=== PATIENT | female | born 1955 ===

== ENCOUNTER 2017-12-26 19:18 | Inpatient (IN) | payer MEDICAID ==
[2017-12-26 19:18] VITALS: BMI 26.6
[2017-12-26] MEDS ORDERED: Albuterol-Ipratrop 3 mg / 0.5 (3 ml) UD INH STA ×3 (19:58→23:26)
[2017-12-26 20:10] LABS: BASO # 0.1 K/uL (0.0-0.2); EOS # 0.1 K/uL (0.0-0.7); EOS % 0.7 % (0.0-4.0); HEMOGLOBIN 14.4 g/dL (11.0-16.0); LYMPH # 3.3 K/uL (1.0-4.3); LYMPH % 24.1 % (20.0-40.0); MEAN CELL VOLUME 83.4 fL (81.0-99.0); MEAN CORPUSCULAR HEMOGLOBIN 27.2 pg (27.0-31.0); MEAN CORPUSCULAR HGB CONC 32.6 g/dL (33.0-37.0); MONO # 1.9 K/uL (0.0-0.8); NEUT # 8.2 K/uL (1.8-7.0); NEUT % 60.2 % (50.0-75.0); NRBC % 0.2 % (0.0-2.0); RBC 5.3 Mil/uL (3.80-5.20); RED CELL DISTRIBUTION WIDTH 24.7 % (11.5-14.5); WHITE BLOOD COUNT 13.7 K/uL (4.8-10.8)
--- NOTE | 2017-12-26 20:11 | C.PDOC ---
History Of Present Illness 62 year old female brought in by family for a complaint of feeling weak since yesterday. Patient reports she feel once yesterday and fell again today. Patient is now complaining of chest pain and left upper arm pain. Patient also reports she has a Hx of COPD is states she feels SOB. Denies fever, nausea, or vomiting. - HPI Chief Complaint (Nursing): Trauma History Per: Patient, Family History/Exam Limitations: no limitations Onset/Duration Of Symptoms: Days Recent travel outside of the [place]: No Past Medical History Reviewed: Historical Data, Nursing Documentation, Vital Signs Vital Signs: Last Vital Signs Temp 99.3 F 12/26/17 22:45 Pulse 100 H 12/26/17 22:53 Resp 18 12/26/17 22:45 BP 108/68 12/26/17 22:45 Pulse Ox 98 12/26/17 23:32 - Medical History PMH: Anxiety, Arthritis, Asthma, COPD, Depression, Diabetes, Emphysema, HTN Surgical History: Family History: States: Unknown Family Hx - Social History Hx Tobacco Use: Yes Hx Alcohol Use: No Hx Substance Use: No - Immunization History Hx Tetanus Toxoid Vaccination: No Hx Influenza Vaccination: No (Allergic to Eggs) Hx Pneumococcal Vaccination: No (Allergic to Eggs) Review Of Systems Constitutional: Positive for: Weakness. Negative for: Fever, Chills Cardiovascular: Positive for: Chest Pain. Negative for: Palpitations Respiratory: Positive for: Shortness of Breath. Negative for: Cough Gastrointestinal: Negative for: Nausea, Vomiting, Abdominal Pain Musculoskeletal: Positive for: Arm Pain Physical Exam - Physical Exam Appears: Non-toxic, Other (Alert, Conscious) Skin: Normal Color, Warm, Dry Head: Atraumatic, Normacephalic Eye(s): bilateral: Normal Inspection Oral Mucosa: Moist Chest: Symmetrical, No Tenderness Cardiovascular: Rhythm Regular Respiratory: No Rales, Rhonchi, Wheezing Gastrointestinal/Abdominal: Soft, Tenderness (Mild epigastric/LUQ) Back: No CVA Tenderness Extremity: Tenderness (Left upper arm) Neurological/Psych: Oriented x3, Normal Speech ED Course And Treatment - Laboratory Results Result Diagrams: 12/26/17 20:04 12/26/17 20:04 ECG Interpretation: Abnormal Interpretation Of ECG: SAinus tachycardia. LAD, LBBB, abnormal tracings Rate From EC O2 Sat by Pulse Oximetry: 98 (Room air) Pulse Ox Interpretation: Normal - Radiology CXR: Interpreted by Me, Viewed By Me CXR Interpretation: Yes: Cardiomegaly. No: No Acute Disease, Infiltrates Progress Note: CT head, CT chest, EKG, blood work, CXR, and left humerus x-ray ordered. IV fluids and duoneb administered. Disposition Discussed With : Miquel Macias Doctor Will See Patient In The: Hospital Counseled Patient/Family Regarding: Diagnosis - Disposition Disposition: HOSPITALIZED Disposition Time: 23:30 Condition: STABLE Forms: [facility] (Guatemalan) - POA Present On Arrival: Falls Or Trauma - Clinical Impression Clinical Impression: COPD exacerbation, Chest pain, Recurrent falls - Scribe Statement The provider has reviewed the documentation as recorded by the Scribkirill Christian All medical record entries made by the Scribe were at my direction and personally dictated by me. I have reviewed the chart and agree that the record accurately reflects my personal performance of the history, physical exam, medical decision making, and the department course for this patient. I have also personally directed, reviewed, and agree with the discharge instructions and disposition.
[2017-12-26 20:28] LABS: INR 1.2; PROTHROMBIN TIME 12.6 SECONDS (9.7-12.2)
[2017-12-26 20:37] LABS: ALBUMIN 3.6 g/dL (3.5-5.0); ALT/SGPT 20 U/L (9-52); AST/SGOT 24 U/L (14-36); BLOOD UREA NITROGEN 15 mg/dL (7-17); CALCIUM 9.4 mg/dl (8.6-10.4); GFR AFRICAN-AMERICAN > 60; GFR NON-AFRICAN AMERICAN > 60
[2017-12-26 20:38] LABS: B-TYPE NATRIURETIC PEPTIDE 851 pg/mL (0-900)
--- NOTE | 2017-12-26 21:08 | CT ---
EXAM: CT Head Without Intravenous Contrast CLINICAL HISTORY: 62 years old, female; Signs and symptoms; Weakness, extremity; Additional info: Unsteaduness, falling TECHNIQUE: Axial computed tomography images of the head/brain without intravenous contrast. All CT scans at this facility use one or more dose reduction techniques, viz.: automated exposure control; ma/kV adjustment per patient size (including targeted exams where dose is matched to indication; i.e. head); or iterative reconstruction technique. COMPARISON: No relevant prior studies available. FINDINGS: Brain: No intracranial hemorrhage. No mass. No definite edema. Ventricles: No hydrocephalus. Bones/joints: No acute fracture. Soft tissues: Unremarkable. Vasculature: Mild atherosclerotic disease of intracranial arteries. Sinuses: No acute sinusitis. Mastoid air cells: No mastoid effusion. Orbits: Unremarkable as visualized. IMPRESSION: 1. No definite acute intracranial abnormality. Acute infarction may be CT occult within first 24 hours. If a focal deficit persists, consider followup CT or MRI for further evaluation. 2. Incidental/non-acute findings are described above.
--- NOTE | 2017-12-26 21:23 | CT ---
EXAM: CT Chest Without Intravenous Contrast CLINICAL HISTORY: 62 years old, female; Signs and symptoms; Dyspnea and shortness of breath; Additional info: Sob/ copd TECHNIQUE: Axial computed tomography images of the chest without intravenous contrast. All CT scans at this facility use one or more dose reduction techniques, viz.: automated exposure control; ma/kV adjustment per patient size (including targeted exams where dose is matched to indication; i.e. head); or iterative reconstruction technique. Coronal and sagittal reformatted images were created and reviewed. COMPARISON: No relevant prior studies available. FINDINGS: Limitations: Lack of intravenous contrast. Motion artifact - mild to moderate. Lungs: Mild peripheral atelectasis/scarring. No consolidation. RLL calcified granuloma. Few pulmonary nodules, up to 0.4 cm. Pleural space: No pneumothorax. No significant effusion. Heart: Borderline cardiomegaly. No significant pericardial effusion. Bones/joints: Mild degenerative changes of spine. No acute fracture. Soft tissues: Unremarkable. Vasculature: Mild atherosclerotic disease. No aneurysm. Lymph nodes: No pathologically enlarged lymph nodes. IMPRESSION: 1. Pulmonary nodules. For low-risk patients, no follow-up is necessary. For high-risk patients (smoking history or other known risk factors) an optional CT at 12 months could be performed. 2. Incidental/non-acute findings are described above.
[2017-12-26] MEDS ORDERED: Iodixanol 320 MG/ML 100 ML BOTTLE IV ONE (21:43)
[2017-12-26] MEDS ORDERED: Albuterol-Ipratrop 3 mg / 0.5 (3 ml) UD ONE ×2 (22:48→23:30)
--- NOTE | 2017-12-26 23:16 | CT ---
EXAM: CT Angiography Chest With Intravenous Contrast CLINICAL HISTORY: 62 years old, female; Signs and symptoms; Dyspnea; Additional info: Elevated d-dimer TECHNIQUE: Axial computed tomographic angiography images of the chest with intravenous contrast using pulmonary embolism protocol. All CT scans at this facility use one or more dose reduction techniques, viz.: automated exposure control; ma/kV adjustment per patient size (including targeted exams where dose is matched to indication; i.e. head); or iterative reconstruction technique. MIP reconstructed images were created and reviewed. Coronal and sagittal reformatted images were created and reviewed. CONTRAST: 100 mL of VISIPAQUE 320 administered intravenously. COMPARISON: CT - CHEST W/O CONTRAST 2017-12-26 20:49 FINDINGS: Limitations: Motion artifact - mild. Pulmonary arteries: No definite pulmonary embolism. Aorta: Mild atherosclerotic disease. No aneurysm. Lungs: Mild peripheral atelectasis/scarring. No consolidation. Few pulmonary nodules, up to 0.3 cm. RLL calcified granuloma. Pleural space: No significant effusion. No pneumothorax. Heart: Borderline cardiomegaly. No significant pericardial effusion. Bones/joints: Mild degenerative changes of spine. No acute fracture. Soft tissues: Unremarkable. Lymph nodes: No pathologically enlarged lymph nodes. IMPRESSION: 1. No definite CT evidence of pulmonary embolism. 2. Pulmonary nodules. For low-risk patients, no follow-up is necessary. For high-risk patients (smoking history or other known risk factors) an optional CT at 12 months could be performed. 3. Incidental/non-acute findings are described above.
[2017-12-27] MEDS: Acetylcysteine 20% Inhal Soln (4ml) INH SCH ×4 (03:04→20:46)
[2017-12-27] MEDS: guaiFENesin 600 mg ER Tab PO SCH ×3 (03:41→18:32)
[2017-12-27 04:13] LABS: CK-MB 0.42 ng/mL (0.0-3.38)
[2017-12-27] MEDS: Fluticasone-Salmeterol 250-50mcg Diskus INH SCH ×2 (08:28→20:46)
[2017-12-27] MEDS: Albuterol-Ipratrop 3 mg / 0.5 (3 ml) UD INH SCH ×3 (08:54→20:46)
--- NOTE | 2017-12-27 09:23 | RAD ---
HISTORY: SOB COMPARISON: Chest x-ray 11/16/2017 TECHNIQUE: Chest one view . FINDINGS: LUNGS: Mild pulmonary vascular congestion. PLEURA: No pleural effusion is identified. CARDIOVASCULAR: Heart size is mildly enlarged.Atherosclerotic calcifications noted of the aorta. OSSEOUS STRUCTURES: Small calcification in the region of the right superior rotator cuff insertion, likely calcific tendinopathy. VISUALIZED UPPER ABDOMEN: Unremarkable. OTHER FINDINGS: None. IMPRESSION: Mild pulmonary vascular congestion. Mild cardiomegaly.
--- NOTE | 2017-12-27 10:00 | RAD ---
Left humerus three views History: Injury. Comparison: None available. Findings: No evidence of acute displaced fracture or dislocation. Impression: Negative acute. If pain persists, consider MRI.
[2017-12-27] MEDS: Enoxaparin 40 mg Syringe SC SCH (10:13)
[2017-12-27 13:17] LABS: CK-MB 0.45 ng/mL (0.0-3.38)
--- NOTE | 2017-12-27 13:59 | CARD ---
APPROVED REPORT EKG Measurement Heart [id number] <Conclusion> Sinus tachycardia Left axis deviation Left bundle branch block Abnormal ECG
--- NOTE | 2017-12-27 18:08 | CP.PCM.CON ---
History of Present Illness - History of Present Illness History of Present Illness: Mrs. Thomas is a 62-year-old woman with a past medical history of COPD, dyslipidemia, chronic pain, peripheral neuropathy, who presents with progressive weakness, mostly in the lower extremities, bilaterally. She states that she feels as though she can no longer get out of bed without assistance and has difficulty with ambulation. This weakness seems to have progressed over the last week. The patient also complains of back pain in the mid and lower back. CT scan of the head was normal. Review of Systems - Review of Systems All systems: reviewed and no additional remarkable complaints except Past Patient History - Infectious Disease Hx of Infectious Diseases: None - Past Medical History & Family History Past Medical History?: Yes - Past Social History Smoking Status: Light Smoker < 10 Cigarettes Daily - CARDIAC Hx Hypertension: Yes - PULMONARY Hx Chronic Obstructive Pulmonary Disease (COPD): Yes - ENDOCRINE/METABOLIC Hx Diabetes Mellitus Type 2: Yes - MUSCULOSKELETAL/RHEUMATOLOGICAL Hx Arthritis: Yes - PSYCHIATRIC Hx Substance Use: No - SURGICAL HISTORY Hx Section: Yes - ANESTHESIA Hx Anesthesia: Yes Hx Anesthesia Reactions: No Meds Allergies/Adverse Reactions: Allergies Allergy/AdvReac Type Severity Reaction Status Date / Time aspirin Allergy VOMITING Verified 06/14/16 12:03 EGG Allergy RASH Verified 12/26/17 19:28 - Medications Medications: Current Medications Acetylcysteine (Acetylcysteine 20%) 4 ml INH Q6H [facility] Last Admin: 12/27/17 13:56 Dose: 4 ml Albuterol/Ipratropium (Duoneb 3 Mg/0.5 Mg (3 Ml) Ud) 3 ml INH RQ6 [facility] Last Admin: 12/27/17 13:56 Dose: 3 ml Enoxaparin Sodium (Lovenox) 40 mg SC DAILY [facility] Last Admin: 12/27/17 10:13 Dose: 40 mg Gabapentin (Neurontin) 300 mg PO BID [facility] Last Admin: 12/27/17 10:13 Dose: 300 mg Guaifenesin (Mucinex La) 600 mg PO BID [facility] Last Admin: 12/27/17 10:13 Dose: 600 mg Lorazepam (Ativan) 0.5 mg PO TID PRN PRN Reason: Anxiety Methylprednisolone (Solu-Medrol) 60 mg IV Q12 [facility] Last Admin: 12/27/17 10:15 Dose: 60 mg Montelukast Sodium (Singulair) 10 mg PO HS [facility] Rosuvastatin Calcium (Crestor) 5 mg PO HS [facility] Fluticasone/Salmeterol (Advair Diskus 250/50) 1 puff INH RQ12 [facility] Last Admin: 12/27/17 08:28 Dose: Not Given Tramadol HCl (Ultram) 50 mg PO TID [facility] Last Admin: 12/27/17 13:31 Dose: 50 mg Physical Exam - Constitutional Appears: Well - Head Exam Head Exam: ATRAUMATIC, NORMAL INSPECTION, NORMOCEPHALIC - Eye Exam Eye Exam: EOMI, Normal appearance, PERRL - Cardiovascular Exam Cardiovascular Exam: REGULAR RHYTHM - Neurological Exam Neurological exam: Abnormal Gait, Alert, CN II-XII Intact, Oriented x3 Additional comments: Reflexes were normal. Strength in bilateral upper extremities was 4/5 for flexion and 3/5 for extension proximally and distally. Strength in bilateral lower extremities was 3/5 proximally and 4/5 distally, bilaterally. Sensation was intact throughout to LT/P. Gait could not be assessed. Results - Vital Signs Recent Vital Signs: Last Vital Signs Temp 97.3 F L 12/27/17 17:15 Pulse 92 H 12/27/17 17:15 Resp 20 12/27/17 17:15 BP 113/71 12/27/17 17:15 Pulse Ox 94 L 12/27/17 17:15 - Labs Result Diagrams: 12/26/17 20:04 12/26/17 20:04 Labs: Laboratory Results - last 24 hr 12/26/17 12/26/17 12/26/17 20:04 20:04 20:04 WBC 13.7 H RBC 5.30 H Hgb 14.4 Hct 44.2 MCV 83.4 D MCH 27.2 MCHC 32.6 L RDW 24.7 H Plt Count 413 H MPV 8.0 Neut % (Auto) 60.2 Lymph % (Auto) 24.1 [place] % (Auto) 14.0 H Eos % (Auto) 0.7 Baso % (Auto) 1.0 Neut # (Auto) 8.2 H Lymph # (Auto) 3.3 [place] # (Auto) 1.9 H Eos # (Auto) 0.1 Baso # (Auto) 0.1 PT 12.6 H INR 1.2 APTT 35 H D-Dimer, Quantitative 259 H Sodium 137 Potassium 4.3 Chloride 94 L Carbon Dioxide 36 H Anion Gap 11 BUN 15 Creatinine 0.7 Est GFR ( Amer) > 60 Est GFR (Non-Af Amer) > 60 POC Glucose (mg/dL) Random Glucose 128 H Calcium 9.4 Total Bilirubin 0.5 AST 24 ALT 20 Alkaline Phosphatase 135 H Total Creatine Kinase CK-MB (Mass) Troponin I NT-Pro-B Natriuret Pep 851 Total Protein 7.4 Albumin 3.6 Globulin 3.8 Albumin/Globulin Ratio 1.0 12/26/17 12/27/17 12/27/17 21:35 03:43 06:15 WBC RBC Hgb Hct MCV MCH MCHC RDW Plt Count MPV Neut % (Auto) Lymph % (Auto) [place] % (Auto) Eos % (Auto) Baso % (Auto) Neut # (Auto) Lymph # (Auto) [place] # (Auto) Eos # (Auto) Baso # (Auto) PT INR APTT D-Dimer, Quantitative Sodium Potassium Chloride Carbon Dioxide Anion Gap BUN Creatinine Est GFR ( Amer) Est GFR (Non-Af Amer) POC Glucose (mg/dL) 182 H Random Glucose Calcium Total Bilirubin AST ALT Alkaline Phosphatase Total Creatine Kinase 764 H CK-MB (Mass) 0.42 Troponin I < 0.0120 < 0.0120 NT-Pro-B Natriuret Pep Total Protein Albumin Globulin Albumin/Globulin Ratio 12/27/17 12/27/17 11:38 11:45 WBC RBC Hgb Hct MCV MCH MCHC RDW Plt Count MPV Neut % (Auto) Lymph % (Auto) [place] % (Auto) Eos % (Auto) Baso % (Auto) Neut # (Auto) Lymph # (Auto) [place] # (Auto) Eos # (Auto) Baso # (Auto) PT INR APTT D-Dimer, Quantitative Sodium Potassium Chloride Carbon Dioxide Anion Gap BUN Creatinine Est GFR ( Amer) Est GFR (Non-Af Amer) POC Glucose (mg/dL) 156 H Random Glucose Calcium Total Bilirubin AST ALT Alkaline Phosphatase Total Creatine Kinase 645 H CK-MB (Mass) 0.45 Troponin I < 0.0120 NT-Pro-B Natriuret Pep Total Protein Albumin Globulin Albumin/Globulin Ratio Assessment & Plan (1) Lower extremity weakness Assessment and Plan: The patient also complains of back pain and her reflexes are normal. She may have spinal cord involvement in the thoraco-lumbar region, or radiculopathy. I would like to obtain an MRI of the thoracic and lumbar spine for further evaluation. Thank you. Status: Acute Priority: High
[2017-12-28] MEDS: Acetylcysteine 20% Inhal Soln (4ml) INH SCH ×2 (02:03→08:42)
--- NOTE | 2017-12-28 05:40 | CP.PCM.HP ---
History of Present Illness - History of Present Illness History of Present Illness: Mrs. Thomas is a 62-year-old woman with a past medical history of COPD, dyslipidemia, chronic pain, peripheral neuropathy, who presents with progressive weakness, mostly in the lower extremities, bilaterally. She states that she feels as though she can no longer get out of bed without assistance and has difficulty with ambulation. This weakness seems to have progressed over the last week. The patient also complains of back pain in the mid and lower back. CT scan of the head was normal Present on Admission - Present on Admission Any Indicators Present on Admission: Yes Review of Systems - Review of Systems Systems not reviewed;Unavailable: Acuity of Condition - Constitutional Constitutional: Fatigue, Frequent Falls, Lethargy, Malaise. absent: As Per HPI , Anorexia, Chills, Daytime Sleepiness, Excessive Sweating, Fever, Headache, Increased Appetite, Night Sweats, Snoring, Sleep Apnea, Weight Gain, Weight Loss , Weakness, Other - Cardiovascular Cardiovascular: Dyspnea, Leg Edema. absent: As Per HPI, Acrocyanosis, Chest Pain, Chest Pain at Rest, Chest Pain with Activity, Claudication, Diaphoresis, Dyspnea on Exertion, Edema, Irregular Heart Rhythm, Pain Radiating to Arm/Neck/ Jaw, Leg Ulcers, Lightheadedness, Orthopnea, Palpitations, Paroxysmal Nocturnal Dyspnea, Pedal Edema, Radiating Pain, Rapid Heart Rate, Slow Heart Rate, Syncope , Other - Respiratory Respiratory: Cough. absent: As Per HPI, Dyspnea, Hemoptysis, Dyspnea on Exertion, Wheezing, Snoring, Stridor, Pain on Inspiration, Chest Congestion, Excessive Mucous Production, Change in Mucous Color, Pain with Coughing, Other - Gastrointestinal Gastrointestinal: absent: As Per HPI, Abdominal Pain, Belching, Bloating, Change in Bowel Habits, Change in Stool Character, Coffee Ground Emesis, Constipation, Cramping, Diarrhea, Dyspepsia, Dysphagia, Early Satiety, Excessive Flatus, Fecal Incontinence, Heartburn, Hematemesis, Hematochezia, Loose Stools, Melena, Nausea, Odynophagia, Temesmus, Vomiting, Other - Genitourinary Genitourinary: absent: As Per HPI, Change in Urinary Stream, Difficulty Urinating, Dysuria, Flank Pain, Hematuria, Pyuria, Nocturia, Urinary Incontinence, Urinary Frequency, Urinary Hesitance, Urinary Urgency, Voiding Freq/Small Amts, Freq UTI, Hx Renal/Bladder Calculi, Hx /Renal Surgery, Bladder Distension, Other - Reproductive: Female Reproductive:Female: absent: As Per HPI, Amenorrhea, Amenorrhea/ Control, Currently Menstual, Cycle <21 Days, Cycle >35 Days, Cycle Variable, Menses 1-7 Days, Menses >/= 8 Days, Menses Variable, Cycle > 4 Weeks Between, No Menses for 6 Months, Heavy Menses, Light Menses, Normal Menses, Spotting Between Cycles , S/P Hysterectomy, Menopausal, Post Menopausal, Premenarche, Abnormal Vaginal Bleeding, Dysmenorrhea, Dyspareunia, Genital Lesions, Genital Pruritis, Pelvic Pain, Prolapse Symptoms, Sexual Dysfunction, Vaginal Discharge, Vaginal Dryness , Vaginal Odor, Vaginal Pruritis, Other - Menstruation Menstruation: absent: As Per HPI, Amenorrhea, Amenorrhea/ Control, Currently Menstual, Cycle <21 Days, Cycle >35 Days, Cycle Variable, Menses 1-7 Days, Menses >/= 8 Days, Menses Variable, Cycle > 4 Weeks Between, No Menses for 6 Months, Heavy Menses, Light Menses, Normal Menses, Spotting Between Cycles , S/P Hysterectomy, Menopausal, Post Menopausal, Premenarche, Abnormal Vaginal Bleeding, Dysmenorrhea, Other - Musculoskeletal Musculoskeletal: Muscle Weakness, Myalgias - Integumentary Integumentary: Dry Skin - Neurological Neurological: Abnormal Gait - Psychiatric Psychiatric: absent: As Per HPI, Abnormal Sleep Pattern, Anhedonia, Anxiety, Auditory Hallucinations, Behavioral Changes, Change in Appetite, Change in Libido, Confusion, Depression, Difficulty Concentrating, Hallucinations, Homicidal Ideation, Hopelessness, Irritability, Memory Loss, Mood Swings, Panic Attacks, Paranoia, Suicidal Ideation, Visual Hallucinations, Tactile Hallucinations, Other - Endocrine Endocrine: absent: As Per HPI, Change in Body Appearance, Change in Libido, Cold Intolorance, Deepening of Voice, Excessive Sweating, Fatigue, Flushing, Heat Intolorance, Increase in Ring/Shoe/Hat Size, Palpitations, Polydipsia, Polyphagia, Polyuria, Other Past Patient History - Infectious Disease Hx of Infectious Diseases: None - Past Medical History & Family History Past Medical History?: Yes - Past Social History Smoking Status: Light Smoker < 10 Cigarettes Daily - CARDIAC Hx Hypertension: Yes - PULMONARY Hx Chronic Obstructive Pulmonary Disease (COPD): Yes - ENDOCRINE/METABOLIC Hx Diabetes Mellitus Type 2: Yes - MUSCULOSKELETAL/RHEUMATOLOGICAL Hx Arthritis: Yes - PSYCHIATRIC Hx Substance Use: No - SURGICAL HISTORY Hx Section: Yes - ANESTHESIA Hx Anesthesia: Yes Hx Anesthesia Reactions: No Meds Home Medications: Home Medication List Medication Instructions Recorded Confirmed Type predniSONE [Prednisone] 10 mg PO DAILY #8 tab 12/29/17 Rx Allergies/Adverse Reactions: Allergies Allergy/AdvReac Type Severity Reaction Status Date / Time aspirin Allergy VOMITING Verified 06/14/16 12:03 EGG Allergy RASH Verified 12/26/17 19:28 Physical Exam - Constitutional Appears: No Acute Distress - Head Exam Head Exam: ATRAUMATIC, NORMAL INSPECTION, NORMOCEPHALIC - Eye Exam Eye Exam: EOMI, Normal appearance, PERRL Pupil Exam: NORMAL ACCOMODATION, PERRL - Respiratory Exam Respiratory Exam: Decreased Breath Sounds, Wheezes - GI/Abdominal Exam GI & Abdominal Exam: Normal Bowel Sounds, Soft. absent: Tenderness - Rectal Exam Rectal Exam: Deferred Results - Vital Signs Recent Vital Signs: Last Vital Signs Temp 98.2 F 12/27/17 23:35 Pulse 82 12/28/17 04:12 Resp 20 12/27/17 23:35 BP 124/65 12/28/17 04:00 Pulse Ox 98 12/27/17 23:35 - Labs Result Diagrams: 12/28/17 08:57 12/28/17 08:57 Labs: Laboratory Results - last 24 hr 12/27/17 12/27/17 12/27/17 06:15 11:38 11:45 POC Glucose (mg/dL) 182 H 156 H Total Creatine Kinase 645 H CK-MB (Mass) 0.45 Troponin I < 0.0120 12/27/17 12/27/17 17:03 21:14 POC Glucose (mg/dL) 267 H 239 H Total Creatine Kinase CK-MB (Mass) Troponin I Assessment & Plan (1) COPD exacerbation Status: Acute (2) Lower extremity weakness Status: Acute Priority: High (3) Recurrent falls Status: Acute (4) Left bundle branch block (LBBB) Status: Acute (5) Asthma Status: Acute
--- NOTE | 2017-12-28 08:14 | CP.PCM.PN ---
Subjective - Date & Time of Evaluation Date of Evaluation: 12/28/17 Time of Evaluation: 08:12 - Subjective Subjective: Ms. Thomas was seen and examined at the bedside. She is alert, oriented in all spheres. She denies any discomfort except weakness of her bilateral lower extremities. She is able toraise both legs more than 10 seconds, but claims of feeling weak when standing and walking. She is able to follow commands.There was no untoward events overnight. Objective - Vital Signs/Intake and Output Vital Signs (last 24 hours): Temp Pulse Resp BP Pulse Ox 98.2 F 82 20 124/65 98 12/27/17 23:35 12/28/17 04:12 12/27/17 23:35 12/28/17 04:00 12/27/17 23:35 - Medications Medications: Current Medications Acetylcysteine (Acetylcysteine 20%) 4 ml INH Q6H [facility] Last Admin: 12/28/17 02:03 Dose: Not Given Albuterol/Ipratropium (Duoneb 3 Mg/0.5 Mg (3 Ml) Ud) 3 ml INH RQ6 [facility] Last Admin: 12/27/17 20:46 Dose: Not Given Enoxaparin Sodium (Lovenox) 40 mg SC DAILY [facility] Last Admin: 12/27/17 10:13 Dose: 40 mg Gabapentin (Neurontin) 300 mg PO BID [facility] Last Admin: 12/27/17 18:32 Dose: 300 mg Guaifenesin (Mucinex La) 600 mg PO BID [facility] Last Admin: 12/27/17 18:32 Dose: 600 mg Lorazepam (Ativan) 0.5 mg PO TID PRN PRN Reason: Anxiety Methylprednisolone (Solu-Medrol) 60 mg IV Q12 [facility] Last Admin: 12/27/17 21:38 Dose: 60 mg Montelukast Sodium (Singulair) 10 mg PO HS [facility] Last Admin: 12/27/17 21:38 Dose: 10 mg Rosuvastatin Calcium (Crestor) 5 mg PO HS [facility] Last Admin: 12/27/17 21:37 Dose: 5 mg Fluticasone/Salmeterol (Advair Diskus 250/50) 1 puff INH RQ12 [facility] Last Admin: 12/27/17 20:46 Dose: Not Given Tramadol HCl (Ultram) 50 mg PO TID [facility] Last Admin: 12/27/17 18:31 Dose: 50 mg - Labs Labs: 12/26/17 20:04 12/26/17 20:04 PT 12.6 SECONDS (9.7-12.2) H 12/26/17 20:04 INR 1.2 12/26/17 20:04 APTT 35 SECONDS (21-34) H 12/26/17 20:04 - Constitutional Appears: No Acute Distress - Head Exam Head Exam: NORMAL INSPECTION - Eye Exam Pupil Exam: PERRL - Neurological Exam Neurological Exam: Alert, Awake, Oriented x3 Neuro motor strength exam: Left Upper Extremity: 5, Right Upper Extremity: 5, Left Lower Extremity: 5 (weak upon standing), Right Lower Extremity: 5 (weak upo )
[2017-12-28] MEDS: Fluticasone-Salmeterol 250-50mcg Diskus INH SCH (08:42)
[2017-12-28] MEDS: Albuterol-Ipratrop 3 mg / 0.5 (3 ml) UD INH SCH ×2 (08:42→13:13)
[2017-12-28 09:08] LABS: BASO % 0.4 % (0.0-2.0); HEMOGLOBIN 13.2 g/dL (11.0-16.0); LYMPH # 1.1 K/uL (1.0-4.3); LYMPH % 10.6 % (20.0-40.0); MEAN CELL VOLUME 82.8 fL (81.0-99.0); MEAN CORPUSCULAR HEMOGLOBIN 27.3 pg (27.0-31.0); MEAN PLATELET VOLUME 8.1 fL (7.2-11.7); MONO # 0.6 K/uL (0.0-0.8); MONO % 5.9 % (0.0-10.0); NEUT # 8.6 K/uL (1.8-7.0); NEUT % 83.1 % (50.0-75.0); NRBC % 0.1 % (0.0-2.0); RBC 4.82 Mil/uL (3.80-5.20); RED CELL DISTRIBUTION WIDTH 23.3 % (11.5-14.5); WHITE BLOOD COUNT 10.4 K/uL (4.8-10.8)
[2017-12-28 09:26] LABS: BLOOD UREA NITROGEN 28 mg/dL (7-17); CALCIUM 8.7 mg/dl (8.6-10.4); GFR AFRICAN-AMERICAN > 60; GFR NON-AFRICAN AMERICAN > 60
[2017-12-28 09:33] LABS: CK-MB < 0.22 ng/mL (0.0-3.38)
[2017-12-28] MEDS: guaiFENesin 600 mg ER Tab PO SCH ×2 (10:00→18:47)
[2017-12-28] MEDS: Enoxaparin 40 mg Syringe SC SCH (10:01)
[2017-12-29 00:28] VITALS: RESP 20
[2017-12-29] MEDS: Albuterol-Ipratrop 3 mg / 0.5 (3 ml) UD INH SCH ×3 (01:32→13:03)
[2017-12-29] MEDS: Acetylcysteine 20% Inhal Soln (4ml) INH SCH ×2 (01:32→09:05)
[2017-12-29 04:08] VITALS: PULSE 72
--- NOTE | 2017-12-29 04:14 | CP.PCM.PN ---
Subjective - Date & Time of Evaluation Date of Evaluation: 12/28/17 Time of Evaluation: 19:45 - Subjective Subjective: was seen and examined at the bedside. She is alert, oriented in all spheres. She denies any discomfort except weakness of her bilateral lower extremities hence difficulty ambulting She is able toraise both legs more than 10 seconds, but claims of feeling weak when standing and walking. She is able to follow commands.There was no untoward events overnight. peding MRI of lumbar spine Objective - Vital Signs/Intake and Output Vital Signs (last 24 hours): Temp Pulse Resp BP Pulse Ox 98.2 F 72 20 127/69 97 12/28/17 23:30 12/29/17 01:00 12/28/17 23:30 12/28/17 23:30 12/28/17 23:30 Intake and Output: 12/28/17 12/29/17 18:59 06:59 Intake Total 780 300 Balance 780 300 - Medications Medications: Current Medications Acetylcysteine (Acetylcysteine 20%) 4 ml INH Q6H [facility] Last Admin: 12/29/17 01:32 Dose: 4 ml Albuterol/Ipratropium (Duoneb 3 Mg/0.5 Mg (3 Ml) Ud) 3 ml INH RQ6 [facility] Last Admin: 12/29/17 01:32 Dose: 3 ml Enoxaparin Sodium (Lovenox) 40 mg SC DAILY [facility] Last Admin: 12/28/17 10:01 Dose: 40 mg Gabapentin (Neurontin) 300 mg PO BID [facility] Last Admin: 12/28/17 18:47 Dose: 300 mg Guaifenesin (Mucinex La) 600 mg PO BID [facility] Last Admin: 12/28/17 18:47 Dose: 600 mg Lorazepam (Ativan) 0.5 mg PO TID PRN PRN Reason: Anxiety Last Admin: 12/28/17 22:15 Dose: 0.5 mg Methylprednisolone (Solu-Medrol) 60 mg IV Q12 [facility] Last Admin: 12/28/17 22:12 Dose: 60 mg Montelukast Sodium (Singulair) 10 mg PO HS [facility] Last Admin: 12/28/17 22:12 Dose: 10 mg Rosuvastatin Calcium (Crestor) 5 mg PO HS [facility] Last Admin: 12/28/17 22:12 Dose: 5 mg Fluticasone/Salmeterol (Advair Diskus 250/50) 1 puff INH RQ12 [facility] Last Admin: 12/28/17 08:42 Dose: Not Given Tramadol HCl (Ultram) 50 mg PO TID [facility] Last Admin: 12/28/17 18:48 Dose: 50 mg - Labs Labs: 12/28/17 08:57 12/28/17 08:57 PT 12.6 SECONDS (9.7-12.2) H 12/26/17 20:04 INR 1.2 12/26/17 20:04 APTT 35 SECONDS (21-34) H 12/26/17 20:04 - Constitutional Appears: No Acute Distress - Head Exam Head Exam: ATRAUMATIC, NORMAL INSPECTION, NORMOCEPHALIC - Eye Exam Eye Exam: EOMI, Normal appearance, PERRL Pupil Exam: NORMAL ACCOMODATION, PERRL - ENT Exam ENT Exam: Mucous Membranes Moist, Normal Exam - Respiratory Exam Respiratory Exam: Clear to Ausculation Bilateral, NORMAL BREATHING PATTERN - Cardiovascular Exam Cardiovascular Exam: REGULAR RHYTHM, +S1, +S2. absent: Murmur - GI/Abdominal Exam GI & Abdominal Exam: Soft, Normal Bowel Sounds. absent: Tenderness - Rectal Exam Rectal Exam: Deferred Assessment and Plan (1) COPD exacerbation Status: Acute (2) Dyspnea Status: Acute (3) Exacerbation of asthma Status: Acute (4) Left bundle branch block (LBBB) Status: Acute
[2017-12-29 07:55] VITALS: BP 138/71; TEMP 97.9; O2SAT 100
[2017-12-29] MEDS: Fluticasone-Salmeterol 250-50mcg Diskus INH SCH (09:02)
[2017-12-29] MEDS: Enoxaparin 40 mg Syringe SC SCH (10:34)
[2017-12-29] MEDS: guaiFENesin 600 mg ER Tab PO SCH (10:39)
--- NOTE | 2017-12-29 10:53 | MRI ---
PROCEDURE: MR THORACIC SPINE WITHOUT CONTRAST HISTORY: bilateral lower extremity weakness COMPARISON: None available. TECHNIQUE: Multiecho multiplanar sequences were performed through the thoracic spine without the use of intravenous contrast. FINDINGS: ALIGNMENT: Normal thoracic spinal alignment. Normal thoracic kyphosis. VERTEBRA: Vertebral body height are preserved. MARROW: Marrow signal unremarkable. PARASPINAL SOFT TISSUES: Unremarkable. CORD: Unremarkable thoracic cord. No volume loss, signal abnormality or syrinx. DISCS: Limited disc osteophyte complexes are identified at T6-7 and T7-8 as well as limited disc bulging at T8-9 and T9-10 without significant stenosis of the central canal. No neural foraminal stenosis throughout the examination. OTHER FINDINGS: None. IMPRESSION: Mild mid to inferior degenerative disc changes are identified without significant central canal stenosis resulting. No neural foraminal stenosis throughout. No disc herniation or fracture.
--- NOTE | 2017-12-29 18:00 | CP.PCM.PN ---
Subjective - Date & Time of Evaluation Date of Evaluation: 12/29/17 Time of Evaluation: 11:00 - Subjective Subjective: Awake, alert, no distress noted, able to walk short distances. Objective - Vital Signs/Intake and Output Vital Signs (last 24 hours): Temp Pulse Resp BP Pulse Ox 97.9 F 72 20 138/71 100 12/29/17 07:00 12/29/17 07:00 12/29/17 07:00 12/29/17 07:00 12/29/17 07:00 Intake and Output: 12/29/17 12/29/17 06:59 18:59 Intake Total 300 Balance 300 - Labs Labs: 12/28/17 08:57 12/28/17 08:57 PT 12.6 SECONDS (9.7-12.2) H 12/26/17 20:04 INR 1.2 12/26/17 20:04 APTT 35 SECONDS (21-34) H 12/26/17 20:04 Assessment and Plan - Assessment and Plan (Free Text) Assessment: Patient admitted with complaints of difficulty with walking and weakness, seen and examined. No acute complaits of pain, able to walk to the bathroom. Discussed with DR Macias, plan to discharge home on tapering dose of prednisone. RX for walker given. Patient has rest of the medications at home. Advised to bring all the meds to the office to re-evaluate. Daughter verbalized understanding.
--- NOTE | 2017-12-30 05:49 | CP.PCM.DIS ---
Provider - Provider Date of Admission: 12/27/17 13:39 Attending physician: Miquel Macias MD Time Spent in preparation of Discharge (in minutes): 45 Diagnosis - Discharge Diagnosis (1) COPD exacerbation Status: Acute (2) Lower extremity weakness Status: Acute Priority: High (3) Recurrent falls Status: Acute (4) Left bundle branch block (LBBB) Status: Acute Hospital Course - Lab Results Lab Results: Most Recent Lab Values WBC 10.4 K/uL (4.8-10.8) 12/28/17 08:57 RBC 4.82 Mil/uL (3.80-5.20) 12/28/17 08:57 Hgb 13.2 g/dL (11.0-16.0) 12/28/17 08:57 Hct 39.9 % (34.0-47.0) 12/28/17 08:57 MCV 82.8 fL (81.0-99.0) 12/28/17 08:57 MCH 27.3 pg (27.0-31.0) 12/28/17 08:57 MCHC 33.0 g/dL (33.0-37.0) 12/28/17 08:57 RDW 23.3 % (11.5-14.5) H 12/28/17 08:57 Plt Count 378 K/uL (130-400) 12/28/17 08:57 MPV 8.1 fL (7.2-11.7) 12/28/17 08:57 Neut % (Auto) 83.1 % (50.0-75.0) H 12/28/17 08:57 Lymph % (Auto) 10.6 % (20.0-40.0) L 12/28/17 08:57 [place] % (Auto) 5.9 % (0.0-10.0) 12/28/17 08:57 Eos % (Auto) 0.0 % (0.0-4.0) 12/28/17 08:57 Baso % (Auto) 0.4 % (0.0-2.0) 12/28/17 08:57 Neut # (Auto) 8.6 K/uL (1.8-7.0) H 12/28/17 08:57 Lymph # (Auto) 1.1 K/uL (1.0-4.3) 12/28/17 08:57 [place] # (Auto) 0.6 K/uL (0.0-0.8) 12/28/17 08:57 Eos # (Auto) 0.0 K/uL (0.0-0.7) 12/28/17 08:57 Baso # (Auto) 0.0 K/uL (0.0-0.2) 12/28/17 08:57 PT 12.6 SECONDS (9.7-12.2) H 12/26/17 20:04 INR 1.2 12/26/17 20:04 APTT 35 SECONDS (21-34) H 12/26/17 20:04 D-Dimer, Quantitative 259 ng/mlDDU (0-243) H 12/26/17 20:04 Sodium 142 mmol/L (132-148) 12/28/17 08:57 Potassium 4.5 mmol/L (3.6-5.2) 12/28/17 08:57 Chloride 97 mmol/L (98-107) L 12/28/17 08:57 Carbon Dioxide 35 mmol/L (22-30) H 12/28/17 08:57 Anion Gap 14 (10-20) 12/28/17 08:57 BUN 28 mg/dL (7-17) H 12/28/17 08:57 Creatinine 0.7 mg/dL (0.7-1.2) 12/28/17 08:57 Est GFR ( Amer) > 60 12/28/17 08:57 Est GFR (Non-Af Amer) > 60 12/28/17 08:57 POC Glucose (mg/dL) 194 mg/dL (65-110) H 12/29/17 11:17 Random Glucose 181 mg/dL (65-105) H 12/28/17 08:57 Calcium 8.7 mg/dl (8.6-10.4) 12/28/17 08:57 Total Bilirubin 0.5 mg/dL (0.2-1.3) 12/26/17 20:04 AST 24 U/L (14-36) 12/26/17 20:04 ALT 20 U/L (9-52) 12/26/17 20:04 Alkaline Phosphatase 135 U/L (38-126) H 05/23/18 20:04 Total Creatine Kinase 216 U/L (30-135) H 12/28/17 08:57 CK-MB (Mass) < 0.22 ng/mL (0.0-3.38) 12/28/17 08:57 Troponin I < 0.0120 ng/mL (0.00-0.120) 12/28/17 08:57 NT-Pro-B Natriuret Pep 851 pg/mL (0-900) 12/26/17 20:04 Total Protein 7.4 g/dL (6.3-8.3) 12/26/17 20:04 Albumin 3.6 g/dL (3.5-5.0) 12/26/17 20:04 Globulin 3.8 gm/dL (2.2-3.9) 12/26/17 20:04 Albumin/Globulin Ratio 1.0 (1.0-2.1) 12/26/17 20:04 - Hospital Course Hospital Course: Patient admitted with complaints of difficulty with walking and weakness, seen and examined. No acute complaits of pain, able to walk to the bathroom. plan to discharge home on tapering dose of prednisone. RX for walker given. Patient has rest of the medications at home. Advised to bring all the meds to the office to re-evaluate. Daughter verbalized understanding. Discharge Exam - Head Exam Head Exam: ATRAUMATIC, NORMAL INSPECTION, NORMOCEPHALIC - Eye Exam Eye Exam: EOMI, Normal appearance, PERRL Pupil Exam: NORMAL ACCOMODATION, PERRL - ENT Exam ENT Exam: Mucous Membranes Moist - Respiratory Exam Respiratory Exam: Decreased Breath Sounds, Rales - Cardiovascular Exam Cardiovascular Exam: +S1, +S2 - GI/Abdominal Exam GI & Abdominal Exam: Normal Bowel Sounds Discharge Plan - Discharge Medications Prescriptions: predniSONE [Prednisone] 10 mg PO DAILY #8 tab - Follow Up Plan Condition: STABLE Disposition: HOME/ ROUTINE Instructions: Asthma in Adults, Asthma, Adult (DC), Preventing Falls, Asthma ( DC), Asthma (GEN) Referrals: Miquel Macias MD [Staff Provider] -
== END 2017-12-29 16:37 | disposition home or self-care (01) | DRG 88 ==
LOC: C.ER 19:18 → C.9E 23:49 → C.6T 23:52 → OBSVTOIN 12-27 13:39
PROVIDERS: ADMIT Internal Medicine; ATTEND Internal Medicine
DX: J44.1 Chronic obstructive pulmonary disease with (acute) exacerbation (principal); J45.901 Unspecified asthma with (acute) exacerbation; E11.40 Type 2 diabetes mellitus with diabetic neuropathy, unspecified; E11.9 Type 2 diabetes mellitus without complications; E78.5 Hyperlipidemia, unspecified; I10 Essential (primary) hypertension; I44.7 Left bundle-branch block, unspecified; R29.6 Repeated falls

== ENCOUNTER 2018-08-17 09:09 | Inpatient (IN) | payer MEDICAID ==
[2018-08-17 09:09] VITALS: BMI 26.6
[2018-08-17] MEDS ORDERED: Cefepime IV 2 gm in Dextrose 2 GM/100 ML BAG IVPB STA (09:29)
[2018-08-17] MEDS ORDERED: Amiodarone 150mg/3 ml vial ONE (09:48)
--- NOTE | 2018-08-17 09:48 | C.PDOC ---
History Of Present Illness History of present illness is limited due to patients clinical condition. History per family and patient. 63 y/o female brought in by family for new onset of fever, chills, SOB, and pleuritic pain since last night. Patient has a history of COPD and is intermittently on home O2 2L. Denies any other associated symptoms. LIMITED DUE TO CLIN COND, HX PER FAMILY AND PT NEW ONSET FEVER, CHILLS, SOB, PLEURITIC PAIN SINCE LAST NIGHT. HO COPD, INTERMIT HOME O2 2L. ROS UTO EXAM MOD DIST HEENT NEG LUNGS TACHYPNEA, RETRACTIONS B/L EXP WHEEZE SPEAKING SHORT SENTENCES CV RRR TACHY NO EDEMA HOT, DRY REMAINDER NEG MDM ECHO REPORT 2016 REVIEWED. DEFER IV BOLUS PER SEPSIS PROTOCOL DUE TO FINDINGS PRIOR ECHO. NEBS, O2, ABX Time Seen by Provider: 08/17/18 09:28 Chief Complaint (Nursing): Shortness Of Breath History Per: Patient, Family History/Exam Limitations: clinical condition Onset/Duration Of Symptoms: Days Current Symptoms Are (Timing): Still Present Past Medical History Reviewed: Historical Data, Nursing Documentation, Vital Signs Vital Signs: Last Vital Signs Temp 103.1 F H 08/17/18 09:16 Pulse 145 H 08/17/18 09:16 Resp 22 08/17/18 09:16 BP 159/99 H 08/17/18 09:16 Pulse Ox 84 L 08/17/18 09:16 - Medical History PMH: Anxiety, Arthritis, Asthma, COPD, Depression, Diabetes, Emphysema, HTN Surgical History: Family History: States: No Known Family Hx - Social History Hx Tobacco Use: Yes Hx Alcohol Use: No Hx Substance Use: No - Immunization History Hx Tetanus Toxoid Vaccination: No Hx Influenza Vaccination: No (Allergic to Eggs) Hx Pneumococcal Vaccination: No (Allergic to Eggs) Review Of Systems Review Of Systems: ROS cannot be obtained secondary to pt's inabilty to answer questions. Physical Exam - Physical Exam Appears: Non-toxic, In Acute Distress (in moderate distress) Skin: Dry, Other (Hot) Head: Atraumatic, Normacephalic Eye(s): bilateral: Normal Inspection Ear(s): Bilateral: Normal Oral Mucosa: Moist Throat: Normal, No Erythema, No Exudate, Other (uvula midline) Neck: Supple Chest: Symmetrical Cardiovascular: Rhythm Regular (tachycardic), No Murmur Respiratory: Wheezing (expiratory wheezing bilaterally), Other (tachypnea; retractions) Gastrointestinal/Abdominal: Soft, No Tenderness Extremity: No Pedal Edema Extremity: Bilateral: Normal ROM Neurological/Psych: Oriented x3, Other (Speaking short sentences) ED Course And Treatment - Laboratory Results Result Diagrams: 08/17/18 09:54 08/17/18 10:37 ECG: Interpreted By Ct ECG Rhythm: L BBB Interpretation Of ECG: OLD EKG 12/2017 +LBBB Rate From EC O2 Sat by Pulse Oximetry: 84 (RA) Pulse Ox Interpretation: Abnormal - Radiology CXR: Interpreted by Me CXR Interpretation: Yes: No Acute Disease - Other Rad CXR X-Ray: Read By Radiologist Interpretation: FINDINGS: LUNGS: The lungs are well inflated and clear. PLEURA: No pleural effusions or pneumothorax. CARDIOVASCULAR: The heart is normal in size. There are aortic atherosclerotic calcifications present. OSSEOUS STRUCTURES: Within normal limits for the patient's age. VISUALIZED UPPER ABDOMEN: Normal. OTHER FINDINGS: None. IMPRESSION: No active pulmonary disease. Progress - Data Reviewed Data Reviewed: Lab, Diagnostic imaging, EKG, Old records - Critical Care Citical Care: Excluding Proc Time Critical Care Time: 90 minutes Medical Decision Making Medical Decision Making: Plan: --VBG --Bloodwork --Chest XR --UA --Maxipime IV --Duoneb --Solumedrol IV --IV fluids --Tamiflu PO --Tylenol PO Disposition Counseled Patient/Family Regarding: Studies Performed, Diagnosis - Disposition Disposition: HOSPITALIZED Disposition Time: 11:13 Condition: STABLE - POA Present On Arrival: None, Poor Glycemic Control - Clinical Impression Clinical Impression: COPD exacerbation, Influenza-like illness, Hypoxia - Scribe Statement The provider has reviewed the documentation as recorded by the Dianne Hathaway Provider Attestation: All medical record entries made by the Dianne were at my direction and personally dictated by me. I have reviewed the chart and agree that the record accurately reflects my personal performance of the history, physical exam, medical decision making, and the department course for this patient. I have also personally directed, reviewed, and agree with the discharge instructions and disposition.
[2018-08-17] MEDS ORDERED: MethylPREDNISolone 40 mg Vial IVP STA (09:53)
[2018-08-17] MEDS ORDERED: Sodium Chloride 0.9% 1,000 ML ONE ×2 (09:54→10:03)
[2018-08-17 09:59] LABS: BASO # 0.1 K/uL (0.0-0.2); BASO % 0.4 % (0.0-2.0); EOS # 0.1 K/uL (0.0-0.7); EOS % 0.5 % (0.0-4.0); HEMOGLOBIN 16.5 g/dL (11.0-16.0); LYMPH # 3.2 K/uL (1.0-4.3); LYMPH % 17.2 % (20.0-40.0); MEAN CELL VOLUME 92.5 fL (81.0-99.0); MEAN CORPUSCULAR HEMOGLOBIN 30.4 pg (27.0-31.0); MEAN CORPUSCULAR HGB CONC 32.9 g/dL (33.0-37.0); MEAN PLATELET VOLUME 8.5 fL (7.2-11.7); MONO # 2.2 K/uL (0.0-0.8); MONO % 12.1 % (0.0-10.0); NEUT # 12.8 K/uL (1.8-7.0); NEUT % 69.8 % (50.0-75.0); NRBC % 0.1 % (0.0-2.0); RBC 5.41 Mil/uL (3.80-5.20); RED CELL DISTRIBUTION WIDTH 17.2 % (11.5-14.5); WHITE BLOOD COUNT 18.3 K/uL (4.8-10.8)
[2018-08-17] MEDS: Albuterol-Ipratrop 3 mg / 0.5 (3 ml) UD IH SCH ×3 (10:00→10:20)
[2018-08-17] MEDS ORDERED: MethylPREDNISolone 40 mg Vial ONE ×2 (10:03→17:29)
[2018-08-17] MEDS ORDERED: Sodium Chloride 0.9% 100 ML ONE (10:03)
[2018-08-17 10:05] LABS: VENOUS BLOOD GAS PCO2 70 mmHg (40-60); VENOUS BLOOD GAS PO2 20 mm/Hg (30-55); VENOUS BLOOD PH 7.39 (7.32-7.43)
[2018-08-17] MEDS ORDERED: Albuterol-Ipratrop 3 mg / 0.5 (3 ml) UD ONE ×3 (10:10→19:47)
[2018-08-17 10:59] LABS: ALB/GLOB RATIO 1.3 (1.0-2.1); ALBUMIN 4.1 g/dL (3.5-5.0); ALT/SGPT 23 U/L (9-52); AST/SGOT 21 U/L (14-36); BLOOD UREA NITROGEN 11 mg/dL (7-17); CALCIUM 8.4 mg/dl (8.6-10.4); GFR NON-AFRICAN AMERICAN > 60
[2018-08-17 11:08] LABS: B-TYPE NATRIURETIC PEPTIDE 652 pg/mL (0-900)
[2018-08-17] MEDS ORDERED: Magnesium Sulfate 1 gm in D5W 1 GM/100 ML BAG IVPB STA (11:12)
[2018-08-17] MEDS ORDERED: Magnesium Sulfate 1 gm in D5W 1 GM/100 ML BAG IVPB ONE (11:19)
[2018-08-17 11:20] LABS: SQUAMOUS EPITHIAL 7 /hpf (0-5); URINE BACTERIA RARE (<OCC); URINE BILIRUBIN NEGATIVE (NEGATIVE); URINE BLOOD NEGATIVE (NEGATIVE); URINE CLARITY Clear (Clear); URINE COLOR Yellow (YELLOW); URINE GLUCOSE (UA) NORMAL (Normal); URINE LEUKOCYTE ESTERASE TRACE Leu/uL (Negative); URINE PROTEIN 2+ mg/dL (NEGATIVE); URINE UROBILINOGEN NORMAL mg/dL (0.2-1.0)
[2018-08-17] MEDS ORDERED: Glucagon Recombinant 1 mg Inj IM PRN (12:58)
[2018-08-17] MEDS ORDERED: Dextrose 50% SYRINGE Inj (50 ml) IV PRN (12:58)
[2018-08-17 13:32] LABS: VENOUS BLOOD GAS PCO2 57 mmHg (40-60); VENOUS BLOOD GAS PO2 55 mm/Hg (30-55); VENOUS BLOOD PH 7.37 (7.32-7.43)
[2018-08-17] MEDS: ceFAZolin IV 1 gm in Dextrose 1 GM/50 ML BAG IVPB SCH ×2 (13:51→22:08)
--- NOTE | 2018-08-17 14:29 | RAD ---
Date of service: 08/17/2018 HISTORY: Sepsis Patient COMPARISON: 12/26/2017. FINDINGS: LUNGS: The lungs are well inflated and clear. PLEURA: No pleural effusions or pneumothorax. CARDIOVASCULAR: The heart is normal in size. There are aortic atherosclerotic calcifications present. OSSEOUS STRUCTURES: Within normal limits for the patient's age. VISUALIZED UPPER ABDOMEN: Normal. OTHER FINDINGS: None. IMPRESSION: No active pulmonary disease.
[2018-08-17] MEDS: Albuterol-Ipratrop 3 mg / 0.5 (3 ml) UD INH SCH ×2 (15:03→19:49)
[2018-08-17] MEDS: (Novolog) Insulin Aspart, Recombinant 100 u/ml 10 ml vial SC SCH ×2 (16:22→22:31)
[2018-08-17] MEDS ORDERED: (Novolog) Insulin Aspart, Recombinant 100 u/ml 10 ml vial ONE (16:24)
--- NOTE | 2018-08-17 16:29 | CP.PCM.CON ---
History of Present Illness - History of Present Illness History of Present Illness: reason for consultation: cough productive of yellowish phlegm and shortness of breath 63-year-old female with history of smoking, asthma/COPD presented to emergency room with productive cough or shortness of breath, fever chills since yesterday. Chest x-ray done showed no infiltrate. Review of Systems - Review of Systems All systems: reviewed and no additional remarkable complaints except (productive cough and shortness of breath) Past Patient History - Infectious Disease Hx of Infectious Diseases: None - Past Medical History & Family History Past Medical History?: Yes - Past Social History Smoking Status: Light Smoker < 10 Cigarettes Daily - CARDIAC Hx Hypertension: Yes - PULMONARY Hx Asthma: Yes Hx Chronic Obstructive Pulmonary Disease (COPD): Yes Hx Emphysema: Yes - ENDOCRINE/METABOLIC Hx Diabetes Mellitus Type 2: Yes - MUSCULOSKELETAL/RHEUMATOLOGICAL Hx Arthritis: Yes - PSYCHIATRIC Hx Anxiety: Yes Hx Depression: Yes Hx Substance Use: No - SURGICAL HISTORY Hx Section: Yes - ANESTHESIA Hx Anesthesia: Yes Hx Anesthesia Reactions: No Meds Allergies/Adverse Reactions: Allergies Allergy/AdvReac Type Severity Reaction Status Date / Time aspirin Allergy VOMITING Verified 06/14/16 12:03 EGG Allergy RASH Verified 12/26/17 19:28 - Medications Medications: Current Medications Acetaminophen (Tylenol 325mg Tab) 975 mg PO ONCE PRN PRN Reason: Fever >100.4 F Last Admin: 08/17/18 09:27 Dose: 975 mg Acetaminophen (Tylenol 325mg Tab) 650 mg PO Q6 PRN PRN Reason: Fever >100.4 F Albuterol/Ipratropium (Duoneb 3 Mg/0.5 Mg (3 Ml) Ud) 3 ml INH RQ6 [facility] Last Admin: 08/17/18 15:03 Dose: 3 ml Dextrose (Dextrose 50% Inj) 0 ml IV STAT PRN; Protocol PRN Reason: Hypoglycemia Protocol Dextrose (Glutose 15) 0 gm PO ONCE PRN; Protocol PRN Reason: Hypoglycemia Protocol Enoxaparin Sodium (Lovenox) 40 mg SC DAILY [facility] Glucagon (Glucagen Diagnostic Kit) 0 mg IM STAT PRN; Protocol PRN Reason: Hypoglycemia Protocol Sodium Chloride (Sodium Chloride 0.9%) 2,100 mls @ 200 mls/hr IV .[id number] [facility] Last Admin: 08/17/18 09:52 Dose: 200 mls/hr Cefazolin Sodium/Dextrose (Ancef Iv 1 Gm Duplex) 1 gm in 50 mls @ 100 mls/hr IVPB Q8H [facility]; Protocol Last Admin: 08/17/18 13:51 Dose: 100 mls/hr Dextrose (Dextrose 5% In Water 1000 Ml) 1,000 mls @ 0 mls/hr IV .Q0M PRN; Protocol PRN Reason: Hypoglycemia Protocol Insulin Aspart (Novolog) 0 unit SC ACHS [facility]; Protocol Last Admin: 08/17/18 16:22 Dose: 4 unit Metformin HCl (Glucophage) 500 mg PO DAILY [facility] Methylprednisolone (Solu-Medrol) 60 mg IVP Q6 [facility] Pantoprazole Sodium (Protonix Inj) 40 mg IVP DAILY [facility] Last Admin: 08/17/18 13:40 Dose: 40 mg Risperidone (Risperdal Tab) 3 mg PO DAILY [facility] Rosuvastatin Calcium (Crestor) 5 mg PO HS [facility] Physical Exam - Head Exam Head Exam: ATRAUMATIC, NORMOCEPHALIC - ENT Exam ENT Exam: Mucous Membranes Moist - Neck Exam Neck exam: Positive for: Normal Inspection - Respiratory Exam Respiratory Exam: Rhonchi, Wheezes - Cardiovascular Exam Cardiovascular Exam: REGULAR RHYTHM - GI/Abdominal Exam GI & Abdominal Exam: Normal Bowel Sounds, Soft - Extremities Exam Extremities exam: Positive for: normal inspection Results - Vital Signs Recent Vital Signs: Last Vital Signs Temp 98.8 F 08/17/18 14:14 Pulse 90 08/17/18 16:20 Resp 15 08/17/18 16:20 BP 135/67 08/17/18 16:20 Pulse Ox 94 L 08/17/18 16:20 - Labs Result Diagrams: 08/17/18 09:54 08/17/18 10:37 Labs: Laboratory Results - last 24 hr 08/17/18 08/17/18 08/17/18 09:40 09:54 09:54 WBC 18.3 H D RBC 5.41 H Hgb 16.5 H D Hct 50.0 H MCV 92.5 D MCH 30.4 MCHC 32.9 L RDW 17.2 H Plt Count 388 MPV 8.5 Neut % (Auto) 69.8 Lymph % (Auto) 17.2 L [place] % (Auto) 12.1 H Eos % (Auto) 0.5 Baso % (Auto) 0.4 Neut # (Auto) 12.8 H Lymph # (Auto) 3.2 [place] # (Auto) 2.2 H Eos # (Auto) 0.1 Baso # (Auto) 0.1 PT 11.0 INR 1.0 APTT 22 pO2 VBG pH VBG pCO2 VBG HCO3 VBG Total CO2 VBG O2 Sat (Calc) VBG Base Excess VBG Potassium Sodium Chloride Glucose Lactate Liter Flow Crit Value Called To Crit Value Called By Crit Value Read Back Blood Gas Notified Time Potassium Carbon Dioxide Anion Gap BUN Creatinine Est GFR ( Amer) Est GFR (Non-Af Amer) POC Glucose (mg/dL) 122 H Random Glucose Calcium Phosphorus Magnesium Total Bilirubin AST ALT Alkaline Phosphatase Troponin I NT-Pro-B Natriuret Pep Total Protein Albumin Globulin Albumin/Globulin Ratio Venous Blood Potassium Urine Color Urine Clarity Urine pH Ur Specific [place] Urine Protein Urine Glucose (UA) Urine Ketones Urine Blood Urine Nitrate Urine Bilirubin Urine Urobilinogen Ur Leukocyte Esterase Urine WBC (Auto) Urine RBC (Auto) Ur Squamous Epith Cells Urine Bacteria Influenza Typ A,B (EIA) 08/17/18 08/17/18 08/17/18 09:54 09:58 10:37 WBC RBC Hgb Hct MCV MCH MCHC RDW Plt Count MPV Neut % (Auto) Lymph % (Auto) [place] % (Auto) Eos % (Auto) Baso % (Auto) Neut # (Auto) Lymph # (Auto) [place] # (Auto) Eos # (Auto) Baso # (Auto) PT INR APTT pO2 20 L VBG pH 7.39 VBG pCO2 70 H* VBG HCO3 34.1 VBG Total CO2 44.5 H VBG O2 Sat (Calc) 35.2 L VBG Base Excess 14.0 H VBG Potassium 4.5 Sodium 139.0 132 Chloride 95.0 L 95 L Glucose 89 Lactate 1.8 Liter Flow Crit Value Called To Dr lewis Crit Value Called By Brian valdez computed tomography technologist Crit Value Read Back Y Blood Gas Notified Time 1005 Potassium 3.7 Carbon Dioxide 33 H Anion Gap 8 L BUN 11 Creatinine 0.6 L Est GFR ( Amer) > 60 Est GFR (Non-Af Amer) > 60 POC Glucose (mg/dL) Random Glucose 143 H D Calcium 8.4 L Phosphorus 3.7 Magnesium 1.2 L Total Bilirubin 0.6 AST 21 ALT 23 Alkaline Phosphatase 108 Troponin I 0.0290 NT-Pro-B Natriuret Pep 652 Total Protein 7.3 Albumin 4.1 Globulin 3.2 Albumin/Globulin Ratio 1.3 Venous Blood Potassium 4.5 Urine Color Urine Clarity Urine pH Ur Specific [place] Urine Protein Urine Glucose (UA) Urine Ketones Urine Blood Urine Nitrate Urine Bilirubin Urine Urobilinogen Ur Leukocyte Esterase Urine WBC (Auto) Urine RBC (Auto) Ur Squamous Epith Cells Urine Bacteria Influenza Typ A,B (EIA) Negative for flu a/b 08/17/18 08/17/18 08/17/18 11:00 13:14 13:28 WBC RBC Hgb Hct MCV MCH MCHC RDW Plt Count MPV Neut % (Auto) Lymph % (Auto) [place] % (Auto) Eos % (Auto) Baso % (Auto) Neut # (Auto) Lymph # (Auto) [place] # (Auto) Eos # (Auto) Baso # (Auto) PT INR APTT pO2 55 VBG pH 7.37 VBG pCO2 57 VBG HCO3 29.3 VBG Total CO2 34.7 H VBG O2 Sat (Calc) 91.0 H VBG Base Excess 6.0 H VBG Potassium 3.7 Sodium 136.0 Chloride 98.0 Glucose 172 H Lactate 0.9 Liter Flow 2.0 Crit Value Called To Crit Value Called By Crit Value Read Back Blood Gas Notified Time Potassium Carbon Dioxide Anion Gap BUN Creatinine Est GFR ( Amer) Est GFR (Non-Af Amer) POC Glucose (mg/dL) 191 H Random Glucose Calcium Phosphorus Magnesium Total Bilirubin AST ALT Alkaline Phosphatase Troponin I NT-Pro-B Natriuret Pep Total Protein Albumin Globulin Albumin/Globulin Ratio Venous Blood Potassium 3.7 Urine Color Yellow Urine Clarity Clear Urine pH 6.0 Ur Specific [place] 1.014 Urine Protein 2+ H Urine Glucose (UA) Normal Urine Ketones Negative Urine Blood Negative Urine Nitrate Negative Urine Bilirubin Negative Urine Urobilinogen Normal Ur Leukocyte Esterase Trace Urine WBC (Auto) 6 H Urine RBC (Auto) 4 H Ur Squamous Epith Cells 7 H Urine Bacteria Rare Influenza Typ A,B (EIA) 08/17/18 16:17 WBC RBC Hgb Hct MCV MCH MCHC RDW Plt Count MPV Neut % (Auto) Lymph % (Auto) [place] % (Auto) Eos % (Auto) Baso % (Auto) Neut # (Auto) Lymph # (Auto) [place] # (Auto) Eos # (Auto) Baso # (Auto) PT INR APTT pO2 VBG pH VBG pCO2 VBG HCO3 VBG Total CO2 VBG O2 Sat (Calc) VBG Base Excess VBG Potassium Sodium Chloride Glucose Lactate Liter Flow Crit Value Called To Crit Value Called By Crit Value Read Back Blood Gas Notified Time Potassium Carbon Dioxide Anion Gap BUN Creatinine Est GFR ( Amer) Est GFR (Non-Af Amer) POC Glucose (mg/dL) 274 H Random Glucose Calcium Phosphorus Magnesium Total Bilirubin AST ALT Alkaline Phosphatase Troponin I NT-Pro-B Natriuret Pep Total Protein Albumin Globulin Albumin/Globulin Ratio Venous Blood Potassium Urine Color Urine Clarity Urine pH Ur Specific [place] Urine Protein Urine Glucose (UA) Urine Ketones Urine Blood Urine Nitrate Urine Bilirubin Urine Urobilinogen Ur Leukocyte Esterase Urine WBC (Auto) Urine RBC (Auto) Ur Squamous Epith Cells Urine Bacteria Influenza Typ A,B (EIA) Assessment & Plan (1) COPD exacerbation Status: Acute Comment: elevated white count. Productive cough. IV antibiotics. IV steroids and nebulizer treatment. Patient advised to quit smoking. Sputum for culture and sensitivity
[2018-08-17] MEDS ORDERED: Enoxaparin 40 mg Syringe ONE (17:29)
[2018-08-17] MEDS: Enoxaparin 40 mg Syringe SC SCH (17:30)
[2018-08-17] MEDS: MethylPREDNISolone 40 mg Vial IVP SCH (17:30)
[2018-08-18] MEDS: MethylPREDNISolone 40 mg Vial IVP SCH ×5 (00:14→23:35)
[2018-08-18] MEDS: Albuterol-Ipratrop 3 mg / 0.5 (3 ml) UD INH SCH ×4 (01:21→19:34)
[2018-08-18] MEDS: ceFAZolin IV 1 gm in Dextrose 1 GM/50 ML BAG IVPB SCH ×3 (05:52→23:37)
[2018-08-18] MEDS: (Novolog) Insulin Aspart, Recombinant 100 u/ml 10 ml vial SC SCH ×3 (07:56→17:33)
[2018-08-18] MEDS: Enoxaparin 40 mg Syringe SC SCH (09:12)
--- NOTE | 2018-08-18 21:33 | CP.PCM.PN ---
Subjective - Date & Time of Evaluation Date of Evaluation: 08/18/18 Time of Evaluation: 21:33 - Subjective Subjective: Pulmonary Folow up, Covering Dr Romo The Patient was seen and examined at the bedside, Medical records reviewed, and management issues were discussed and formulated with the house staff. Events reviewed 63-year-old female with history of smoking, asthma/COPD Who presented to emergency room with productive cough or shortness of breath, fever chills since yesterday. Chest x-ray done showed no infiltrate. Feelig slightly better, Breathing and cough improved Awake, comfortable, in no distress Afebrile No fever/chills No chhest pain Objective - Vital Signs/Intake and Output Vital Signs (last 24 hours): Temp Pulse Resp BP Pulse Ox 98.8 F 110 H 18 120/68 98 08/18/18 18:29 08/18/18 18:29 08/18/18 18:29 08/18/18 18:29 08/18/18 18:29 - Medications Medications: Current Medications Acetaminophen (Tylenol 325mg Tab) 975 mg PO ONCE PRN PRN Reason: Fever >100.4 F Last Admin: 08/17/18 22:14 Dose: 975 mg Acetaminophen (Tylenol 325mg Tab) 650 mg PO Q6 PRN PRN Reason: Fever >100.4 F Last Admin: 08/18/18 13:45 Dose: 650 mg Albuterol/Ipratropium (Duoneb 3 Mg/0.5 Mg (3 Ml) Ud) 3 ml INH RQ6 [facility] Last Admin: 08/18/18 19:34 Dose: 3 ml Dextrose (Dextrose 50% Inj) 0 ml IV STAT PRN; Protocol PRN Reason: Hypoglycemia Protocol Dextrose (Glutose 15) 0 gm PO ONCE PRN; Protocol PRN Reason: Hypoglycemia Protocol Enoxaparin Sodium (Lovenox) 40 mg SC DAILY [facility] Last Admin: 08/18/18 09:12 Dose: 40 mg Glucagon (Glucagen Diagnostic Kit) 0 mg IM STAT PRN; Protocol PRN Reason: Hypoglycemia Protocol Guaifenesin/Codeine Phosphate (Guaifenesin/Codeine) 10 ml PO Q6 PRN PRN Reason: Cough and congestion Sodium Chloride (Sodium Chloride 0.9%) 2,100 mls @ 200 mls/hr IV .[id number] [facility] Last Admin: 08/18/18 18:09 Dose: Not Given Cefazolin Sodium/Dextrose (Ancef Iv 1 Gm Duplex) 1 gm in 50 mls @ 100 mls/hr IVPB Q8H [facility]; Protocol Last Admin: 08/18/18 13:30 Dose: 100 mls/hr Dextrose (Dextrose 5% In Water 1000 Ml) 1,000 mls @ 0 mls/hr IV .Q0M PRN; Protocol PRN Reason: Hypoglycemia Protocol Insulin Aspart (Novolog) 0 unit SC ACHS [facility]; Protocol Last Admin: 08/18/18 17:33 Dose: 2 unit Metformin HCl (Glucophage) 500 mg PO DAILY [facility] Last Admin: 08/18/18 09:46 Dose: 500 mg Methylprednisolone (Solu-Medrol) 60 mg IVP Q6 [facility] Last Admin: 08/18/18 17:34 Dose: 60 mg Pantoprazole Sodium (Protonix Inj) 40 mg IVP DAILY [facility] Last Admin: 08/18/18 09:13 Dose: 40 mg Risperidone (Risperdal Tab) 3 mg PO DAILY [facility] Last Admin: 08/18/18 09:13 Dose: 3 mg Rosuvastatin Calcium (Crestor) 5 mg PO HS [facility] Last Admin: 08/17/18 22:09 Dose: 5 mg - Labs Labs: 08/17/18 09:54 08/17/18 10:37 PT 11.0 SECONDS (9.7-12.2) 08/17/18 09:54 INR 1.0 08/17/18 09:54 APTT 22 SECONDS (21-34) 08/17/18 09:54 - Constitutional Appears: Well, Non-toxic - Head Exam Head Exam: ATRAUMATIC, NORMAL INSPECTION - Eye Exam Eye Exam: Normal appearance. absent: Conjunctival injection, EOMI - Neck Exam Neck Exam: Full ROM - Respiratory Exam Respiratory Exam: Decreased Breath Sounds, Rhonchi. absent: Accessory Muscle Use, Chest Wall Tenderness, Clear to Ausculation Bilateral - Cardiovascular Exam Cardiovascular Exam: REGULAR RHYTHM, +S1, +S2. absent: Murmur - GI/Abdominal Exam GI & Abdominal Exam: Soft, Normal Bowel Sounds. absent: Tenderness Assessment and Plan (1) COPD exacerbation Assessment & Plan: Continue IV antibiotics and IV steroids Continue nebulizer treatment. Use supplemental O2 with caution to avoid CO2 retention Cough syrup with guiafenesin Status: Acute (2) Hypoxia Status: Acute (3) Influenza-like illness Status: Acute (4) Asthma Status: Acute (5) Bronchitis Status: Acute
--- NOTE | 2018-08-18 22:22 | CP.PCM.HP ---
Past Patient History - Infectious Disease Hx of Infectious Diseases: None - Past Medical History & Family History Past Medical History?: Yes - Past Social History Smoking Status: Current Some Days Smoker - CARDIAC Hx Hypertension: Yes - PULMONARY Hx Chronic Obstructive Pulmonary Disease (COPD): Yes - NEUROLOGICAL Hx Neurological Disorder: No - HEENT Hx HEENT Problems: No - RENAL Hx Chronic Kidney Disease: No - ENDOCRINE/METABOLIC Hx Diabetes Mellitus Type 2: Yes - HEMATOLOGICAL/ONCOLOGICAL Hx Blood Disorders: No - INTEGUMENTARY Hx Dermatological Problems: No - MUSCULOSKELETAL/RHEUMATOLOGICAL Hx Arthritis: Yes - GASTROINTESTINAL Hx Gastrointestinal Disorders: No - GENITOURINARY/GYNECOLOGICAL Hx Genitourinary Disorders: No - PSYCHIATRIC Hx Anxiety: Yes Hx Depression: Yes Hx Substance Use: No - SURGICAL HISTORY Hx Section: Yes - ANESTHESIA Hx Anesthesia: Yes Hx Anesthesia Reactions: No Meds Allergies/Adverse Reactions: Allergies Allergy/AdvReac Type Severity Reaction Status Date / Time aspirin Allergy VOMITING Verified 06/14/16 12:03 EGG Allergy RASH Verified 12/26/17 19:28 Results - Vital Signs Recent Vital Signs: Last Vital Signs Temp 98.8 F 08/18/18 18:29 Pulse 110 H 08/18/18 18:29 Resp 18 08/18/18 18:29 BP 120/68 08/18/18 18:29 Pulse Ox 98 08/18/18 18:29 - Labs Result Diagrams: 08/17/18 09:54 08/17/18 10:37 Labs: Laboratory Results - last 24 hr 08/18/18 08/18/18 08/18/18 06:41 11:45 16:35 POC Glucose (mg/dL) 163 H 149 H 188 H 08/18/18 21:22 POC Glucose (mg/dL) 180 H
[2018-08-18] MEDS: guaiFENesin-Codeine 100-10mg/5ml Syrup (10ml) UD PO PRN (23:34)
[2018-08-19] MEDS: (Novolog) Insulin Aspart, Recombinant 100 u/ml 10 ml vial SC SCH ×5 (00:10→21:35)
[2018-08-19] MEDS: Albuterol-Ipratrop 3 mg / 0.5 (3 ml) UD INH SCH ×4 (01:33→19:25)
[2018-08-19 01:40] VITALS: RESP 20
[2018-08-19] MEDS: MethylPREDNISolone 40 mg Vial IVP SCH ×3 (06:22→17:15)
[2018-08-19] MEDS: ceFAZolin IV 1 gm in Dextrose 1 GM/50 ML BAG IVPB SCH ×3 (06:26→21:27)
[2018-08-19] MEDS: guaiFENesin-Codeine 100-10mg/5ml Syrup (10ml) UD PO PRN ×2 (08:25→21:34)
--- NOTE | 2018-08-19 08:49 | HP ---
CHIEF COMPLAINT: Shortness of breath. HISTORY OF PRESENT ILLNESS: This is a 63-year-old female well known to me with history of type 2 diabetes, hypertension, anxiety, depression and she has chronic persistent obstructive asthma who is compliant with her diet, medication, and followup for almost one week. She is having cough, congestion, shortness of breath, wheezing, thick yellow sputum production, chill, rigors, no hemoptysis. The patient has chest congestion. She has chest pain upon coughing. She denies any pleuritic chest pain. She denies any nausea, vomiting, diarrhea. She denies any polyuria, polydipsia,or polyphagia. She denies any hematuria or pyuria. She has sneezing, nasal congestion, rhinorrhea. She denies any history of skin rash. She denies history of hip pain, neck pain, leg pain. PAST MEDICAL HISTORY: Bronchial asthma, diabetes, hypertension, anxiety, depression. SOCIAL HISTORY: She is nonsmoker. Non-EtOH user. CURRENT MEDICATIONS: At home, she takes albuterol sulfate via nebulizer, metformin, Risperdal, Pravachol, prednisone. PHYSICAL EXAMINATION GENERAL: An elderly female in moderate respiratory distress. VITAL SIGNS: Blood pressure 120/68, pulse 110, respiratory rate 18, temperature 98.8. SKIN: Flushed. No bruises. No purpura. No petechiae. No ecchymosis. Dry. HEENT: Atraumatic and normocephalic. Negative pallor. Negative jaundice. Extraocular movements are intact. NECK: Supple, using accessory muscles. LUNGS: Bilateral inspiratory and expiratory rhonchi. Decreased air entry. CARDIOVASCULAR SYSTEM: PMI not localized. S1 and S2 regular, tachycardic. ABDOMEN: Soft, nontender. Bowel sounds are positive. RECTAL AND PELVIC: Refused. EXTREMITIES: No clubbing, cyanosis, or edema. CENTRAL NERVOUS SYSTEM: Awake, alert, oriented x3. ASSESSMENT: 1. Acute exacerbation of bronchial asthma. 2. Tracheobronchitis, rule out pneumonia. 3. Hypertension. 4. Type 2 diabetes. PLAN: Admit. Detailed orders written. Seen and examined. Miquel Macias MD
[2018-08-19] MEDS: Enoxaparin 40 mg Syringe SC SCH (10:01)
--- NOTE | 2018-08-19 12:50 | CP.PCM.CON ---
<Donn Brownlee - Last Filed: 08/19/18 17:45> History of Present Illness - History of Present Illness History of Present Illness: 63 year old female with a past medical history of asthma and COPD presents to the hospital for shortness of breath, and productive cough for the past couple of days. The patient reports chest tightness midsternally that radiates to the lateral ribs. Patient admits to shortness of breath increasing when she takes a deep breath in. She denies any other alleviating or modifying factors. Patient denies any abdominal pain, headaches, dizziness, syncopal episodes, nausea, vomiting, or any other complaints. PMD:Dr. Macias Medical hx: asthma, copd Allergies: aspirin, EGG Surgical history:c- section Social history:Light smoker x 10 years. Denies illicit drug use. Review of Systems - Constitutional Constitutional: absent: Anorexia, Chills, Headache, Snoring, Weakness - EENT Eyes: absent: Blurred Vision, Diplopia, Discharge, Loss of Peripheral Vision, Sees Flashes Ears: absent: Ear Discharge, Dizziness Nose/Mouth/Throat: absent: Nasal Congestion, Nose Pain, Bleeding Gums, Dysphagia, Mouth Pain - Cardiovascular Cardiovascular: Chest Pain. absent: Irregular Heart Rhythm, Leg Edema, Leg Ulcers, Lightheadedness, Orthopnea, Palpitations, Pedal Edema, Syncope - Respiratory Respiratory: Cough, Wheezing, Chest Congestion. absent: Dyspnea, Hemoptysis, Excessive Mucous Production - Gastrointestinal Gastrointestinal: absent: Belching, Loose Stools - Genitourinary Genitourinary: absent: Change in Urinary Stream, Pyuria, Freq UTI, Bladder Dis tension - Integumentary Integumentary: absent: Alopecia, Change in Pigmentation, Hirsutism, Photosensitivity, Striae, Swelling - Neurological Neurological: absent: Behavioral Changes, Lack of Coordination, Radicular Pain, Syncope, Tingling Past Patient History - Infectious Disease Hx of Infectious Diseases: None - Past Medical History & Family History Past Medical History?: Yes - Past Social History Smoking Status: Current Some Days Smoker - CARDIAC Hx Hypertension: Yes - PULMONARY Hx Chronic Obstructive Pulmonary Disease (COPD): Yes - NEUROLOGICAL Hx Neurological Disorder: No - HEENT Hx HEENT Problems: No - RENAL Hx Chronic Kidney Disease: No - ENDOCRINE/METABOLIC Hx Diabetes Mellitus Type 2: Yes - HEMATOLOGICAL/ONCOLOGICAL Hx Blood Disorders: No - INTEGUMENTARY Hx Dermatological Problems: No - MUSCULOSKELETAL/RHEUMATOLOGICAL Hx Arthritis: Yes - GASTROINTESTINAL Hx Gastrointestinal Disorders: No - GENITOURINARY/GYNECOLOGICAL Hx Genitourinary Disorders: No - PSYCHIATRIC Hx Anxiety: Yes Hx Depression: Yes Hx Substance Use: No - SURGICAL HISTORY Hx Section: Yes - ANESTHESIA Hx Anesthesia: Yes Hx Anesthesia Reactions: No Meds Allergies/Adverse Reactions: Allergies Allergy/AdvReac Type Severity Reaction Status Date / Time aspirin Allergy VOMITING Verified 06/14/16 12:03 EGG Allergy RASH Verified 12/26/17 19:28 - Medications Medications: Current Medications Acetaminophen (Tylenol 325mg Tab) 975 mg PO ONCE PRN PRN Reason: Fever >100.4 F Last Admin: 08/17/18 22:14 Dose: 975 mg Acetaminophen (Tylenol 325mg Tab) 650 mg PO Q6 PRN PRN Reason: Fever >100.4 F Last Admin: 08/19/18 07:53 Dose: 650 mg Albuterol/Ipratropium (Duoneb 3 Mg/0.5 Mg (3 Ml) Ud) 3 ml INH RQ6 [facility] Last Admin: 08/19/18 07:43 Dose: 3 ml Dextrose (Dextrose 50% Inj) 0 ml IV STAT PRN; Protocol PRN Reason: Hypoglycemia Protocol Dextrose (Glutose 15) 0 gm PO ONCE PRN; Protocol PRN Reason: Hypoglycemia Protocol Enoxaparin Sodium (Lovenox) 40 mg SC DAILY [facility] Last Admin: 08/19/18 10:01 Dose: 40 mg Glucagon (Glucagen Diagnostic Kit) 0 mg IM STAT PRN; Protocol PRN Reason: Hypoglycemia Protocol Guaifenesin/Codeine Phosphate (Guaifenesin/Codeine) 10 ml PO Q6 PRN PRN Reason: Cough and congestion Last Admin: 08/19/18 08:25 Dose: 10 ml Cefazolin Sodium/Dextrose (Ancef Iv 1 Gm Duplex) 1 gm in 50 mls @ 100 mls/hr IVPB Q8H [facility]; Protocol Last Admin: 08/19/18 06:26 Dose: 100 mls/hr Dextrose (Dextrose 5% In Water 1000 Ml) 1,000 mls @ 0 mls/hr IV .Q0M PRN; Protocol PRN Reason: Hypoglycemia Protocol Insulin Aspart (Novolog) 0 unit SC ACHS [facility]; Protocol Last Admin: 08/19/18 08:03 Dose: Not Given Metformin HCl (Glucophage) 500 mg PO DAILY [facility] Last Admin: 08/19/18 10:01 Dose: 500 mg Methylprednisolone (Solu-Medrol) 60 mg IVP Q6 [facility] Last Admin: 08/19/18 06:22 Dose: 60 mg Pantoprazole Sodium (Protonix Inj) 40 mg IVP DAILY [facility] Last Admin: 08/19/18 10:02 Dose: 40 mg Risperidone (Risperdal Tab) 3 mg PO DAILY [facility] Last Admin: 08/19/18 10:08 Dose: 3 mg Rosuvastatin Calcium (Crestor) 5 mg PO HS [facility] Last Admin: 08/18/18 23:34 Dose: 5 mg Physical Exam - Head Exam Head Exam: ATRAUMATIC, NORMAL INSPECTION, NORMOCEPHALIC - Eye Exam Eye Exam: EOMI, Normal appearance, PERRL. absent: Periorbital tenderness Pupil Exam: NORMAL ACCOMODATION, PERRL. absent: Irregular, Unequal - ENT Exam ENT Exam: Mucous Membranes Moist, Normal Oropharynx - Respiratory Exam Respiratory Exam: Rhonchi, Wheezes, NORMAL BREATHING PATTERN. absent: Prolonged Expiratory Phase, Respiratory Distress - Cardiovascular Exam Cardiovascular Exam: REGULAR RHYTHM, +S1, +S2. absent: Tachycardia, Irregular Rhythm, Systolic Murmur - GI/Abdominal Exam GI & Abdominal Exam: Normal Bowel Sounds, Soft. absent: Organomegaly, Tenderness - Back Exam Back exam: NORMAL INSPECTION. absent: CVA tenderness (L), CVA tenderness (R), paraspinal tenderness - Neurological Exam Neurological exam: Alert, CN II-XII Intact, Oriented x3 - Psychiatric Exam Psychiatric exam: Normal Affect, Normal Mood - Skin Skin Exam: Dry, Intact, Normal Color Results - Vital Signs Recent Vital Signs: Last Vital Signs Temp 98.1 F 08/19/18 07:30 Pulse 78 08/19/18 07:30 Resp 20 08/19/18 07:30 BP 148/70 08/19/18 07:30 Pulse Ox 94 L 08/19/18 07:30 - Labs Result Diagrams: 08/19/18 14:14 08/19/18 14:14 Labs: Laboratory Results - last 24 hr 08/18/18 08/18/18 08/19/18 16:35 21:22 06:58 POC Glucose (mg/dL) 188 H 180 H 139 H 08/19/18 11:06 POC Glucose (mg/dL) 176 H Assessment & Plan - Assessment and Plan (Free Text) Assessment: 63 year old female with a past medical history of asthma and copd presents with palpitations. Plan: 1.Palpitations EKG: Sinus tachycardia Cardiology consulted. Help appreciated. Echo taken. Pending final read. Will f/u with results. 2.COPD exacerbation CXR: Negative for active disease Flu negative Pulmonary rec's appreciated. Medications: Duoneb 3ml INH RQ6 PRN Ancef 1gm IVPB Q8H Solu-medrol 60mg IVP Q6 [facility] Guaifenesin/Codeine 10ml PO Q6 PRN 3.Diabetes Glucophage 500mg PO Daily [facility] Hypoglycemic protocol 4. Hypercholesterolemia Crestor 5mg PO HS PPX -Protonix -Lovenox Plan discussed with Attending Dr. Henry. Donn Brownlee, PGY-2 <Lenard Henry - Last Filed: 08/20/18 08:17> Meds - Medications Medications: Current Medications Acetaminophen (Tylenol 325mg Tab) 975 mg PO ONCE PRN PRN Reason: Fever >100.4 F Last Admin: 08/17/18 22:14 Dose: 975 mg Acetaminophen (Tylenol 325mg Tab) 650 mg PO Q6 PRN PRN Reason: Fever >100.4 F Last Admin: 08/20/18 06:34 Dose: 650 mg Albuterol/Ipratropium (Duoneb 3 Mg/0.5 Mg (3 Ml) Ud) 3 ml INH RQ6 [facility] Last Admin: 08/20/18 01:06 Dose: Not Given Clonazepam (Klonopin) 1 mg PO HS [facility] Last Admin: 08/19/18 21:27 Dose: 1 mg Dextrose (Dextrose 50% Inj) 0 ml IV STAT PRN; Protocol PRN Reason: Hypoglycemia Protocol Dextrose (Glutose 15) 0 gm PO ONCE PRN; Protocol PRN Reason: Hypoglycemia Protocol Enoxaparin Sodium (Lovenox) 40 mg SC DAILY [facility] Last Admin: 08/19/18 10:01 Dose: 40 mg Glucagon (Glucagen Diagnostic Kit) 0 mg IM STAT PRN; Protocol PRN Reason: Hypoglycemia Protocol Guaifenesin/Codeine Phosphate (Guaifenesin/Codeine) 10 ml PO Q6 PRN PRN Reason: Cough and congestion Last Admin: 08/19/18 21:34 Dose: 10 ml Cefazolin Sodium/Dextrose (Ancef Iv 1 Gm Duplex) 1 gm in 50 mls @ 100 mls/hr IVPB Q8H [facility]; Protocol Last Admin: 08/20/18 06:38 Dose: 100 mls/hr Dextrose (Dextrose 5% In Water 1000 Ml) 1,000 mls @ 0 mls/hr IV .Q0M PRN; Protocol PRN Reason: Hypoglycemia Protocol Insulin Aspart (Novolog) 0 unit SC ACHS [facility]; Protocol Last Admin: 08/19/18 21:35 Dose: Not Given Metformin HCl (Glucophage) 500 mg PO DAILY [facility] Last Admin: 08/19/18 10:01 Dose: 500 mg Methylprednisolone (Solu-Medrol) 60 mg IVP Q6 [facility] Last Admin: 08/20/18 06:38 Dose: 60 mg Pantoprazole Sodium (Protonix Inj) 40 mg IVP DAILY [facility] Last Admin: 08/19/18 10:02 Dose: 40 mg Risperidone (Risperdal Tab) 3 mg PO HS [facility] Rosuvastatin Calcium (Crestor) 5 mg PO HS [facility] Last Admin: 08/19/18 21:27 Dose: 5 mg Results - Vital Signs Recent Vital Signs: Last Vital Signs Temp 97.9 F 08/20/18 07:25 Pulse 65 08/20/18 07:25 Resp 20 08/20/18 07:25 BP 132/74 08/20/18 07:25 Pulse Ox 96 08/20/18 07:25 - Labs Result Diagrams: 08/19/18 14:14 08/19/18 14:14 Labs: Laboratory Results - last 24 hr 08/19/18 08/19/18 08/19/18 11:06 14:14 14:14 WBC 18.1 H RBC 4.60 Hgb 13.7 D Hct 43.2 MCV 94.0 MCH 29.8 MCHC 31.7 L RDW 16.1 H Plt Count 330 MPV 8.2 Neut % (Auto) 91.0 H Lymph % (Auto) 4.1 L [place] % (Auto) 4.6 Eos % (Auto) 0.0 Baso % (Auto) 0.3 Neut # (Auto) 16.5 H Lymph # (Auto) 0.7 L [place] # (Auto) 0.8 Eos # (Auto) 0.0 Baso # (Auto) 0.1 Neutrophils % (Manual) 88 H Band Neutrophils % 3 H Lymphocytes % (Manual) 3 L Monocytes % (Manual) 4 Myelocytes % 2 H Platelet Estimate Normal Sodium 142 Potassium 4.4 Chloride 100 Carbon Dioxide 36 H Anion Gap 10 BUN 15 Creatinine 0.7 Est GFR ( Amer) > 60 Est GFR (Non-Af Amer) > 60 POC Glucose (mg/dL) 176 H Random Glucose 148 H Calcium 8.7 Magnesium 2.0 08/19/18 08/19/18 16:16 21:34 WBC RBC Hgb Hct MCV MCH MCHC RDW Plt Count MPV Neut % (Auto) Lymph % (Auto) [place] % (Auto) Eos % (Auto) Baso % (Auto) Neut # (Auto) Lymph # (Auto) [place] # (Auto) Eos # (Auto) Baso # (Auto) Neutrophils % (Manual) Band Neutrophils % Lymphocytes % (Manual) Monocytes % (Manual) Myelocytes % Platelet Estimate Sodium Potassium Chloride Carbon Dioxide Anion Gap BUN Creatinine Est GFR ( Amer) Est GFR (Non-Af Amer) POC Glucose (mg/dL) 104 212 H Random Glucose Calcium Magnesium Assessment & Plan - Assessment and Plan (Free Text) Plan: Patient seen and evaluated personally by me. Plan of care d/w the resident and as documented
[2018-08-19 14:22] LABS: BASO # 0.1 K/uL (0.0-0.2); BASO % 0.3 % (0.0-2.0); LYMPH # 0.7 K/uL (1.0-4.3); LYMPH % 4.1 % (20.0-40.0); MEAN CORPUSCULAR HEMOGLOBIN 29.8 pg (27.0-31.0); MEAN CORPUSCULAR HGB CONC 31.7 g/dL (33.0-37.0); MEAN PLATELET VOLUME 8.2 fL (7.2-11.7); MONO # 0.8 K/uL (0.0-0.8); MONO % 4.6 % (0.0-10.0); NEUT # 16.5 K/uL (1.8-7.0); PLATELET COUNT 330 K/uL (130-400); RED CELL DISTRIBUTION WIDTH 16.1 % (11.5-14.5); WHITE BLOOD COUNT 18.1 K/uL (4.8-10.8)
[2018-08-19 14:30] LABS: HEMOGLOBIN 13.7 g/dL (11.0-16.0)
[2018-08-19 14:40] LABS: BLOOD UREA NITROGEN 15 mg/dL (7-17); CALCIUM 8.7 mg/dl (8.6-10.4); GFR NON-AFRICAN AMERICAN > 60
--- NOTE | 2018-08-19 14:54 | CARD ---
APPROVED REPORT Date of service: 08/17/2018 EKG Measurement Heart [id number] <Conclusion> Sinus tachycardia Left axis deviation Nonspecific intraventricular block Cannot rule out Septal infarct, age undetermined Abnormal ECG baseline artifacts.please repeat
[2018-08-19 15:10] LABS: BANDS 3 % (0-2); LYMPHOCYTE 3 % (20-40); MONOCYTE 4 % (0-10); MYELOCYTE 2 % (0-0); NEUTROPHIL 88 % (50-75); PLATELET ESTIMATE NORMAL (NORMAL); TOTAL CELLS COUNTED 100
--- NOTE | 2018-08-19 16:39 | CP.PCM.PN ---
Subjective - Date & Time of Evaluation Date of Evaluation: 08/19/18 Time of Evaluation: 09:40 - Subjective Subjective: patient seen and examined Still complaining of cough, wheezing and shortness of breath Objective - Vital Signs/Intake and Output Vital Signs (last 24 hours): Temp Pulse Resp BP Pulse Ox 98.1 F 78 20 148/70 94 L 08/19/18 07:30 08/19/18 07:30 08/19/18 07:30 08/19/18 07:30 08/19/18 07:30 - Medications Medications: Current Medications Acetaminophen (Tylenol 325mg Tab) 975 mg PO ONCE PRN PRN Reason: Fever >100.4 F Last Admin: 08/17/18 22:14 Dose: 975 mg Acetaminophen (Tylenol 325mg Tab) 650 mg PO Q6 PRN PRN Reason: Fever >100.4 F Last Admin: 08/19/18 13:48 Dose: 650 mg Albuterol/Ipratropium (Duoneb 3 Mg/0.5 Mg (3 Ml) Ud) 3 ml INH RQ6 [facility] Last Admin: 08/19/18 13:16 Dose: 3 ml Dextrose (Dextrose 50% Inj) 0 ml IV STAT PRN; Protocol PRN Reason: Hypoglycemia Protocol Dextrose (Glutose 15) 0 gm PO ONCE PRN; Protocol PRN Reason: Hypoglycemia Protocol Enoxaparin Sodium (Lovenox) 40 mg SC DAILY [facility] Last Admin: 08/19/18 10:01 Dose: 40 mg Glucagon (Glucagen Diagnostic Kit) 0 mg IM STAT PRN; Protocol PRN Reason: Hypoglycemia Protocol Guaifenesin/Codeine Phosphate (Guaifenesin/Codeine) 10 ml PO Q6 PRN PRN Reason: Cough and congestion Last Admin: 08/19/18 08:25 Dose: 10 ml Cefazolin Sodium/Dextrose (Ancef Iv 1 Gm Duplex) 1 gm in 50 mls @ 100 mls/hr IVPB Q8H [facility]; Protocol Last Admin: 08/19/18 13:55 Dose: 100 mls/hr Dextrose (Dextrose 5% In Water 1000 Ml) 1,000 mls @ 0 mls/hr IV .Q0M PRN; Protocol PRN Reason: Hypoglycemia Protocol Insulin Aspart (Novolog) 0 unit SC ACHS [facility]; Protocol Last Admin: 08/19/18 13:36 Dose: 2 unit Lorazepam (Ativan) 1 mg PO HS PRN PRN Reason: Insomnia Metformin HCl (Glucophage) 500 mg PO DAILY [facility] Last Admin: 08/19/18 10:01 Dose: 500 mg Methylprednisolone (Solu-Medrol) 60 mg IVP Q6 [facility] Last Admin: 08/19/18 13:16 Dose: 60 mg Pantoprazole Sodium (Protonix Inj) 40 mg IVP DAILY [facility] Last Admin: 08/19/18 10:02 Dose: 40 mg Risperidone (Risperdal Tab) 3 mg PO HS [facility] Rosuvastatin Calcium (Crestor) 5 mg PO HS [facility] Last Admin: 08/18/18 23:34 Dose: 5 mg - Labs Labs: 08/19/18 14:14 08/19/18 14:14 PT 11.0 SECONDS (9.7-12.2) 08/17/18 09:54 INR 1.0 08/17/18 09:54 APTT 22 SECONDS (21-34) 08/17/18 09:54 - Head Exam Head Exam: ATRAUMATIC, NORMOCEPHALIC - ENT Exam ENT Exam: Mucous Membranes Moist - Neck Exam Neck Exam: Normal Inspection - Respiratory Exam Respiratory Exam: Rhonchi, Wheezes - Cardiovascular Exam Cardiovascular Exam: REGULAR RHYTHM - GI/Abdominal Exam GI & Abdominal Exam: Soft, Normal Bowel Sounds - Extremities Exam Extremities Exam: Normal Inspection - Neurological Exam Neurological Exam: Alert, Oriented x3 Assessment and Plan (1) COPD exacerbation Assessment & Plan: continue IV steroids Nebulizer treatment change IV antibiotics Antitussive Status: Acute
--- NOTE | 2018-08-19 22:39 | CP.PCM.PN ---
Subjective - Subjective Subjective: dictated Objective - Vital Signs/Intake and Output Vital Signs (last 24 hours): Temp Pulse Resp BP Pulse Ox 98.1 F 78 20 148/70 94 L 08/19/18 07:30 08/19/18 07:30 08/19/18 07:30 08/19/18 07:30 08/19/18 07:30 - Medications Medications: Current Medications Acetaminophen (Tylenol 325mg Tab) 975 mg PO ONCE PRN PRN Reason: Fever >100.4 F Last Admin: 08/17/18 22:14 Dose: 975 mg Acetaminophen (Tylenol 325mg Tab) 650 mg PO Q6 PRN PRN Reason: Fever >100.4 F Last Admin: 08/19/18 13:48 Dose: 650 mg Albuterol/Ipratropium (Duoneb 3 Mg/0.5 Mg (3 Ml) Ud) 3 ml INH RQ6 [facility] Last Admin: 08/19/18 19:25 Dose: 3 ml Clonazepam (Klonopin) 1 mg PO HS [facility] Last Admin: 08/19/18 21:27 Dose: 1 mg Dextrose (Dextrose 50% Inj) 0 ml IV STAT PRN; Protocol PRN Reason: Hypoglycemia Protocol Dextrose (Glutose 15) 0 gm PO ONCE PRN; Protocol PRN Reason: Hypoglycemia Protocol Enoxaparin Sodium (Lovenox) 40 mg SC DAILY [facility] Last Admin: 08/19/18 10:01 Dose: 40 mg Glucagon (Glucagen Diagnostic Kit) 0 mg IM STAT PRN; Protocol PRN Reason: Hypoglycemia Protocol Guaifenesin/Codeine Phosphate (Guaifenesin/Codeine) 10 ml PO Q6 PRN PRN Reason: Cough and congestion Last Admin: 08/19/18 21:34 Dose: 10 ml Cefazolin Sodium/Dextrose (Ancef Iv 1 Gm Duplex) 1 gm in 50 mls @ 100 mls/hr IVPB Q8H [facility]; Protocol Last Admin: 08/19/18 21:27 Dose: 100 mls/hr Dextrose (Dextrose 5% In Water 1000 Ml) 1,000 mls @ 0 mls/hr IV .Q0M PRN; Protocol PRN Reason: Hypoglycemia Protocol Insulin Aspart (Novolog) 0 unit SC ACHS [facility]; Protocol Last Admin: 08/19/18 21:35 Dose: Not Given Metformin HCl (Glucophage) 500 mg PO DAILY [facility] Last Admin: 08/19/18 10:01 Dose: 500 mg Methylprednisolone (Solu-Medrol) 60 mg IVP Q6 [facility] Last Admin: 08/19/18 17:15 Dose: 60 mg Pantoprazole Sodium (Protonix Inj) 40 mg IVP DAILY [facility] Last Admin: 08/19/18 10:02 Dose: 40 mg Risperidone (Risperdal Tab) 3 mg PO HS [facility] Rosuvastatin Calcium (Crestor) 5 mg PO HS [facility] Last Admin: 08/19/18 21:27 Dose: 5 mg - Labs Labs: 08/19/18 14:14 08/19/18 14:14 PT 11.0 SECONDS (9.7-12.2) 08/17/18 09:54 INR 1.0 08/17/18 09:54 APTT 22 SECONDS (21-34) 08/17/18 09:54
--- NOTE | 2018-08-19 22:52 | CARD ---
APPROVED REPORT Date of service: 08/19/2018 EXAM: Two-dimensional and M-mode echocardiogram with Doppler and color Doppler. INDICATION Dyspnea Chest Pain COPD 2D DIMENSIONS LA [id number] (18-58mL)LVEF (%)50.0 (>50%) M-Mode DIMENSIONS Left Atrium (MM)4.16 (2.5-4.0cm)IVSd1.01 (0.7-1.1cm) Aortic Root2.53 (2.2-3.7cm)LVDd4.58 (4.0-5.6cm) Aortic Cusp Exc.1.67 (1.5-2.0cm)PWd1.15 (0.7-1.1cm) FS (%) 27 %LVDs3.37 (2.0-3.8cm) LVEF (%)52 (>50%) Aortic Valve AoV Peak Oojxxscn143.3cm/Remi Peak GR.12mmHg Mitral Valve MV E Lwepzhzy46.1cm/sMV A Giddgiel577.5cm/sE/A ratio0.8 TDI Lateral E' Peak V8.22cm/sMedial E' Peak V6.61cm/sE/Lateral E'11.4 E/Medial E'14.2 Tricuspid Valve TR Peak Cbrpmqmy706fw/sTR Peak Gr.98myPsUMQK18ghPk LEFT VENTRICLE The left ventricle is normal size. There is normal left ventricular wall thickness. Left ventricle systolic function is low normal. The Ejection Fraction is 50-55%. There is normal LV segmental wall motion. Transmitral Doppler flow pattern is abnormal.Grade I-abnormal relaxation pattern. No left ventricle thrombus noted on this study. RIGHT VENTRICLE The right ventricle is grossly normal size. The right ventricular systolic function is normal. ATRIA The left atrium is borderline dilated. The right atrium size is normal. AORTIC VALVE The aortic valve is mildly sclerotic. The aortic valve is trileaflet. No aortic regurgitation is present. There is no aortic valvular stenosis. There is no aortic valvular vegetation. MITRAL VALVE Mitral annular calcification is mild. There is no evidence of mitral valve prolapse. There is no mitral valve stenosis. Mitral regurgitation is mild. TRICUSPID VALVE The tricuspid valve is normal in structure. There is mild to moderate tricuspid regurgitation. There is no pulmonary hypertension. There is no tricuspid valve prolapse or vegetation. There is no tricuspid valve stenosis. PULMONIC VALVE The pulmonic valve is not well visualized. There is no pulmonic valvular stenosis. GREAT VESSELS The aortic root is normal in size. The IVC is normal in size and collapses >50% with inspiration. PERICARDIAL EFFUSION There is no pericardial effusion. There is no pleural effusion. <Conclusion> The left ventricle is normal size. Left ventricle systolic function is low normal. The Ejection Fraction is 50-55%. Transmitral Doppler flow pattern is abnormal.Grade I-abnormal relaxation pattern. The right ventricle is grossly normal size. The right ventricular systolic function is normal. The left atrium is borderline dilated. The right atrium size is normal. Mitral regurgitation is mild. There is mild to moderate tricuspid regurgitation.
[2018-08-20] MEDS: MethylPREDNISolone 40 mg Vial IVP SCH ×4 (00:05→17:48)
[2018-08-20] MEDS: Albuterol-Ipratrop 3 mg / 0.5 (3 ml) UD INH SCH ×4 (01:06→19:20)
--- NOTE | 2018-08-20 03:08 | PN ---
DATE: 08/19/2018 SUBJECTIVE: Had problem with timing of her Risperdal. The patient has coughing, wheezing. She has thick sputum production, body aches. She denies any nausea, vomiting, diarrhea. She denies any hemoptysis. She denies any joint pain. She has tingling and numbness in the feet. She is anxious. She is depressed. PHYSICAL EXAMINATION: VITAL SIGNS: Blood pressure 148/70, pulse 78, respiratory rate 20, temperature 98.1. LUNGS: Bilateral expiratory rhonchi. Decreased air entry. CARDIOVASCULAR SYSTEM: S1 and S2 regular. ABDOMEN: Soft. ASSESSMENT: 1. Acute exacerbation of bronchial asthma/chronic obstructive pulmonary disease. 2. Tracheobronchitis. 3. Anxiety and depression. 4. Diabetes partly is type 2, partly is . 5. Hypertension. PLAN: Change Risperdal to bedtime, Solu-Medrol, oxygen nebulizer, and monitor the patient. Miquel Macias MD
--- NOTE | 2018-08-20 04:26 | CON ---
DATE: 08/19/2018 PSYCHIATRIC CONSULTATION CHIEF COMPLAINT AND REASON FOR CONSULTATION: The patient is referred by Dr. Macias for evaluation. The patient has history of panic attack and depression. HISTORY OF PRESENT ILLNESS: This is a case of 63-year-old female who was admitted here for new onset of fever, chills, shortness of breath, and pleuritic pain. The patient is admitted for flu-like symptoms and exacerbation of COPD. The patient has history of COPD. The patient is referred for co-management as the patient is complaining of increasing anxiety as well as insomnia for three days and wants her medications. The patient states that she was seeing Dr. Vuong, prescribed him with Dalmane dose unrecalled as well as Ativan 1 mg at bedtime and Risperdal 3 mg daily. She has been compliant with her meds, but the patient seems to be having increasing anxiety due to lack of sleep and also problems with her breathing. The patient states that she wants to take something to sleep at night as well as to control her panic attack and also to help her for depression. She has been compliant with her meds at home as stated. PAST PSYCHIATRIC HISTORY: History of depression and panic attacks. MEDICATIONS: Ativan, Klonopin, Risperdal, and Dalmane. The patient sees Dr. Vuong across the street at [facility]. MEDICAL HISTORY: History of arthritis, asthma, COPD, diabetes, emphysema, hypertension, history of . DRUG AND ALCOHOL HISTORY: The patient denies any use of drug use or alcohol, but is an active smoker. He is still smoking up to a half-a-pack a day. ALLERGIES: HE IS ALLERGIC TO ASPIRIN AND EGG. PSYCHOSOCIAL HISTORY: The patient lives with family. LIST OF CURRENT MEDICATIONS: Includes cephazolin, Crestor, Glucophage, Ativan 1 mg p.o. at bedtime p.r.n., Protonix, and Solu-Medrol 60 mg IV every 6 hours. REVIEW OF SYSTEMS: The patient is seen in her room, anxious, and with her family member. Not in acute respiratory distress, but is stating that she has not slept in three days and asking for sleeping pill. PHYSICAL EXAMINATION: VITAL SIGNS: Temperature 98.1, 78, 148/70, respirations 20, and oxygen saturation 94%. SKIN: No pruritus. HEENT: No headache. No dizziness. NECK: Supple. RESPIRATORY: No dyspnea. CARDIOVASCULAR: No chest pain. GASTROINTESTINAL: She seems to be eating well. EXTREMITIES: The patient is ambulatory. MUSCULOSKELETAL: Feels weak. NEUROLOGIC: Alert and oriented x3. GENITOURINARY: No dysuria. LABORATORY DATA: Review of her labs, the patient's WBC is 18.1 and her creatinine is 0.7. Blood glucose is 148. Hemoglobin and hematocrit are 31.7 and 16.1. UA: The patient is +2 for protein, presence of urine wbc 6, urine rbc 4, and urine squamous epithelial cells 7. The patient is asking to be put back on Risperdal. This is to be given at night for depression and psychosis. Since Srinivas is non formulary, we will try to give her Klonopin which she has tried in the past and discontinue the Ativan p.r.n. MENTAL STATUS EXAMINATION: Elderly female, looks stated age, about 5 feet, weight 152 pounds. Mood is dysphoric, anxious, somatic. Affect is reactive. Speech is spontaneous. Thought process, coherent. Thought content, the patient reports three-day history of insomnia, and she states this is getting anxious and nervous. No psychosis. No suicidal thoughts or ideation. Attention and memory seem to be fair. Insight and judgment impaired. Impulse control is fair. IMPRESSION: 1. History of depression with psychosis as well as panic disorder. 2. History of mood disorder secondary to medical problems as well as history of exacerbation of chronic obstructive pulmonary disease. 3. History of recurrent falls, asthma, left bundle branch block, influenza. PLAN AND RECOMMENDATIONS: The patient is seen. Medications reviewed. We will readjust the patient's medication. For now, we will discontinue the Ativan p.r.n., put her on Klonopin 1 mg at bedtime standing, and the patient may continue the Risperdal 3 mg at bedtime. This is her maintenance dose, 3 mg. We will monitor for mental status accordingly, and then, we will keep the patient on Ambien for now, and she said, it is not working. She has tried trazodone before. So for now, we will just keep the combination of Klonopin for her panic attacks and the Risperdal 3 mg at bedtime for depression and anxiety. Evan Gomez MD [facility] # [id number] MTDSubha
[2018-08-20] MEDS: ceFAZolin IV 1 gm in Dextrose 1 GM/50 ML BAG IVPB SCH ×2 (06:38→13:42)
[2018-08-20] MEDS: (Novolog) Insulin Aspart, Recombinant 100 u/ml 10 ml vial SC SCH ×4 (08:21→21:23)
[2018-08-20] MEDS: guaiFENesin-Codeine 100-10mg/5ml Syrup (10ml) UD PO PRN (08:21)
[2018-08-20] MEDS: Enoxaparin 40 mg Syringe SC SCH (10:48)
--- NOTE | 2018-08-20 13:40 | CP.PCM.PN ---
<Donn Brownlee - Last Filed: 08/20/18 17:04> Subjective - Date & Time of Evaluation Date of Evaluation: 08/20/18 Time of Evaluation: 13:38 - Subjective Subjective: PGY-2 Progress Note: Dr. Henry Service Patient seen and examined at bedside. Per nursing, no acute events occurred overnight .Patient does admit to productive cough with white phlegm. Patient denies any fevers, chills, nausea, vomiting, chest pain, abdominal pain, or any other complaints. Objective - Vital Signs/Intake and Output Vital Signs (last 24 hours): Temp Pulse Resp BP Pulse Ox 97.9 F 65 20 132/74 96 08/20/18 07:25 08/20/18 07:25 08/20/18 07:25 08/20/18 07:25 08/20/18 07:25 Intake and Output: 08/20/18 08/20/18 06:59 18:59 Intake Total 80 Balance 80 - Medications Medications: Current Medications Acetaminophen (Tylenol 325mg Tab) 975 mg PO ONCE PRN PRN Reason: Fever >100.4 F Last Admin: 08/17/18 22:14 Dose: 975 mg Acetaminophen (Tylenol 325mg Tab) 650 mg PO Q6 PRN PRN Reason: Fever >100.4 F Last Admin: 08/20/18 11:28 Dose: 650 mg Albuterol/Ipratropium (Duoneb 3 Mg/0.5 Mg (3 Ml) Ud) 3 ml INH RQ6 [facility] Last Admin: 08/20/18 07:50 Dose: 3 ml Clonazepam (Klonopin) 1 mg PO HS [facility] Last Admin: 08/19/18 21:27 Dose: 1 mg Dextrose (Dextrose 50% Inj) 0 ml IV STAT PRN; Protocol PRN Reason: Hypoglycemia Protocol Dextrose (Glutose 15) 0 gm PO ONCE PRN; Protocol PRN Reason: Hypoglycemia Protocol Enoxaparin Sodium (Lovenox) 40 mg SC DAILY [facility] Last Admin: 08/20/18 10:48 Dose: 40 mg Gabapentin (Neurontin) 100 mg PO TID [facility] Last Admin: 08/20/18 13:33 Dose: 100 mg Glucagon (Glucagen Diagnostic Kit) 0 mg IM STAT PRN; Protocol PRN Reason: Hypoglycemia Protocol Guaifenesin/Codeine Phosphate (Guaifenesin/Codeine) 10 ml PO Q6 PRN PRN Reason: Cough and congestion Last Admin: 08/20/18 08:21 Dose: 10 ml Cefazolin Sodium/Dextrose (Ancef Iv 1 Gm Duplex) 1 gm in 50 mls @ 100 mls/hr IVPB Q8H [facility]; Protocol Last Admin: 08/20/18 06:38 Dose: 100 mls/hr Dextrose (Dextrose 5% In Water 1000 Ml) 1,000 mls @ 0 mls/hr IV .Q0M PRN; Protocol PRN Reason: Hypoglycemia Protocol Insulin Aspart (Novolog) 0 unit SC ACHS [facility]; Protocol Last Admin: 08/20/18 11:30 Dose: 2 unit Metformin HCl (Glucophage) 500 mg PO DAILY [facility] Last Admin: 08/20/18 10:47 Dose: 500 mg Methylprednisolone (Solu-Medrol) 60 mg IVP Q6 [facility] Last Admin: 08/20/18 11:39 Dose: 60 mg Pantoprazole Sodium (Protonix Inj) 40 mg IVP DAILY [facility] Last Admin: 08/20/18 10:47 Dose: 40 mg Risperidone (Risperdal Tab) 3 mg PO HS [facility] Rosuvastatin Calcium (Crestor) 5 mg PO HS [facility] Last Admin: 08/19/18 21:27 Dose: 5 mg Tramadol HCl (Ultram) 50 mg PO Q8 PRN PRN Reason: Pain, severe (8-10) Last Admin: 08/20/18 13:33 Dose: 50 mg - Labs Labs: 08/19/18 14:14 08/19/18 14:14 PT 11.0 SECONDS (9.7-12.2) 08/17/18 09:54 INR 1.0 08/17/18 09:54 APTT 22 SECONDS (21-34) 08/17/18 09:54 - Head Exam Head Exam: ATRAUMATIC, NORMAL INSPECTION - Eye Exam Eye Exam: EOMI, Normal appearance, PERRL Pupil Exam: NORMAL ACCOMODATION, PERRL - ENT Exam ENT Exam: Mucous Membranes Moist, Normal Oropharynx - Respiratory Exam Respiratory Exam: Rhonchi, Wheezes, NORMAL BREATHING PATTERN. absent: Chest Wall Tenderness, Clear to Ausculation Bilateral, Prolonged Expiratory Phase, Respiratory Distress - Cardiovascular Exam Cardiovascular Exam: REGULAR RHYTHM, +S1, +S2 - GI/Abdominal Exam GI & Abdominal Exam: Soft, Normal Bowel Sounds. absent: Hyperactive Bowel Sounds - Extremities Exam Extremities Exam: Full ROM. absent: Joint Swelling, Pedal Edema - Neurological Exam Neurological Exam: Alert, Awake, CN II-XII Intact, Oriented x3 - Psychiatric Exam Psychiatric exam: Normal Affect, Normal Mood - Skin Skin Exam: Dry, Intact Assessment and Plan - Assessment and Plan (Free Text) Assessment: 63 year old female with a past medical history of asthma and copd presents with palpitations. Plan: 1.Palpitations EKG: Sinus tachycardia Cardiology consulted. Help appreciated. Echo :EF 50-55% Grade I abnormal relaxation pattern Mitral regurgitation Tricuspid regurgitation mild to moderate 2.COPD exacerbation CXR: Negative for active disease Flu negative Pulmonary rec's appreciated. Medications: Duoneb 3ml INH RQ6 PRN Ancef 1gm IVPB Q8H Solu-medrol 60mg IVP Q6 [facility] Guaifenesin/Codeine 10ml PO Q6 PRN 3.Diabetes Glucophage 500 mg PO Daily [facility] Hypoglycemic protocol 4. Hypercholesterolemia Crestor 5mg PO HS PPX -Protonix -Lovenox Plan discussed with Attending Dr. Henry. Donn Brownlee, PGY-2 <Lenard Henry - Last Filed: 08/21/18 21:29> Objective - Vital Signs/Intake and Output Vital Signs (last 24 hours): Temp Pulse Resp BP Pulse Ox 98.3 F 70 20 152/79 H 95 08/21/18 07:20 08/21/18 07:20 08/21/18 07:20 08/21/18 07:20 08/21/18 07:20 - Labs Labs: 08/19/18 14:14 08/19/18 14:14 PT 11.0 SECONDS (9.7-12.2) 08/17/18 09:54 INR 1.0 08/17/18 09:54 APTT 22 SECONDS (21-34) 08/17/18 09:54 Assessment and Plan - Assessment and Plan (Free Text) Assessment: Patient examined and evaluated personally by me. Plan of care d/w the site medical director and as documented
--- NOTE | 2018-08-20 16:04 | CP.PCM.PN ---
Subjective - Date & Time of Evaluation Date of Evaluation: 08/20/18 Time of Evaluation: 12:45 - Subjective Subjective: Patient seen and examined at bedside. At this time she feels better as a whole, however she is complaining of SOB that is primarily worse at night. She notes that this SOB feels similar to her episodes of asthma exacerbation. Patient ates that she regularly takes Singulair at home and has not received any since being admitted. States that duonebs have been helping for her COPD-related SOB. She denies any chest pain, fevers, or chills. Exam: General: well-appearing and in no acute distress Heart: RRR, S1, S2 Lungs: Diffuse bilateral wheezes are present Abdomen: Soft, nontender, nondistended Extremities: pulses 2+ and equal throughout, no edema A&P: 1) bronchitis: afebrile, patient appears better overall, will continue abx until regimen completed 2) Asthma: Likely secondary to home-med withdrawal. Will start patient on home Singulair, cont steroids and albuterol Objective - Vital Signs/Intake and Output Vital Signs (last 24 hours): Temp Pulse Resp BP Pulse Ox 97.9 F 65 20 132/74 96 08/20/18 07:25 08/20/18 07:25 08/20/18 07:25 08/20/18 07:25 08/20/18 07:25 Intake and Output: 08/20/18 08/20/18 06:59 18:59 Intake Total 80 Balance 80 - Medications Medications: Current Medications Acetaminophen (Tylenol 325mg Tab) 975 mg PO ONCE PRN PRN Reason: Fever >100.4 F Last Admin: 08/17/18 22:14 Dose: 975 mg Acetaminophen (Tylenol 325mg Tab) 650 mg PO Q6 PRN PRN Reason: Fever >100.4 F Last Admin: 08/20/18 11:28 Dose: 650 mg Albuterol/Ipratropium (Duoneb 3 Mg/0.5 Mg (3 Ml) Ud) 3 ml INH RQ6 [facility] Last Admin: 08/20/18 14:00 Dose: 3 ml Clonazepam (Klonopin) 1 mg PO HS [facility] Last Admin: 08/19/18 21:27 Dose: 1 mg Dextrose (Dextrose 50% Inj) 0 ml IV STAT PRN; Protocol PRN Reason: Hypoglycemia Protocol Dextrose (Glutose 15) 0 gm PO ONCE PRN; Protocol PRN Reason: Hypoglycemia Protocol Enoxaparin Sodium (Lovenox) 40 mg SC DAILY [facility] Last Admin: 08/20/18 10:48 Dose: 40 mg Gabapentin (Neurontin) 100 mg PO TID [facility] Last Admin: 08/20/18 13:33 Dose: 100 mg Glucagon (Glucagen Diagnostic Kit) 0 mg IM STAT PRN; Protocol PRN Reason: Hypoglycemia Protocol Guaifenesin/Codeine Phosphate (Guaifenesin/Codeine) 10 ml PO Q6 PRN PRN Reason: Cough and congestion Last Admin: 08/20/18 08:21 Dose: 10 ml Cefazolin Sodium 1 gm/ Sodium (Chloride) 50 mls @ 100 mls/hr IVPB Q8H [facility]; Protocol Insulin Aspart (Novolog) 0 unit SC ACHS [facility]; Protocol Last Admin: 08/20/18 11:30 Dose: 2 unit Metformin HCl (Glucophage) 500 mg PO DAILY [facility] Last Admin: 08/20/18 10:47 Dose: 500 mg Methylprednisolone (Solu-Medrol) 60 mg IVP Q6 [facility] Last Admin: 08/20/18 11:39 Dose: 60 mg Pantoprazole Sodium (Protonix Inj) 40 mg IVP DAILY [facility] Last Admin: 08/20/18 10:47 Dose: 40 mg Risperidone (Risperdal Tab) 3 mg PO HS [facility] Rosuvastatin Calcium (Crestor) 5 mg PO HS [facility] Last Admin: 08/19/18 21:27 Dose: 5 mg Tramadol HCl (Ultram) 50 mg PO Q8 PRN PRN Reason: Pain, severe (8-10) Last Admin: 08/20/18 13:33 Dose: 50 mg - Labs Labs: 08/19/18 14:14 08/19/18 14:14 PT 11.0 SECONDS (9.7-12.2) 08/17/18 09:54 INR 1.0 08/17/18 09:54 APTT 22 SECONDS (21-34) 08/17/18 09:54 Assessment and Plan (1) COPD exacerbation Status: Acute
[2018-08-20] MEDS: ceFAZolin 1 GM in Sodium Chloride 0.9% 100 ML IVPB SCH (21:24)
--- NOTE | 2018-08-20 21:28 | CP.PCM.PN ---
Subjective - Date & Time of Evaluation Date of Evaluation: 08/20/18 Time of Evaluation: 21:17 - Subjective Subjective: dictated Objective - Vital Signs/Intake and Output Vital Signs (last 24 hours): Temp Pulse Resp BP Pulse Ox 98.0 F 74 20 134/64 93 L 08/20/18 16:00 08/20/18 16:00 08/20/18 16:00 08/20/18 16:00 08/20/18 16:00 - Medications Medications: Current Medications Acetaminophen (Tylenol 325mg Tab) 650 mg PO Q6 PRN PRN Reason: Fever >100.4 F Last Admin: 08/20/18 11:28 Dose: 650 mg Albuterol/Ipratropium (Duoneb 3 Mg/0.5 Mg (3 Ml) Ud) 3 ml INH RQ6 [facility] Last Admin: 08/20/18 19:20 Dose: 3 ml Clonazepam (Klonopin) 1 mg PO HS [facility] Last Admin: 08/20/18 21:24 Dose: 1 mg Dextrose (Dextrose 50% Inj) 0 ml IV STAT PRN; Protocol PRN Reason: Hypoglycemia Protocol Dextrose (Glutose 15) 0 gm PO ONCE PRN; Protocol PRN Reason: Hypoglycemia Protocol Enoxaparin Sodium (Lovenox) 40 mg SC DAILY [facility] Last Admin: 08/20/18 10:48 Dose: 40 mg Gabapentin (Neurontin) 100 mg PO TID [facility] Last Admin: 08/20/18 17:48 Dose: 100 mg Glucagon (Glucagen Diagnostic Kit) 0 mg IM STAT PRN; Protocol PRN Reason: Hypoglycemia Protocol Guaifenesin/Codeine Phosphate (Guaifenesin/Codeine) 10 ml PO Q6 PRN PRN Reason: Cough and congestion Last Admin: 08/20/18 08:21 Dose: 10 ml Cefazolin Sodium 1 gm/ Sodium (Chloride) 100 mls @ 100 mls/hr IVPB Q8H [facility]; Protocol Last Admin: 08/20/18 21:24 Dose: 100 mls/hr Insulin Aspart (Novolog) 0 unit SC ACHS [facility]; Protocol Last Admin: 08/20/18 21:23 Dose: Not Given Metformin HCl (Glucophage) 500 mg PO DAILY [facility] Last Admin: 08/20/18 10:47 Dose: 500 mg Methylprednisolone (Solu-Medrol) 60 mg IVP Q6 [facility] Last Admin: 08/20/18 17:48 Dose: 60 mg Montelukast Sodium (Singulair) 10 mg PO HS [facility] Last Admin: 08/20/18 21:24 Dose: 10 mg Pantoprazole Sodium (Protonix Ec Tab) 40 mg PO DAILY [facility] Risperidone (Risperdal Tab) 3 mg PO HS [facility] Last Admin: 08/20/18 21:24 Dose: 3 mg Rosuvastatin Calcium (Crestor) 5 mg PO HS [facility] Last Admin: 08/20/18 21:24 Dose: 5 mg Tramadol HCl (Ultram) 50 mg PO Q8 PRN PRN Reason: Pain, severe (8-10) Last Admin: 08/20/18 13:33 Dose: 50 mg - Labs Labs: 08/19/18 14:14 08/19/18 14:14 PT 11.0 SECONDS (9.7-12.2) 08/17/18 09:54 INR 1.0 08/17/18 09:54 APTT 22 SECONDS (21-34) 08/17/18 09:54
[2018-08-21] MEDS: MethylPREDNISolone 40 mg Vial IVP SCH ×3 (00:10→12:29)
--- NOTE | 2018-08-21 00:15 | PN ---
DATE: 08/20/2018 SUBJECTIVE: The patient states she slept 6 hours last night and feeling much better. Her breathing is much easier. The patient is back on her old medications, Risperdal 3 mg at bedtime and Klonopin. The patient just will take Dalmane before and it is not available at this hospital. So we will keep with her Klonopin 1 mg at bedtime and then Risperdal 3 mg at bedtime. The patient seems to be improving likewise. REVIEW OF SYSTEMS: GENERAL: She is alert and oriented x3. Resting in her room. Not in acute respiratory distress. SKIN: No diaphoresis. HEENT: No headache. No dizziness. RESPIRATORY: The patient is breathing easier. CARDIOVASCULAR: No chest pain. GASTROINTESTINAL: She is eating well. EXTREMITIES: Moving extremities. MUSCULOSKELETAL: She still feels weak. NEUROLOGIC: Alert and oriented x3. GENITOURINARY: No dysuria. PHYSICAL EXAMINATION: VITAL SIGNS: Temperature 98, pulse 74, blood pressure 134/64, respirations 20, oxygen saturation 93%. MENTAL STATUS EXAMINATION: Elderly female, who looks her age, alert and oriented x3. Less anxious, somatic, and depressed. Affect is reactive. Speech is spontaneous. Thought process, coherent. Thought content, no overt psychosis. No suicidal or homicidal ideation. Attention and memory tends to be fair. Insight and judgment fair. Impulse control is fair. IMPRESSION: 1. Depression. 2. Psychosis. 3. Mood disorder. 4. Exacerbation of chronic obstructive pulmonary disease. PLAN AND RECOMMENDATIONS: The patient is seen. Medications reviewed. Continue present psychiatric medications. Risperdal 3 mg at bedtime. Klonopin 1 mg at bedtime. Continue treatment and plan as outlined. Evan Gomez MD MTDD
[2018-08-21 00:58] VITALS: O2SAT 95
[2018-08-21] MEDS: Albuterol-Ipratrop 3 mg / 0.5 (3 ml) UD INH SCH ×2 (01:36→07:32)
--- NOTE | 2018-08-21 03:19 | PN ---
DATE: 08/20/2018 SUBJECTIVE: The patient feels better, less cough, less shortness of breath, less wheezing. No fever, no chills. No nausea or vomiting. PHYSICAL EXAMINATION: VITAL SIGNS: Blood pressure 134/64, pulse 74, respiratory rate 20, and temperature 98. LUNGS: Bilateral inspiratory and expiratory rhonchi. Decreased air entry. CARDIOVASCULAR SYSTEM: S1 and S2 regular. ABDOMEN: Soft. ASSESSMENT: 1. Acute exacerbation of bronchial asthma. 2. Tracheobronchitis. 3. Hypertension. 4. Depression. 5. Steroid-induced diabetes. PLAN: Continue steroids, taper steroids. Accu-Chek sliding scale. Monitor the patient. Miquel Macias MD
[2018-08-21] MEDS: ceFAZolin 1 GM in Sodium Chloride 0.9% 100 ML IVPB SCH (05:25)
[2018-08-21 07:50] VITALS: BP 152/79; PULSE 70; TEMP 98.3
[2018-08-21] MEDS: (Novolog) Insulin Aspart, Recombinant 100 u/ml 10 ml vial SC SCH ×2 (08:15→12:37)
[2018-08-21] MEDS ORDERED: Pantoprazole 40 mg EC Tab PO SCH (10:00)
[2018-08-21] MEDS: Enoxaparin 40 mg Syringe SC SCH (10:29)
--- NOTE | 2018-08-21 12:54 | CP.PCM.PN ---
Subjective - Date & Time of Evaluation Date of Evaluation: 08/21/18 Time of Evaluation: 12:00 - Subjective Subjective: patient seen today, states sob , cough an d congestion improved, wants to go home vss - stable Objective - Vital Signs/Intake and Output Vital Signs (last 24 hours): Temp Pulse Resp BP Pulse Ox 98.3 F 70 20 152/79 H 95 08/21/18 07:20 08/21/18 07:20 08/21/18 07:20 08/21/18 07:20 08/21/18 07:20 Intake and Output: 08/21/18 08/21/18 06:59 18:59 Intake Total 400 Balance 400 - Medications Medications: Current Medications Acetaminophen (Tylenol 325mg Tab) 650 mg PO Q6 PRN PRN Reason: Fever >100.4 F Last Admin: 08/20/18 11:28 Dose: 650 mg Albuterol/Ipratropium (Duoneb 3 Mg/0.5 Mg (3 Ml) Ud) 3 ml INH RQ6 ODALIS Last Admin: 08/21/18 07:32 Dose: 3 ml Clonazepam (Klonopin) 1 mg PO HS ODALIS Last Admin: 08/20/18 21:24 Dose: 1 mg Dextrose (Dextrose 50% Inj) 0 ml IV STAT PRN; Protocol PRN Reason: Hypoglycemia Protocol Dextrose (Glutose 15) 0 gm PO ONCE PRN; Protocol PRN Reason: Hypoglycemia Protocol Enoxaparin Sodium (Lovenox) 40 mg SC DAILY [facility] Last Admin: 08/21/18 10:29 Dose: 40 mg Gabapentin (Neurontin) 100 mg PO TID ODALIS Last Admin: 08/21/18 10:29 Dose: 100 mg Glucagon (Glucagen Diagnostic Kit) 0 mg IM STAT PRN; Protocol PRN Reason: Hypoglycemia Protocol Guaifenesin/Codeine Phosphate (Guaifenesin/Codeine) 10 ml PO Q6 PRN PRN Reason: Cough and congestion Last Admin: 08/20/18 08:21 Dose: 10 ml Cefazolin Sodium 1 gm/ Sodium (Chloride) 100 mls @ 100 mls/hr IVPB Q8H ODALIS; Protocol Last Admin: 08/21/18 05:25 Dose: 100 mls/hr Insulin Aspart (Novolog) 0 unit SC ACHS ODALIS; Protocol Last Admin: 08/21/18 12:37 Dose: 2 unit Metformin HCl (Glucophage) 500 mg PO DAILY [facility] Last Admin: 08/21/18 10:29 Dose: 500 mg Methylprednisolone (Solu-Medrol) 60 mg IVP Q6 [facility] Last Admin: 08/21/18 12:29 Dose: 60 mg Montelukast Sodium (Singulair) 10 mg PO HS [facility] Last Admin: 08/20/18 21:24 Dose: 10 mg Pantoprazole Sodium (Protonix Ec Tab) 40 mg PO DAILY [facility] Last Admin: 08/21/18 10:29 Dose: 40 mg Risperidone (Risperdal Tab) 3 mg PO HS [facility] Last Admin: 08/20/18 21:24 Dose: 3 mg Rosuvastatin Calcium (Crestor) 5 mg PO HS [facility] Last Admin: 08/20/18 21:24 Dose: 5 mg Tramadol HCl (Ultram) 50 mg PO Q8 PRN PRN Reason: Pain, severe (8-10) Last Admin: 08/21/18 08:19 Dose: 50 mg - Labs Labs: 08/19/18 14:14 08/19/18 14:14 PT 11.0 SECONDS (9.7-12.2) 08/17/18 09:54 INR 1.0 08/17/18 09:54 APTT 22 SECONDS (21-34) 08/17/18 09:54 - Constitutional Appears: Well, No Acute Distress - Respiratory Exam Respiratory Exam: Rhonchi, Wheezes, NORMAL BREATHING PATTERN - Cardiovascular Exam Cardiovascular Exam: REGULAR RHYTHM Assessment and Plan - Assessment and Plan (Free Text) Assessment: A/P 63 yr old female with pmhx of Asthma/ COPD, Depression, admitted with COPD exacerbation pateint cllinically improved with steroids and antibiotics D/W Dr. Macias , stable for discharge home today with medrol dose pack and f/u with Dr. Macias office in 1 week ( Patient has o2 at home) discharge plan discussed with patient who understanda and agrees with plan , patient instructed to returns to ED if symptoms get worse or any other concerning symptom s
--- NOTE | 2018-08-21 13:40 | PN ---
DATE: 08/21/2018 SUBJECTIVE: The patient is feeling much better. She states she might be going home today, sleeping better. Her breathing seems to be much better. Awaiting medical clearance. The patient moshe is on Klonopin 1 mg at bedtime and Risperdal 3 mg at bedtime; however, the patient is still in IV methylprednisolone and may need to be switched to p.o. PHYSICAL EXAMINATION: VITAL SIGNS: Temperature 98.3, pulse 70, blood pressure 152/79, respirations 20, and oxygen saturation 95%. REVIEW OF SYSTEMS: GENERAL: She is alert and oriented x3. She was seen eating and the family members at bedside, conversing in French and Mongolian. SKIN: No diaphoresis. HEENT: No headache. No dizziness. NECK: Supple. RESPIRATORY: Not in acute respiratory distress. CARDIOVASCULAR: No chest pain. GASTROINTESTINAL: She has good appetite. EXTREMITIES: The patient moving extremities. MUSCULOSKELETAL: Feels weak. NEUROLOGIC: Alert and oriented x3. The patient feeling much better. The patient wants to go home. MENTAL STATUS EXAMINATION: Elderly female, who looks stated age, oriented x3. Speech is spontaneous. Affect is reactive. Mood is much better. Affect reactive. Thought process, coherent. Thought content, no psychosis. The patient wants to go home. No psychosis. No suicidal thoughts or ideation. Attention and memory seem to be fair. Insight and judgment fair. Impulse control is fair. IMPRESSION: 1. History of depression. 2. Psychosis. 3. Mood disorder. 4. Exacerbation of chronic obstructive pulmonary disease. PLAN AND RECOMMENDATIONS: The patient is seen. Meds reviewed. The patient, if discharged, may need to continue her Klonopin 1 mg at bedtime as well as Risperdal 3 mg at bedtime. These are her maintenance doses. To follow up with her psychiatrist as an outpatient, [facility]. Moshe, she is stable for discharge once medically cleared. Evan Gomez MD
--- NOTE | 2018-08-21 14:36 | CP.PCM.PN ---
Subjective - Date & Time of Evaluation Date of Evaluation: 08/21/18 Time of Evaluation: 11:20 - Subjective Subjective: Patient seen and examined at bedside. At this time has no complaints. She states that after receiving her home Singulair yesterday. She had began to feel much better. At this time, patient feels that she is ready to go home. Exam: General: well appearing and in no acute distress heart: regular rate and rhythm, S1, S2. Lungs: clear to auscultation bilaterally. Abdomen: soft, nontender, nondistended Objective - Vital Signs/Intake and Output Vital Signs (last 24 hours): Temp Pulse Resp BP Pulse Ox 98.3 F 70 20 152/79 H 95 08/21/18 07:20 08/21/18 07:20 08/21/18 07:20 08/21/18 07:20 08/21/18 07:20 Intake and Output: 08/21/18 08/21/18 06:59 18:59 Intake Total 400 Balance 400 - Labs Labs: 08/19/18 14:14 08/19/18 14:14 PT 11.0 SECONDS (9.7-12.2) 08/17/18 09:54 INR 1.0 08/17/18 09:54 APTT 22 SECONDS (21-34) 08/17/18 09:54 - Head Exam Head Exam: ATRAUMATIC, NORMOCEPHALIC - ENT Exam ENT Exam: Mucous Membranes Moist - Neck Exam Neck Exam: Normal Inspection - Respiratory Exam Respiratory Exam: Clear to Ausculation Bilateral - Cardiovascular Exam Cardiovascular Exam: REGULAR RHYTHM Assessment and Plan (1) COPD exacerbation Assessment & Plan: stable from pulmonary standpoint Switch to by mouth antibiotics, steroids and continue nebulizer treatment Status: Acute
--- NOTE | 2018-08-21 16:50 | CP.PCM.PN ---
<Donn Brownlee - Last Filed: 08/21/18 16:51> Subjective - Date & Time of Evaluation Date of Evaluation: 08/21/18 Time of Evaluation: 16:50 - Subjective Subjective: PGY-2 Progress Note: Dr. Henry Service Patient seen and examined at bedside. Per nursing, no acute events occurred overnight .Patient does admit to productive cough with white phlegm. Patient denies any fevers, chills, nausea, vomiting, chest pain, abdominal pain, or any other complaints. Objective - Vital Signs/Intake and Output Vital Signs (last 24 hours): Temp Pulse Resp BP Pulse Ox 98.3 F 70 20 152/79 H 95 08/21/18 07:20 08/21/18 07:20 08/21/18 07:20 08/21/18 07:20 08/21/18 07:20 Intake and Output: 08/21/18 08/21/18 06:59 18:59 Intake Total 400 Balance 400 - Labs Labs: 08/19/18 14:14 08/19/18 14:14 PT 11.0 SECONDS (9.7-12.2) 08/17/18 09:54 INR 1.0 08/17/18 09:54 APTT 22 SECONDS (21-34) 08/17/18 09:54 - Head Exam Head Exam: ATRAUMATIC, NORMAL INSPECTION - Eye Exam Eye Exam: EOMI, Normal appearance, PERRL Pupil Exam: NORMAL ACCOMODATION, PERRL - ENT Exam ENT Exam: Normal Exam - Neck Exam Neck Exam: Normal Inspection - Respiratory Exam Respiratory Exam: Clear to Ausculation Bilateral - Cardiovascular Exam Cardiovascular Exam: REGULAR RHYTHM, +S1, +S2 - Extremities Exam Extremities Exam: Full ROM, Normal Capillary Refill - Back Exam Back Exam: NORMAL INSPECTION - Neurological Exam Neurological Exam: Alert, Awake, CN II-XII Intact, Normal Gait, Oriented x3 Assessment and Plan - Assessment and Plan (Free Text) Assessment: 63 year old female with a past medical history of asthma and copd presents with palpitations. Plan: 1.Palpitations EKG: Sinus tachycardia Cardiology consulted. Help appreciated. Echo :EF 50-55% Grade I abnormal relaxation pattern Mitral regurgitation Tricuspid regurgitation mild to moderate 2.COPD exacerbation CXR: Negative for active disease Flu negative Pulmonary rec's appreciated. Medications: Duoneb 3ml INH RQ6 PRN Ancef 1gm IVPB Q8H Solu-medrol 60mg IVP Q6 ODALIS Guaifenesin/Codeine 10ml PO Q6 PRN 3.Diabetes Glucophage 500 mg PO Daily ISS Hypoglycemic protocol 4. Hypercholesterolemia Crestor 5mg PO HS PPX -Protonix -Lovenox Plan discussed with Attending Dr. Henry. Donn Brownlee, PGY-2 <Lenard Henry - Last Filed: 08/21/18 21:29> Objective - Vital Signs/Intake and Output Vital Signs (last 24 hours): Temp Pulse Resp BP Pulse Ox 98.3 F 70 20 152/79 H 95 08/21/18 07:20 08/21/18 07:20 08/21/18 07:20 08/21/18 07:20 08/21/18 07:20 - Labs Labs: 08/19/18 14:14 08/19/18 14:14 PT 11.0 SECONDS (9.7-12.2) 08/17/18 09:54 INR 1.0 08/17/18 09:54 APTT 22 SECONDS (21-34) 08/17/18 09:54 Assessment and Plan - Assessment and Plan (Free Text) Assessment: Patient examined and evaluated personally by me. Plan of care d/w the biomedical service engineer and as documented
--- NOTE | 2018-08-21 23:12 | CP.PCM.DIS ---
Provider - Provider Date of Admission: 08/17/18 11:13 Attending physician: Miquel Macias MD Consults: 08/17/18 12:53 Pulmonology Consult Routine Comment: Consulting Provider: George Romo Consulting Physician: George Romo Reason for Consult: copd 08/18/18 18:53 Cardiology Consult Routine Comment: Consulting Provider: Lenard Henry Consulting Physician: Lenard Henry Reason for Consult: palpitatoions 08/19/18 16:36 Psychiatry Consult Routine Comment: Consulting Provider: Evan Julian Consulting Physician: Evan Julian Reason for Consult: Insomnia and panic attacks Time Spent in preparation of Discharge (in minutes): 23 Hospital Course - Lab Results Lab Results: Micro Results 08/17/18 10:37 Blood Blood Culture - Preliminary NO GROWTH AFTER 4 DAYS 08/17/18 09:30 Blood Blood Culture - Preliminary NO GROWTH AFTER 4 DAYS 08/17/18 11:00 Urine Random Urine Culture - Final No Growth (<1,000 CFU/ML) Most Recent Lab Values WBC 18.1 K/uL (4.8-10.8) H 08/19/18 14:14 RBC 4.60 Mil/uL (3.80-5.20) 08/19/18 14:14 Hgb 13.7 g/dL (11.0-16.0) D 08/19/18 14:14 Hct 43.2 % (34.0-47.0) 08/19/18 14:14 MCV 94.0 fL (81.0-99.0) 08/19/18 14:14 MCH 29.8 pg (27.0-31.0) 08/19/18 14:14 MCHC 31.7 g/dL (33.0-37.0) L 08/19/18 14:14 RDW 16.1 % (11.5-14.5) H 08/19/18 14:14 Plt Count 330 K/uL (130-400) 08/19/18 14:14 MPV 8.2 fL (7.2-11.7) 08/19/18 14:14 Neut % (Auto) 91.0 % (50.0-75.0) H 08/19/18 14:14 Lymph % (Auto) 4.1 % (20.0-40.0) L 08/19/18 14:14 [place]he % (Auto) 4.6 % (0.0-10.0) 08/19/18 14:14 Eos % (Auto) 0.0 % (0.0-4.0) 08/19/18 14:14 Baso % (Auto) 0.3 % (0.0-2.0) 08/19/18 14:14 Neut # (Auto) 16.5 K/uL (1.8-7.0) H 08/19/18 14:14 Lymph # (Auto) 0.7 K/uL (1.0-4.3) L 08/19/18 14:14 Ashe # (Auto) 0.8 K/uL (0.0-0.8) 08/19/18 14:14 Eos # (Auto) 0.0 K/uL (0.0-0.7) 08/19/18 14:14 Baso # (Auto) 0.1 K/uL (0.0-0.2) 08/19/18 14:14 Neutrophils % (Manual) 88 % (50-75) H 08/19/18 14:14 Band Neutrophils % 3 % (0-2) H 08/19/18 14:14 Lymphocytes % (Manual) 3 % (20-40) L 08/19/18 14:14 Monocytes % (Manual) 4 % (0-10) 08/19/18 14:14 Myelocytes % 2 % (0-0) H 08/19/18 14:14 Platelet Estimate Normal (NORMAL) 08/19/18 14:14 PT 11.0 SECONDS (9.7-12.2) 08/17/18 09:54 INR 1.0 08/17/18 09:54 APTT 22 SECONDS (21-34) 08/17/18 09:54 pO2 55 mm/Hg (30-55) 08/17/18 13:28 VBG pH 7.37 (7.32-7.43) 08/17/18 13:28 VBG pCO2 57 mmHg (40-60) 08/17/18 13:28 VBG HCO3 29.3 mmol/L 08/17/18 13:28 VBG Total CO2 34.7 mmol/L (22-28) H 08/17/18 13:28 VBG O2 Sat (Calc) 91.0 % (40-65) H 08/17/18 13:28 VBG Base Excess 6.0 mmol/L (0.0-2.0) H 08/17/18 13:28 VBG Potassium 3.7 mmol/L (3.6-5.2) 08/17/18 13:28 Sodium 136.0 mmol/l (132-148) 08/17/18 13:28 Chloride 98.0 mmol/L (98-107) 08/17/18 13:28 Glucose 172 mg/dl (65-105) H 08/17/18 13:28 Lactate 0.9 mmol/L (0.7-2.1) 08/17/18 13:28 Liter Flow 2.0 08/17/18 13:28 Crit Value Called To Dr lewis 08/17/18 09:58 Crit Value Called By Brian valdez char dust cleaner and salvager 08/17/18 09:58 Crit Value Read Back Y 08/17/18 09:58 Blood Gas Notified Time 1005 08/17/18 09:58 Sodium 142 mmol/L (132-148) 08/19/18 14:14 Potassium 4.4 mmol/L (3.6-5.2) 08/19/18 14:14 Chloride 100 mmol/L (98-107) 08/19/18 14:14 Carbon Dioxide 36 mmol/L (22-30) H 08/19/18 14:14 Anion Gap 10 (10-20) 08/19/18 14:14 BUN 15 mg/dL (7-17) 08/19/18 14:14 Creatinine 0.7 mg/dL (0.7-1.2) 08/19/18 14:14 Est GFR ( Amer) > 60 08/19/18 14:14 Est GFR (Non-Af Amer) > 60 08/19/18 14:14 POC Glucose (mg/dL) 182 mg/dL (65-110) H 08/21/18 11:17 Random Glucose 148 mg/dL (65-105) H 08/19/18 14:14 Calcium 8.7 mg/dl (8.6-10.4) 08/19/18 14:14 Phosphorus 3.7 mg/dL (2.5-4.5) 08/17/18 10:37 Magnesium 2.0 mg/dL (1.6-2.3) 08/19/18 14:14 Total Bilirubin 0.6 mg/dL (0.2-1.3) 08/17/18 10:37 AST 21 U/L (14-36) 08/17/18 10:37 ALT 23 U/L (9-52) 08/17/18 10:37 Alkaline Phosphatase 108 U/L (38-126) 08/17/18 10:37 Troponin I 0.0290 ng/mL (0.00-0.120) 08/17/18 10:37 NT-Pro-B Natriuret Pep 652 pg/mL (0-900) 08/17/18 10:37 Total Protein 7.3 g/dL (6.3-8.3) 08/17/18 10:37 Albumin 4.1 g/dL (3.5-5.0) 08/17/18 10:37 Globulin 3.2 gm/dL (2.2-3.9) 08/17/18 10:37 Albumin/Globulin Ratio 1.3 (1.0-2.1) 08/17/18 10:37 Venous Blood Potassium 3.7 mmol/L (3.6-5.2) 08/17/18 13:28 Urine Color Yellow (YELLOW) 08/17/18 11:00 Urine Clarity Clear (Clear) 08/17/18 11:00 Urine pH 6.0 (5.0-8.0) 08/17/18 11:00 Ur Specific Sterling 1.014 (1.003-1.030) 08/17/18 11:00 Urine Protein 2+ mg/dL (NEGATIVE) H 08/17/18 11:00 Urine Glucose (UA) Normal mg/dL (Normal) 08/17/18 11:00 Urine Ketones Negative mg/dL (NEGATIVE) 08/17/18 11:00 Urine Blood Negative (NEGATIVE) 08/17/18 11:00 Urine Nitrate Negative (NEGATIVE) 08/17/18 11:00 Urine Bilirubin Negative (NEGATIVE) 08/17/18 11:00 Urine Urobilinogen Normal mg/dL (0.2-1.0) 08/17/18 11:00 Ur Leukocyte Esterase Trace Linda/uL (Negative) 08/17/18 11:00 Urine WBC (Auto) 6 /hpf (0-5) H 08/17/18 11:00 Urine RBC (Auto) 4 /hpf (0-3) H 08/17/18 11:00 Ur Squamous Epith Cells 7 /hpf (0-5) H 08/17/18 11:00 Urine Bacteria Rare (<OCC) 08/17/18 11:00 Influenza Typ A,B (EIA) Negative for flu a/b (NEGATIVE) 08/17/18 09:54 Discharge Exam - Head Exam Head Exam: ATRAUMATIC, NORMAL INSPECTION Discharge Plan - Discharge Medications Prescriptions: Clonazepam [Klonopin] 0.5 mg PO DAILY #10 tablet Methylprednisolone [Medrol Dose Pack (21 tabs)] 4 mg PO DAILY #21 mg RX: Montelukast [Singulair] 10 mg PO HS #30 tab RX: Albuterol HFA [Ventolin HFA 90 mcg/actuation (8 g)] 0.09 mg IH Q6 #1 puff - Follow Up Plan Condition: STABLE Disposition: HOME/ ROUTINE Instructions: Heart Healthy Diet, Exacerbation of COPD (DC), Albuterol, Clonazepam, Methylprednisolone, Montelukast Additional Instructions: Please follow up with Dr. Macias office in 1 week Please continue medication as per med. rec. Please use o2 as needed at home Por favor aleshia un seguimiento con la oficina del Dr. Macias en 1 semana Por favor contine la medicacin segn med. rec. Por favor use o2 cuando sea necesario en casa Referrals: Miquel Macias MD [Staff Provider] - 08/28/18 2:00 pm
--- NOTE | 2018-08-22 03:27 | DS ---
DISCHARGE DIAGNOSES: 1. Acute exacerbation of bronchial asthma. 2. Type 2 diabetes. 3. Major depression. 4. Tracheobronchitis. 5. Hypertension. HISTORY OF PRESENT ILLNESS: The patient is a 63-year-old female, well known to me, with history of bronchial asthma, hypertension, diabetes, hyperlipidemia, and osteoarthritis. She is compliant with her diet, medication, and followup. She came in because of cough, congestion, shortness of breath, and wheezing. The patient did not respond to outpatient treatment. She was admitted. She was started on Solu-Medrol, oxygen nebulizer, guaifenesin, and the patient's condition started improving. She felt better. Her shortness of breath improved. Her cough decreased. She denies any nausea, vomiting, or chest pain. Her headache has gone. Blood pressure is down, and the patient is for discharge. Condition upon discharge is stable. PHYSICAL EXAMINATION: VITAL SIGNS: Blood pressure 127/71, pulse 71, respiratory rate 20, temperature 98. LABORATORY DATA: Glucose 182, 163. WBC 18.1, hemoglobin 13.7, hematocrit 43.2, platelets 330. Coagulation profile negative. ABG: PH of 7.37, pCO2 of 57, pO2 is 55, saturation is 91%. Chemistry is benign. Sodium 142, potassium 4.4, chloride 100, bicarb 33, BUN 15, and creatinine 0.7. CONDITION UPON DISCHARGE: Stable. Miquel Macias MD
== END 2018-08-21 13:45 | disposition home or self-care (01) | DRG 88 ==
LOC: C.ER 09:09 → C.9E 11:13 → C.6T 19:56
PROVIDERS: ADMIT Internal Medicine; ATTEND Internal Medicine
DX: J44.1 Chronic obstructive pulmonary disease with (acute) exacerbation (principal); J45.901 Unspecified asthma with (acute) exacerbation; R09.02 Hypoxemia; F06.4 Anxiety disorder due to known physiological condition; J11.1 Influenza due to unidentified influenza virus with other respiratory manifestations; I10 Essential (primary) hypertension; E78.5 Hyperlipidemia, unspecified; E09.9 Drug or chemical induced diabetes mellitus without complications; F32.9 Major depressive disorder, single episode, unspecified; F41.0 Panic disorder [episodic paroxysmal anxiety]; G47.00 Insomnia, unspecified; F17.210 Nicotine dependence, cigarettes, uncomplicated; Z99.81 Dependence on supplemental oxygen; Z79.899 Other long term (current) drug therapy; Z91.012 Allergy to eggs

== ENCOUNTER 2018-09-19 12:59 | Inpatient (IN) | payer MEDICAID ==
[2018-09-19 12:59] VITALS: BMI 26.6
--- NOTE | 2018-09-19 13:29 | C.PDOC ---
History Of Present Illness 63 year old female presents to ED with complaint of left sided abdominal pain for the past 4 days. Patient has also been experiencing nausea, diarrhea, and dysuria. She describes the pain as constant and non-radiating. Patient states there are no exacerbating factors associated with the pain and that she has never previously experienced an episode of the same kind of pain. Patient admits to having a history of asthma. Patient denies fever,chills, and vomiting. Time Seen by Provider: 09/19/18 13:18 Chief Complaint (Nursing): Abdominal Pain History Per: Patient History/Exam Limitations: no limitations Onset/Duration Of Symptoms: Days (4), Persistent Current Symptoms Are (Timing): Still Present Location Of Pain/Discomfort: LLQ, Periumbilical Quality Of Discomfort: "Pain" Associated Symptoms: Nausea, Diarrhea, Urinary Symptoms (dysuria). denies: Fever, Chills, Vomiting Exacerbating Factors: None Past Medical History Reviewed: Historical Data, Nursing Documentation, Vital Signs Vital Signs: Last Vital Signs Temp 98.3 F 09/19/18 13:10 Pulse 104 H 09/19/18 13:10 Resp 20 09/19/18 13:10 BP 153/74 H 09/19/18 13:10 Pulse Ox 95 09/19/18 13:10 - Medical History PMH: Anxiety, Arthritis, Asthma, COPD, Depression, Diabetes, Emphysema, HTN, Hypercholesterolemia Denies: Chronic Kidney Disease Surgical History: Family History: States: Unknown Family Hx - Social History Hx Tobacco Use: Yes Hx Alcohol Use: No Hx Substance Use: No - Immunization History Hx Tetanus Toxoid Vaccination: No Hx Influenza Vaccination: No (Allergic to Eggs) Hx Pneumococcal Vaccination: No (Allergic to Eggs) Review Of Systems Constitutional: Negative for: Fever, Chills, Weakness Cardiovascular: Negative for: Chest Pain, Palpitations Respiratory: Negative for: Cough, Shortness of Breath Gastrointestinal: Positive for: Nausea, Abdominal Pain (left-sided), Diarrhea. Negative for: Vomiting Genitourinary: Positive for: Dysuria Neurological: Negative for: Weakness, Numbness, Dizziness Physical Exam - Physical Exam Appears: Non-toxic, Other (uncomfortable,moderate pain) Skin: Normal Color, Warm, Dry Head: Atraumatic, Normacephalic Neck: Normal ROM, Supple Chest: Symmetrical, No Deformity Cardiovascular: Rhythm Regular, Other (tachycardic) Respiratory: No Accessory Muscle Use, No Rhonchi, Wheezing (mild expiratory bilateral wheezing) Gastrointestinal/Abdominal: Tenderness (left periumbilical,left quadrant area), No Guarding, No Rebound, No Other (McBurney's point, Bowman's sign) Back: CVA Tenderness (right-sided) Extremity: Capillary Refill (<2 seconds) Extremity: Bilateral: Atraumatic, Normal Color And Temperature Pulses: Left Radial: Normal, Right Radial: Normal Neurological/Psych: Oriented x3, Normal Speech, Normal Cognition ED Course And Treatment - Laboratory Results Result Diagrams: 09/19/18 15:06 09/19/18 15:06 O2 Sat by Pulse Oximetry: 95 (RA) - CT Scan/US CT Abdomen/Pelvis Other Rad Studies (CT/US): Interpreted By Me, Read By Radiologist CT/US Interpretation: Accession No. : [id number]. Patient Name / ID : TRISTA ROSADO / [id number]. Exam Date : 09/19/2018 16:47:55 ( Approved ). Study Comment : Sex / Age : F / 63Y. Creator : Sheryl Ortiz. Dictator : Jelena Nieto MD. Business Trainer : Furnace Loader : Jelena Nieto MD. Approver2 : Report Date : 09/19/2018 17:00:38. My Comment : . Date of service: 09/19/2018. PROCEDURE: CT Abdomen and Pelvis with and without intravenous contrast. HISTORY: LLQ pain r/o diverticulitis, R flank pain, r/o stone. COMPARISON: CT abdomen and pelvis with contrast performed 08/23/15. TECHNIQUE: Axial images of the abdomen were obtained without and with IV contrast. Coronal and sagittal reformats were generated. Contrast dose: 100 mL Omnipaque 300 IV. Radiation dose: Total exam DLP = 798.03 mGy-cm. This CT exam was performed using one or more of the following dose reduction techniques: Automated exposure control, adjustment of the mA and/or kV according to patient size, and/or use of iterative reconstruc tion technique. FINDINGS: Evaluation limited by patient motion. LOWER THORAX: Small right lung base consolidation/atelectasis. No visible pleural effusion or pneumothorax. LIVER: Unremarkable. GALLBLADDER AND BILE DUCTS: Unremarkable. PANCREAS: Fatty atrophy. SPLEEN: Unremarkable. ADRENALS: Unremarkable. KIDNEYS AND URETERS: Punctate nonobstructing left renal calculus. No obstructi ng calculus or hydronephrosis evident bilaterally. VASCULATURE: No aortic aneurysm. Aortic atherosclerotic calcifications present. BOWEL: Stomach is nondistended. Lack of oral contrast limits evaluation for bowel pathology. Bowel loops appear within normal limits of caliber without evidence of obstruction. Diverticulosis without CT evidence of acute diverticulitis. APPENDIX: The appendix appears within normal limits of caliber. No secondary signs of acute appendicitis. PERITONEUM: No significant free fluid. No definite free air. LYMPH NODES: No bulky adenopathy identified. BLADDER: Distended urinary bladder appears otherwise unremarkable. REPRODUCTIVE: Uterus is present. 9 x 5 mm right adnexal calcification, nonspecific. BONES: Osseous demineralization. Degenerative changes. OTHER FINDINGS: None. IMPRESSION: Small right basilar atelectasis/consolidation. Punctate nonobstructing left renal calculus. No hydronephrosis or obstructing calculus evident. Diverticulosis without CT evidence of acute diverticulitis. Distended urinary bladder appears otherwise unremarkable. Nonspecific 9 x 5 mm right adnexal calcification. Additional findings as above. Progress Note: Bloodwork ordered for patient. CT Abdomen/Pelvis ordered for patient. Patient given Morphine PO and IV fluids. Disposition - Disposition Forms: CareParent (Telugu) - Scribe Statement The provider has reviewed the documentation as recorded by the Scribe (Avelina Kinsey) All medical record entries made by the Scribe were at my direction and personally dictated by me. I have reviewed the chart and agree that the record accurately reflects my personal performance of the history, physical exam, medical decision making, and the department course for this patient. I have also personally directed, reviewed, and agree with the discharge instructions and disposition.
[2018-09-19] MEDS ORDERED: Sodium Chloride 0.9% 1,000 ML IV ONE (13:30)
[2018-09-19] MEDS ORDERED: Albuterol 0.083% Inhal Sol (2.5 mg/3 mL) UD IH STA (14:20)
[2018-09-19] MEDS ORDERED: Sodium Chloride 0.9% 1,000 ML ONE (14:42)
[2018-09-19] MEDS ORDERED: Albuterol 0.083% Inhal Sol (2.5 mg/3 mL) UD ONE (14:42)
[2018-09-19 15:14] LABS: BASO # 0.1 K/uL (0.0-0.2); BASO % 1.3 % (0.0-2.0); EOS # 0.3 K/uL (0.0-0.7); EOS % 2.4 % (0.0-4.0); HEMOGLOBIN 14.4 g/dL (11.0-16.0); LYMPH # 3.1 K/uL (1.0-4.3); LYMPH % 27.1 % (20.0-40.0); MEAN CELL VOLUME 92.6 fL (81.0-99.0); MEAN CORPUSCULAR HEMOGLOBIN 29.6 pg (27.0-31.0); MEAN PLATELET VOLUME 8.4 fL (7.2-11.7); MONO # 1.3 K/uL (0.0-0.8); MONO % 11.7 % (0.0-10.0); NEUT # 6.5 K/uL (1.8-7.0); NEUT % 57.5 % (50.0-75.0); NRBC % 0.1 % (0.0-2.0); RBC 4.85 Mil/uL (3.80-5.20); WHITE BLOOD COUNT 11.3 K/uL (4.8-10.8)
[2018-09-19 15:22] LABS: ALB/GLOB RATIO 1.2 (1.0-2.1); ALBUMIN 3.9 g/dL (3.5-5.0); ALT/SGPT 11 U/L (9-52); AST/SGOT 23 U/L (14-36); BLOOD UREA NITROGEN 7 mg/dL (7-17); CALCIUM 8.7 mg/dl (8.6-10.4); GFR NON-AFRICAN AMERICAN > 60; LIPASE 22 U/L (23-300)
[2018-09-19 15:40] LABS: SQUAMOUS EPITHIAL 5 /hpf (0-5); URINE BACTERIA RARE (<OCC); URINE BILIRUBIN NEGATIVE (NEGATIVE); URINE BLOOD NEGATIVE (NEGATIVE); URINE CLARITY Clear (Clear); URINE COLOR Yellow (YELLOW); URINE GLUCOSE (UA) NORMAL (Normal); URINE LEUKOCYTE ESTERASE 1+ Leu/uL (Negative); URINE PROTEIN NEGATIVE (NEGATIVE); URINE UROBILINOGEN NORMAL mg/dL (0.2-1.0)
[2018-09-19] MEDS ORDERED: Iohexol 300 100 ML IJ ONE (16:22)
--- NOTE | 2018-09-19 17:29 | CT ---
Date of service: 09/19/2018 PROCEDURE: CT Abdomen and Pelvis with and without intravenous contrast HISTORY: LLQ pain r/o diverticulitis, R flank pain, r/o stone COMPARISON: CT abdomen and pelvis with contrast performed 08/23/15 TECHNIQUE: Axial images of the abdomen were obtained without and with IV contrast. Coronal and sagittal reformats were generated. Contrast dose: 100 mL Omnipaque 300 IV Radiation dose: Total exam DLP = 798.03 mGy-cm. This CT exam was performed using one or more of the following dose reduction techniques: Automated exposure control, adjustment of the mA and/or kV according to patient size, and/or use of iterative reconstruction technique. FINDINGS: Evaluation limited by patient motion. LOWER THORAX: Small right lung base consolidation/atelectasis. No visible pleural effusion or pneumothorax. LIVER: Unremarkable. GALLBLADDER AND BILE DUCTS: Unremarkable. PANCREAS: Fatty atrophy. SPLEEN: Unremarkable. ADRENALS: Unremarkable. KIDNEYS AND URETERS: Punctate nonobstructing left renal calculus. No obstructing calculus or hydronephrosis evident bilaterally. VASCULATURE: No aortic aneurysm. Aortic atherosclerotic calcifications present. BOWEL: Stomach is nondistended. Lack of oral contrast limits evaluation for bowel pathology. Bowel loops appear within normal limits of caliber without evidence of obstruction. Diverticulosis without CT evidence of acute diverticulitis. APPENDIX: The appendix appears within normal limits of caliber. No secondary signs of acute appendicitis. PERITONEUM: No significant free fluid. No definite free air. LYMPH NODES: No bulky adenopathy identified. BLADDER: Distended urinary bladder appears otherwise unremarkable. REPRODUCTIVE: Uterus is present. 9 x 5 mm right adnexal calcification, nonspecific. BONES: Osseous demineralization. Degenerative changes. OTHER FINDINGS: None. IMPRESSION: Small right basilar atelectasis/consolidation. Punctate nonobstructing left renal calculus. No hydronephrosis or obstructing calculus evident. Diverticulosis without CT evidence of acute diverticulitis. Distended urinary bladder appears otherwise unremarkable. Nonspecific 9 x 5 mm right adnexal calcification. Additional findings as above.
[2018-09-19] MEDS ORDERED: cefTRIAXone IV 1 gm in Dextros 50 ML IV ONE (17:36)
[2018-09-19] MEDS ORDERED: Azithromycin 500 MG in Sodium Chloride 0.9% 250 ML IVPB STA (17:39)
[2018-09-19] MEDS ORDERED: Azithromycin 500mg/250ML NS 500 MG/250 ML BAG IVPB ONE (18:16)
[2018-09-19] MEDS: guaiFENesin 600 mg ER Tab PO SCH (21:54)
[2018-09-19 22:57] VITALS: RESP 20
[2018-09-20] MEDS: Albuterol 0.083% Inhal Sol (2.5 mg/3 mL) UD INH SCH ×3 (07:35→20:31)
[2018-09-20] MEDS: Enoxaparin 40 mg Syringe SC SCH (09:31)
[2018-09-20] MEDS: guaiFENesin 600 mg ER Tab PO SCH ×2 (09:34→18:05)
--- NOTE | 2018-09-20 10:55 | CARD ---
APPROVED REPORT Date of service: 09/19/2018 EKG Measurement Heart [id number] <Conclusion> Normal sinus rhythm Possible Left atrial enlargement Left axis deviation Left bundle branch block Abnormal ECG
[2018-09-20] MEDS: (Novolin R) Insulin Human Regular 100 units/ml vial SC SCH ×2 (17:10→22:39)
[2018-09-20] MEDS ORDERED: Azithromycin 500 MG in Sodium Chloride 0.9% 250 ML IVPB SCH (19:00)
--- NOTE | 2018-09-21 00:43 | HP ---
CHIEF COMPLAINT: Lower abdominal pain x3 days. HISTORY OF PRESENT ILLNESS: This is a 63-year-old female, well known to me with a history of chronic persistent obstructive asthma, type 2 diabetes, hypertension, anxiety, and depression. She is compliant with her diet, medication and followup. Requiring multiple medications. In her usual status of health, she is ambulatory and independent in activities of daily living. Chronically sick, requiring medications. Came in because of cough, congestion, shortness of breath, wheezing, chills, rigors, body aches, lower abdominal pain, dysuria, frequency and mild left lower quadrant pain as well. No bleeding per rectum, hematochezia, hematemesis or melena. Pain is persistent and is continuous, not associated with any rectal itching or rectal irritation. She denies any polyuria or polydipsia. She denies any history of hematuria or pyuria. She denies any joint pain. She has low back pain. PAST MEDICAL HISTORY: Type 2 diabetes, asthma, hypertension, hyperlipidemia. SOCIAL HISTORY: She smokes. She drinks. She has . CURRENT MEDICATIONS: She is on metformin, Risperdal, Pravachol, Singulair, Klonopin, Medrol Dosepak and Ventolin. PHYSICAL EXAMINATION: GENERAL: An elderly female, in distress with lower abdominal pain. VITAL SIGNS: Blood pressure 113/72, pulse 57, respiratory rate 20, temperature 97.9. SKIN: Senile turgor. No bruises. No purpura. No petechiae. No ecchymosis. HEENT: Atraumatic and normocephalic. Negative pallor. Negative jaundice. Extraocular movements are intact. NECK: Supple. No JVD. No lymph node. She is using accessory muscles. LUNGS: Bilateral inspiratory and expiratory rhonchi. Decreased air entry. CARDIOVASCULAR SYSTEM: S1 and S2 are regular. No heave. No thrill. ABDOMEN: Soft. There is lower abdominal diffuse tenderness. Bowel sounds are positive. RECTAL: No masses. No fresh blood. EXTREMITIES: No clubbing, cyanosis or edema. CENTRAL NERVOUS SYSTEM: Awake, alert, oriented x3. ASSESSMENT: 1. Lower abdominal pain, diverticulosis. It could be painful diverticulosis without inflammation. There could be urinary tract infection. 2. Anxiety and depression. 3. Type 2 diabetes. 4. Bronchial asthma, rule out pneumonia. PLAN: Admit. Detailed orders are written. Seen and examined. Miquel Macias MD
[2018-09-21] MEDS: Albuterol 0.083% Inhal Sol (2.5 mg/3 mL) UD INH SCH ×4 (01:21→19:36)
[2018-09-21] MEDS: (Novolin R) Insulin Human Regular 100 units/ml vial SC SCH ×4 (08:48→21:51)
[2018-09-21] MEDS: guaiFENesin 600 mg ER Tab PO SCH ×2 (09:55→17:11)
[2018-09-21] MEDS: Enoxaparin 40 mg Syringe SC SCH (09:57)
[2018-09-21] MEDS ORDERED: Influenza Vaccine 60 mcg/0.5 mL SYR (4YR UP) IM ONE (10:00)
[2018-09-21] MEDS ORDERED: Pneumococcal 23-Valent Vaccine IM ONE (10:00)
--- NOTE | 2018-09-21 22:29 | PN ---
DATE: 09/21/2018 SUBJECTIVE: The patient had decreased cough, decreased shortness of breath, decreased wheezing. PHYSICAL EXAMINATION: VITAL SIGNS: Blood pressure 118/62, pulse 84, respiratory rate 20, temperature 98.3. LUNGS: Decreased air entry. Positive rhonchi. CARDIOVASCULAR SYSTEM: S1, S2 regular. ABDOMEN: Lower abdominal tenderness. ASSESSMENT: 1. Acute diverticulosis. 2. Exacerbation of bronchial asthma, rule out pneumonia. 3. Type 2 diabetes. 4. Anxiety and depression. PLAN: Monitor patient. Pain control. Antibiotics. Miquel Macias MD
[2018-09-22] MEDS: (Novolin R) Insulin Human Regular 100 units/ml vial SC SCH ×4 (08:20→21:18)
[2018-09-22] MEDS: Albuterol 0.083% Inhal Sol (2.5 mg/3 mL) UD INH SCH ×3 (09:39→21:45)
[2018-09-22] MEDS: guaiFENesin 600 mg ER Tab PO SCH ×2 (09:52→17:23)
[2018-09-22] MEDS: Enoxaparin 40 mg Syringe SC SCH (09:54)
--- NOTE | 2018-09-23 01:17 | PN ---
DATE: 09/23/2018 SUBJECTIVE: Christel Thomas is feeling better. She has decreased nausea, decreased abdominal pain. She denies any fevers or chills. PHYSICAL EXAMINATION: VITAL SIGNS: Blood pressure is 138/70, pulse 82, respiratory rate 20, temperature 98.2. LUNGS: Decreased air entry. Positive rhonchi. CARDIOVASCULAR SYSTEM: S1, S2. Regular. ABDOMEN: Soft. ASSESSMENT: 1. Urinary tract infection. 2. Tracheobronchitis, rule out bronchial asthma. 3. Type II diabetes. PLAN: Continue Solu-Medrol. Continue antibiotics. Wait for the sensitivity report on urine cultures and monitor the patient. Miquel Macias MD
[2018-09-23 01:30] VITALS: PULSE 84
[2018-09-23] MEDS: Albuterol 0.083% Inhal Sol (2.5 mg/3 mL) UD INH SCH ×2 (01:57→07:40)
[2018-09-23 07:50] VITALS: BP 155/84; TEMP 98.7; O2SAT 96
[2018-09-23] MEDS: (Novolin R) Insulin Human Regular 100 units/ml vial SC SCH ×2 (08:32→12:30)
[2018-09-23] MEDS ORDERED: MethylPREDNISolone 40 mg Vial IVP SCH (09:09)
[2018-09-23] MEDS: Enoxaparin 40 mg Syringe SC SCH (10:44)
[2018-09-23] MEDS: guaiFENesin 600 mg ER Tab PO SCH (10:47)
--- NOTE | 2018-09-23 16:36 | CP.PCM.PN ---
Subjective - Date & Time of Evaluation Date of Evaluation: 09/23/18 Time of Evaluation: 16:36 - Subjective Subjective: alert, awake, ambulatory, no acute distress. Objective - Vital Signs/Intake and Output Vital Signs (last 24 hours): Temp Pulse Resp BP Pulse Ox 98.7 F 84 20 155/84 H 96 09/23/18 07:49 09/23/18 07:49 09/23/18 07:49 09/23/18 07:49 09/23/18 07:49 Intake and Output: 09/23/18 09/23/18 06:59 18:59 Intake Total 180 Balance 180 - Labs Labs: 09/19/18 15:06 09/19/18 15:06 Assessment and Plan - Assessment and Plan (Free Text) Assessment: 63 year old female admitted with fever, UTI, seen and examined. Alert and oriented x3, denies sob or pains. Seen by DR Macias, plan to discharge home today on po antibiotics. Advised to follow up in the office in 1 week.
--- NOTE | 2018-09-23 20:23 | CP.PCM.DIS ---
Provider - Provider Date of Admission: 09/19/18 17:41 Attending physician: Miquel Macias MD Consults: 09/20/18 09:06 Pulmonology Consult Routine Comment: Consulting Provider: George Romo Consulting Physician: George Romo Reason for Consult: asthma Time Spent in preparation of Discharge (in minutes): 30 Hospital Course - Lab Results Lab Results: Micro Results 09/20/18 19:58 Urine Random Urine Culture - Final Gram Positive Cocci Most Recent Lab Values WBC 11.3 K/uL (4.8-10.8) H 09/19/18 15:06 RBC 4.85 Mil/uL (3.80-5.20) 09/19/18 15:06 Hgb 14.4 g/dL (11.0-16.0) 09/19/18 15:06 Hct 44.9 % (34.0-47.0) 09/19/18 15:06 MCV 92.6 fL (81.0-99.0) 09/19/18 15:06 MCH 29.6 pg (27.0-31.0) 09/19/18 15:06 MCHC 32.0 g/dL (33.0-37.0) L 09/19/18 15:06 RDW 18.0 % (11.5-14.5) H 09/19/18 15:06 Plt Count 375 K/uL (130-400) 09/19/18 15:06 MPV 8.4 fL (7.2-11.7) 09/19/18 15:06 Neut % (Auto) 57.5 % (50.0-75.0) 09/19/18 15:06 Lymph % (Auto) 27.1 % (20.0-40.0) 09/19/18 15:06 [place] % (Auto) 11.7 % (0.0-10.0) H 09/19/18 15:06 Eos % (Auto) 2.4 % (0.0-4.0) 09/19/18 15:06 Baso % (Auto) 1.3 % (0.0-2.0) 09/19/18 15:06 Neut # (Auto) 6.5 K/uL (1.8-7.0) 09/19/18 15:06 Lymph # (Auto) 3.1 K/uL (1.0-4.3) 09/19/18 15:06 [place] # (Auto) 1.3 K/uL (0.0-0.8) H 09/19/18 15:06 Eos # (Auto) 0.3 K/uL (0.0-0.7) 09/19/18 15:06 Baso # (Auto) 0.1 K/uL (0.0-0.2) 09/19/18 15:06 Sodium 135 mmol/L (132-148) 09/19/18 15:06 Potassium 4.2 mmol/L (3.6-5.2) 09/19/18 15:06 Chloride 98 mmol/L (98-107) 09/19/18 15:06 Carbon Dioxide 30 mmol/L (22-30) 09/19/18 15:06 Anion Gap 11 (10-20) 09/19/18 15:06 BUN 7 mg/dL (7-17) 09/19/18 15:06 Creatinine 0.6 mg/dL (0.7-1.2) L 09/19/18 15:06 Est GFR ( Amer) > 60 09/19/18 15:06 Est GFR (Non-Af Amer) > 60 09/19/18 15:06 POC Glucose (mg/dL) 192 mg/dL (65-110) H 09/23/18 11:11 Random Glucose 81 mg/dL (65-105) D 09/19/18 15:06 Calcium 8.7 mg/dl (8.6-10.4) 09/19/18 15:06 Total Bilirubin 0.3 mg/dL (0.2-1.3) 09/19/18 15:06 AST 23 U/L (14-36) 09/19/18 15:06 ALT 11 U/L (9-52) 09/19/18 15:06 Alkaline Phosphatase 107 U/L (38-126) 09/19/18 15:06 Total Protein 7.2 g/dL (6.3-8.3) 09/19/18 15:06 Albumin 3.9 g/dL (3.5-5.0) 09/19/18 15:06 Globulin 3.3 gm/dL (2.2-3.9) 09/19/18 15:06 Albumin/Globulin Ratio 1.2 (1.0-2.1) 09/19/18 15:06 Lipase 22 U/L (23-300) L 09/19/18 15:06 Urine Color Yellow (YELLOW) 09/19/18 15:28 Urine Clarity Clear (Clear) 09/19/18 15:28 Urine pH 7.0 (5.0-8.0) 09/19/18 15:28 Ur Specific Morgan 1.004 (1.003-1.030) 09/19/18 15:28 Urine Protein Negative mg/dL (NEGATIVE) 09/19/18 15:28 Urine Glucose (UA) Normal mg/dL (Normal) 09/19/18 15:28 Urine Ketones Negative mg/dL (NEGATIVE) 09/19/18 15:28 Urine Blood Negative (NEGATIVE) 09/19/18 15:28 Urine Nitrate Negative (NEGATIVE) 09/19/18 15:28 Urine Bilirubin Negative (NEGATIVE) 09/19/18 15:28 Urine Urobilinogen Normal mg/dL (0.2-1.0) 09/19/18 15:28 Ur Leukocyte Esterase 1+ Linda/uL (Negative) H 09/19/18 15:28 Urine WBC (Auto) 7 /hpf (0-5) H 09/19/18 15:28 Urine RBC (Auto) 2 /hpf (0-3) 09/19/18 15:28 Ur Squamous Epith Cells 5 /hpf (0-5) 09/19/18 15:28 Urine Bacteria Rare (<OCC) 09/19/18 15:28 Discharge Plan - Discharge Medications Prescriptions: Amoxicillin/Clavulanate [Augmentin 500 MG-125 MG] 1 tab PO BID #6 tab guaiFENesin [Mucinex LA] 600 mg PO BID #10 tab predniSONE [Prednisone] 10 mg PO DAILY #11 tab - Follow Up Plan Condition: GOOD Disposition: HOME/ ROUTINE Instructions: Urinary Tract Infection, Adult (DC), Amoxicillin and Clavulanate, Guaifenesin, Prednisone
--- NOTE | 2018-09-24 05:04 | DS ---
DISCHARGE DIAGNOSES: 1. Tracheobronchitis. 2. Exacerbation of asthma. 3. Urinary tract infection. 4. Type 2 diabetes. 5. Hypertension. HISTORY OF PRESENT ILLNESS: This is a 63-year-old female with history of bronchial asthma, diabetes, hypertension, anxiety, depression. She is compliant with her diet, medication, and followup. She is on home oxygen and nebulizer. She came in with lower abdominal pain, nausea, generalized weakness, dysuria. CT abdomen showed diverticulosis without diverticulitis. The patient improved with antibiotics. Urine cultures were positive for gram-positive cocci and she is here for discharge. Condition upon discharge is stable. PHYSICAL EXAMINATION: VITAL SIGNS: Blood pressure 154/84, pulse 84, respiratory rate 20, temperature 98.7. LUNGS: Decreased air entry. Positive rhonchi. CVS: S1, S2, regular. ABDOMEN: Soft. PLAN: Discharge the patient. Miquel Macias MD
== END 2018-09-23 13:15 | disposition home or self-care (01) | DRG 182 ==
LOC: C.ER 12:59 → C.3T 17:41
PROVIDERS: ADMIT Internal Medicine; ATTEND Internal Medicine
DX: K57.90 Diverticulosis of intestine, part unspecified, without perforation or abscess without bleeding (principal); J45.31 Mild persistent asthma with (acute) exacerbation; N39.0 Urinary tract infection, site not specified; J43.9 Emphysema, unspecified; J98.11 Atelectasis; F41.9 Anxiety disorder, unspecified; E11.9 Type 2 diabetes mellitus without complications; I10 Essential (primary) hypertension; E78.5 Hyperlipidemia, unspecified; F17.200 Nicotine dependence, unspecified, uncomplicated; F32.9 Major depressive disorder, single episode, unspecified; N20.0 Calculus of kidney

== ENCOUNTER 2018-11-28 09:50 | Outpatient (CLI) | payer MEDICAID | END 2018-11-28 09:51 | disposition home or self-care (01) | LOC: C.RADIC 09:51 | DX: R05 Cough (principal) ==

== ENCOUNTER 2018-11-30 10:30 | Observation (INO) | payer MEDICAID ==
[2018-11-30 10:30] VITALS: BMI 26.6
[2018-11-30] MEDS ORDERED: Albuterol-Ipratrop 3 mg / 0.5 (3 ml) UD ONE ×3 (10:44→11:28)
[2018-11-30] MEDS ORDERED: Albuterol-Ipratrop 3 mg / 0.5 (3 ml) UD INH STA ×2 (10:44→11:13)
--- NOTE | 2018-11-30 11:13 | C.PDOC ---
History Of Present Illness 60 y/o female pt with hx of asthma and COPD presents to the ER c/o SOB for x3 days. Associated sx includes wheezing. Pt denies chest pain, headache, fever, chills, cough, back pain, nausea and vomiting. Time Seen by Provider: 11/30/18 10:49 Chief Complaint (Nursing): Respiratory Distress History Per: Patient History/Exam Limitations: no limitations Onset/Duration Of Symptoms: Days (x3) Current Symptoms Are (Timing): Still Present Past Medical History Reviewed: Historical Data, Nursing Documentation, Vital Signs Vital Signs: Last Vital Signs Temp 98.8 F 11/30/18 10:35 Pulse 103 H 11/30/18 10:35 Resp 28 H 11/30/18 10:53 BP 155/82 H 11/30/18 10:35 Pulse Ox 96 11/30/18 10:53 - Medical History PMH: Anxiety, Arthritis, Asthma, COPD, Depression, Diabetes, Emphysema, HTN, Hypercholesterolemia Surgical History: Family History: States: Unknown Family Hx - Social History Hx Tobacco Use: Yes Hx Alcohol Use: No Hx Substance Use: No - Immunization History Hx Tetanus Toxoid Vaccination: No Hx Influenza Vaccination: No (Allergic to Eggs) Hx Pneumococcal Vaccination: No (Allergic to Eggs) Review Of Systems Except As Marked, All Systems Reviewed And Found Negative. Constitutional: Negative for: Fever, Chills Cardiovascular: Negative for: Chest Pain Respiratory: Positive for: Shortness of Breath, Wheezing. Negative for: Cough Gastrointestinal: Negative for: Nausea, Vomiting Musculoskeletal: Negative for: Back Pain Neurological: Negative for: Headache Physical Exam - Physical Exam Appears: Non-toxic, No Acute Distress Skin: Warm, Dry Head: Normacephalic Eye(s): bilateral: EOMI Chest: Symmetrical Cardiovascular: Rhythm Regular Respiratory: No Decreased Breath Sounds, No Accessory Muscle Use, No Rales, No Rhonchi, No Stridor, Wheezing Neurological/Psych: Oriented x3, Normal Speech, Normal Cognition ED Course And Treatment - Laboratory Results Result Diagrams: 11/30/18 11:29 11/30/18 11:29 O2 Sat by Pulse Oximetry: 96 (RA) Pulse Ox Interpretation: Normal - Other Rad chest X-Ray: Read By Radiologist Interpretation: Accession No. : [id number]. Patient Name / ID : TIRSTA ROSADO / [id number]. Exam Date : 11/30/2018 11:16:16 ( Approved ). Study Co mment : Sex / Age : F / 63Y. Creator : Julio Oconnell MD. Dictator : Julio Oconnell MD. Long Term Care Social Worker : Double Bottom Driver : Julio Oconnell MD. Approver2 : Report Date : 11/30/2018 16:24:21. My Comment : . Date of service: 11/30/2018. HISTORY: sob. COMPARISON: 11/28/2018. TECHNIQUE: 1 view obtained. FINDINGS: LUNGS: No active pulmonary disease. PLEURA: No significant pleural effusion identified, no pneumothorax apparent. CARDIOVASCULAR: No aortic atherosclerotic calcification present. Normal cardiac size. No pulmonary vascular congestion. OSSEOUS STRUCTURES: No significant abnormalities. VISUALIZED UPPER ABDOMEN: Normal. OTHER FINDINGS: None. IMPRESSION: No active disease. Progress Note: Plans: -- blood work. -- EKG. -- CXR. -- Neb. -- Solu-medrol IV. -- Magnesium IV. After re-evaluation patient still has wheezing and SOB. Case was d/w patient's PMD who accepted her to [facility] for observation and breathing treatment. -- albuterol. -- solu-medrol Disposition - Disposition Disposition: HOSPITALIZED Disposition Time: 12:38 Condition: FAIR - Clinical Impression Clinical Impression: COPD exacerbation - PA / SCHOOL SUPERINTENDENT / Resident Statement / has reviewed & agrees with the documentation as recorded. - Scribe Statement The provider has reviewed the documentation as recorded by the Dianne Mccurdy Do All medical record entries made by the Scribe were at my direction and personally dictated by me. I have reviewed the chart and agree that the record accurately reflects my personal performance of the history, physical exam, medical decision making, and the department course for this patient. I have also personally directed, reviewed, and agree with the discharge instructions and disposition. Decision To Admit - Pt Status Changed To: Hospital Disposition Of: Observation - . Bed Request Type: Telemetry Admitting Physician: Miquel Macias Patient Diagnosis: COPD exacerbation
[2018-11-30] MEDS ORDERED: Magnesium Sulfate 1 gm in D5W 1 GM/100 ML BAG IV STA (11:20)
[2018-11-30] MEDS ORDERED: Magnesium Sulfate 1 gm in D5W 1 GM/100 ML BAG IVPB ONE (11:28)
[2018-11-30 11:35] LABS: VENOUS BLOOD GAS BASE EXCESS 9.7 mmol/L (0.0-2.0); VENOUS BLOOD GAS PCO2 69 mmHg (40-60); VENOUS BLOOD GAS PO2 53 mm/Hg (30-55); VENOUS BLOOD PH 7.35 (7.32-7.43)
[2018-11-30 11:40] LABS: BASO # 0.1 K/uL (0.0-0.2); BASO % 0.5 % (0.0-2.0); HEMOGLOBIN 14.2 g/dL (11.0-16.0); LYMPH # 0.7 K/uL (1.0-4.3); LYMPH % 5.1 % (20.0-40.0); MEAN CELL VOLUME 94.9 fL (81.0-99.0); MEAN CORPUSCULAR HEMOGLOBIN 31.8 pg (27.0-31.0); MEAN CORPUSCULAR HGB CONC 33.5 g/dL (33.0-37.0); MEAN PLATELET VOLUME 8.1 fL (7.2-11.7); MONO # 0.3 K/uL (0.0-0.8); NEUT # 13.5 K/uL (1.8-7.0); NEUT % 92.4 % (50.0-75.0); NRBC % 0.1 % (0.0-2.0); PLATELET COUNT 381 K/uL (130-400); RBC 4.45 Mil/uL (3.80-5.20); WHITE BLOOD COUNT 14.6 K/uL (4.8-10.8)
[2018-11-30 11:56] LABS: ALB/GLOB RATIO 1.3 (1.0-2.1); ALBUMIN 4.4 g/dL (3.5-5.0); ALT/SGPT 12 U/L (9-52); AST/SGOT 21 U/L (14-36); B-TYPE NATRIURETIC PEPTIDE 238 pg/mL (0-900); BLOOD UREA NITROGEN 15 mg/dL (7-17); CALCIUM 9.5 mg/dl (8.6-10.4); CK-MB 0.64 ng/mL (0.0-3.38); GFR NON-AFRICAN AMERICAN > 60
[2018-11-30 12:31] LABS: LYMPHOCYTE 8 % (20-40); MONOCYTE 2 % (0-10); NEUTROPHIL 90 % (50-75); PLATELET ESTIMATE NORMAL (NORMAL); TOTAL CELLS COUNTED 100
[2018-11-30 12:32] LABS: ANISOCYTOSIS SLIGHT
[2018-11-30 12:33] LABS: OVALOCYTES SLIGHT
[2018-11-30] MEDS ORDERED: methylPREDNISolone 60 MG in Sodium Chloride 0.9% 100 ML IVPB SCH (13:30)
[2018-11-30] MEDS: Enoxaparin 40 mg Syringe SC SCH (14:14)
--- NOTE | 2018-11-30 16:28 | RAD ---
Date of service: 11/30/2018 HISTORY: sob COMPARISON: 11/28/2018 TECHNIQUE: 1 view obtained. FINDINGS: LUNGS: No active pulmonary disease. PLEURA: No significant pleural effusion identified, no pneumothorax apparent. CARDIOVASCULAR: No aortic atherosclerotic calcification present. Normal cardiac size. No pulmonary vascular congestion. OSSEOUS STRUCTURES: No significant abnormalities. VISUALIZED UPPER ABDOMEN: Normal. OTHER FINDINGS: None. IMPRESSION: No active disease.
[2018-11-30] MEDS: (Novolin R) Insulin Human Regular 100 units/ml vial SC SCH ×2 (17:47→21:38)
[2018-11-30] MEDS: guaiFENesin 600 mg ER Tab PO SCH (17:50)
[2018-11-30] MEDS: Albuterol-Ipratrop 3 mg / 0.5 (3 ml) UD INH SCH (20:09)
--- NOTE | 2018-11-30 20:32 | CP.PCM.HP ---
Present on Admission - Present on Admission Any Indicators Present on Admission: No Past Patient History - Infectious Disease Hx of Infectious Diseases: None - Past Medical History & Family History Past Medical History?: Yes - Past Social History Smoking Status: Current Some Days Smoker - CARDIAC Hx Hypercholesterolemia: Yes Hx Hypertension: Yes - PULMONARY Hx Asthma: Yes Hx Chronic Obstructive Pulmonary Disease (COPD): Yes Hx Emphysema: Yes - NEUROLOGICAL Hx Neurological Disorder: No - HEENT Hx HEENT Problems: No - RENAL Hx Chronic Kidney Disease: No - ENDOCRINE/METABOLIC Hx Endocrine Disorders: Yes Hx Diabetes Mellitus Type 2: Yes - HEMATOLOGICAL/ONCOLOGICAL Hx Blood Disorders: No - INTEGUMENTARY Hx Dermatological Problems: No - MUSCULOSKELETAL/RHEUMATOLOGICAL Hx Arthritis: Yes - GASTROINTESTINAL Hx Gastrointestinal Disorders: No - GENITOURINARY/GYNECOLOGICAL Hx Genitourinary Disorders: No - PSYCHIATRIC Hx Anxiety: Yes Hx Depression: Yes Hx Substance Use: No - SURGICAL HISTORY Hx Surgeries: Yes Hx Section: Yes - ANESTHESIA Hx Anesthesia: Yes Hx Anesthesia Reactions: No Meds Allergies/Adverse Reactions: Allergies Allergy/AdvReac Type Severity Reaction Status Date / Time aspirin Allergy VOMITING Verified 11/30/18 10:36 EGG Allergy RASH Verified 11/30/18 10:36 Results - Vital Signs Recent Vital Signs: Last Vital Signs Temp 98.4 F 11/30/18 16:00 Pulse 84 11/30/18 20:11 Resp 20 11/30/18 16:00 BP 129/68 11/30/18 16:00 Pulse Ox 96 11/30/18 16:29 - Labs Result Diagrams: 11/30/18 11:29 11/30/18 11:29 Labs: Laboratory Results - last 24 hr 11/30/18 11/30/18 11/30/18 11:29 11:29 11:30 WBC 14.6 H RBC 4.45 Hgb 14.2 Hct 42.2 MCV 94.9 D MCH 31.8 H MCHC 33.5 RDW 17.0 H Plt Count 381 MPV 8.1 Neut % (Auto) 92.4 H Lymph % (Auto) 5.1 L [place] % (Auto) 2.0 Eos % (Auto) 0.0 Baso % (Auto) 0.5 Neut # (Auto) 13.5 H Lymph # (Auto) 0.7 L [place] # (Auto) 0.3 Eos # (Auto) 0.0 Baso # (Auto) 0.1 Neutrophils % (Manual) 90 H Lymphocytes % (Manual) 8 L Monocytes % (Manual) 2 Platelet Estimate Normal Anisocytosis (manual) Slight Ovalocytes Slight pO2 53 VBG pH 7.35 VBG pCO2 69 H* VBG HCO3 32.2 VBG Total CO2 40.2 H VBG O2 Sat (Calc) 91.9 H VBG Base Excess 9.7 H VBG Potassium 4.7 Glucose 165 H Lactate 3.0 H Crit Value Called To Dr westbrook Crit Value Called By Brian valdez oxygen equipment aide Crit Value Read Back Y Blood Gas Notified Time 1134 Sodium 138 136.0 Potassium 5.4 H Chloride 92 L 97.0 L Carbon Dioxide 34 H Anion Gap 18 BUN 15 Creatinine 0.6 L Est GFR ( Amer) > 60 Est GFR (Non-Af Amer) > 60 POC Glucose (mg/dL) Random Glucose 165 H D Calcium 9.5 Total Bilirubin 0.5 AST 21 ALT 12 Alkaline Phosphatase 86 Total Creatine Kinase 31 CK-MB (Mass) 0.64 Troponin I < 0.0120 NT-Pro-B Natriuret Pep 238 Total Protein 7.7 Albumin 4.4 Globulin 3.3 Albumin/Globulin Ratio 1.3 Venous Blood Potassium 4.7 11/30/18 16:53 WBC RBC Hgb Hct MCV MCH MCHC RDW Plt Count MPV Neut % (Auto) Lymph % (Auto) [place] % (Auto) Eos % (Auto) Baso % (Auto) Neut # (Auto) Lymph # (Auto) [place] # (Auto) Eos # (Auto) Baso # (Auto) Neutrophils % (Manual) Lymphocytes % (Manual) Monocytes % (Manual) Platelet Estimate Anisocytosis (manual) Ovalocytes pO2 VBG pH VBG pCO2 VBG HCO3 VBG Total CO2 VBG O2 Sat (Calc) VBG Base Excess VBG Potassium Glucose Lactate Crit Value Called To Crit Value Called By Crit Value Read Back Blood Gas Notified Time Sodium Potassium Chloride Carbon Dioxide Anion Gap BUN Creatinine Est GFR ( Amer) Est GFR (Non-Af Amer) POC Glucose (mg/dL) 278 H Random Glucose Calcium Total Bilirubin AST ALT Alkaline Phosphatase Total Creatine Kinase CK-MB (Mass) Troponin I NT-Pro-B Natriuret Pep Total Protein Albumin Globulin Albumin/Globulin Ratio Venous Blood Potassium
[2018-12-01 01:14] VITALS: RESP 20
[2018-12-01] MEDS: Albuterol-Ipratrop 3 mg / 0.5 (3 ml) UD INH SCH ×5 (02:55→19:18)
--- NOTE | 2018-12-01 04:54 | HP ---
CHIEF COMPLAINT: Cough and shortness of breath. HISTORY OF PRESENT ILLNESS: This is a 63-year-old female, well known to me with history of anxiety, depression, bronchial asthma, hypertension, hyperlipidemia, osteoarthritis, osteoporosis, who is compliant with diet, medication, and followup. For the last three days, she has been having cough, congestion, and shortness of breath using thick white sputum production. No fevers, no chills, no chest pain upon coughing. She denies any chills. She has cough. She denies any nausea, vomiting, diarrhea. She denies any history of polyuria, polydipsia, polyphagia. She had back pain, knee pain, hip pain. She had tingling and numbness in the feet. She denies any history of headache or vertigo. She denies any history of loss of consciousness. She denies any history of seizure-like activity. She denies any involuntary movements. She is weak. She is constipated. She does smoke. She denies any hemoptysis, hematemesis, melena, hematochezia. There is no history of loss of consciousness. There is no history of head injury. No history of joint pain or hip pain. PAST MEDICAL HISTORY: Type 2 diabetes, hypertension, hyperlipidemia, bronchial asthma, anxiety, and depression. SOCIAL HISTORY: She smokes. She denies drinking. CURRENT MEDICATIONS: Prednisone, metformin, Mucinex, Risperdal, Pravachol, Singulair, Klonopin, albuterol. PHYSICAL EXAMINATION: GENERAL: An elderly female, in moderate respiratory distress. VITAL SIGNS: Blood pressure 129/68, pulse 78, respiratory rate 20, temperature 98.4. SKIN: Senile turgor. No bruises. No purpura. No petechiae. No ecchymosis. HEENT: Atraumatic, normocephalic. Negative pallor. Negative jaundice. Extraocular movements are intact. NECK: Supple. Using accessory muscles on respiration. No JVD. No lymph node. No thyromegaly. No carotid bruits. CHEST WALL: Bilaterally symmetrical expansion. No tenderness. No deformity. LUNGS: Bilateral decreased air entry. Bilateral inspiratory and expiratory rhonchi. Decreased air entry. CARDIOVASCULAR: S1 and S2 regular. No heave. No thrill. PMI in the fifth intercostal space. ABDOMEN: Soft, nontender. Bowel sounds are positive. RECTAL: No masses, no bleed. PELVIC: No vaginal discharge. No bleeding. No tenderness. EXTREMITIES: No clubbing, cyanosis, or edema. CENTRAL NERVOUS SYSTEM: Awake, alert, and oriented x3. Cranial nerves II through XII are normal. Power 5/5 x4. Plantars are downgoing. IMPRESSION: 1. Acute exacerbation of bronchial asthma. 2. Allergic rhinitis. 3. Type 2 diabetes. 4. Anxiety and depression. PLAN: Detailed orders are written. The patient has been seen and examined and the patient will be followed up closely. See the detailed orders. Miquel Macias MD
[2018-12-01] MEDS: (Novolin R) Insulin Human Regular 100 units/ml vial SC SCH ×4 (08:27→21:11)
[2018-12-01] MEDS: guaiFENesin 600 mg ER Tab PO SCH ×2 (09:19→17:51)
[2018-12-01] MEDS: Enoxaparin 40 mg Syringe SC SCH (09:20)
--- NOTE | 2018-12-01 10:53 | CP.PCM.PN ---
Subjective - Date & Time of Evaluation Date of Evaluation: 12/01/18 Time of Evaluation: 06:40 - Subjective Subjective: dict Objective - Vital Signs/Intake and Output Vital Signs (last 24 hours): Temp Pulse Resp BP Pulse Ox 98.5 F 67 20 129/67 98 11/30/18 23:35 12/01/18 07:38 11/30/18 23:35 11/30/18 23:35 11/30/18 23:35 - Medications Medications: Current Medications Albuterol/Ipratropium (Duoneb 3 Mg/0.5 Mg (3 Ml) Ud) 3 ml INH RQ6 [facility] Last Admin: 12/01/18 06:40 Dose: 3 ml Clonazepam (Klonopin) 0.5 mg PO DAILY [facility] Last Admin: 12/01/18 09:19 Dose: 0.5 mg Enoxaparin Sodium (Lovenox) 40 mg SC DAILY [facility] Last Admin: 12/01/18 09:20 Dose: 40 mg Gabapentin (Neurontin) 300 mg PO BID [facility] Last Admin: 12/01/18 09:19 Dose: 300 mg Guaifenesin (Mucinex La) 600 mg PO BID [facility] Last Admin: 12/01/18 09:19 Dose: 600 mg Insulin Human Regular (Novolin R) 0 unit SC [facility]; Protocol Last Admin: 12/01/18 08:27 Dose: 1 unit Metformin HCl (Glucophage) 500 mg PO DAILY [facility] Last Admin: 12/01/18 09:18 Dose: 500 mg Methylprednisolone (Solu-Medrol) 60 mg IVP Q12H [facility] Last Admin: 11/30/18 23:49 Dose: 60 mg Pneumococcal Polyvalent Vaccine (Pneumovax 23 Vaccine) 0.5 ml IM .ONCE ONE Stop: 12/02/18 10:01 Risperidone (Risperdal Tab) 3 mg PO DAILY [facility] Last Admin: 12/01/18 09:19 Dose: 3 mg Rosuvastatin Calcium (Crestor) 5 mg PO HS [facility] - Labs Labs: 11/30/18 11:29 11/30/18 11:29
[2018-12-01 14:12] LABS: HEMOGLOBIN 13.7 g/dL (11.0-16.0); MEAN CELL VOLUME 94.4 fL (81.0-99.0); MEAN CORPUSCULAR HEMOGLOBIN 30.8 pg (27.0-31.0); MEAN CORPUSCULAR HGB CONC 32.7 g/dL (33.0-37.0); MEAN PLATELET VOLUME 8.2 fL (7.2-11.7); RBC 4.44 Mil/uL (3.80-5.20); RED CELL DISTRIBUTION WIDTH 16.3 % (11.5-14.5); WHITE BLOOD COUNT 13.9 K/uL (4.8-10.8)
[2018-12-01 14:26] LABS: BLOOD UREA NITROGEN 25 mg/dL (7-17); CALCIUM 8.9 mg/dl (8.6-10.4); GFR NON-AFRICAN AMERICAN 56
[2018-12-02 01:42] VITALS: TEMP 98
[2018-12-02] MEDS: Albuterol-Ipratrop 3 mg / 0.5 (3 ml) UD INH SCH ×3 (02:20→14:01)
--- NOTE | 2018-12-02 03:45 | PN ---
DATE: 12/01/2018 SUBJECTIVE: The patient is less short of breath, less cough, less wheezing. She has back pain, leg pain, knee pain. No nausea, vomiting. No dizziness. PHYSICAL EXAMINATION: VITAL SIGNS: Blood pressure is 136/70, pulse 74, respiratory rate 20, temperature 99. LUNGS: Bilateral inspiratory and expiratory rhonchi. Decreased air entry. CARDIOVASCULAR SYSTEM: S1, S2, regular. ABDOMEN: Soft. ASSESSMENT: 1. Acute exacerbation of bronchial asthma. 2. Diabetes. 3. Hypertension. 4. Osteoarthritis. PLAN: Medical management. Monitor the patient. Miquel Macias MD
[2018-12-02 08:12] VITALS: BP 121/62; O2SAT 94
[2018-12-02] MEDS: (Novolin R) Insulin Human Regular 100 units/ml vial SC SCH ×2 (08:26→12:25)
[2018-12-02] MEDS: guaiFENesin 600 mg ER Tab PO SCH (09:33)
[2018-12-02] MEDS: Enoxaparin 40 mg Syringe SC SCH (09:35)
[2018-12-02] MEDS ORDERED: Pneumococcal 23-Valent Vaccine IM ONE (10:00)
[2018-12-02 13:27] VITALS: PULSE 65
--- NOTE | 2018-12-02 14:47 | CP.PCM.PN ---
Subjective - Date & Time of Evaluation Date of Evaluation: 12/02/18 Time of Evaluation: 14:47 - Subjective Subjective: PATIENT SEEN AND EXAMINED AT THE BEDSIDE Objective - Vital Signs/Intake and Output Vital Signs (last 24 hours): Temp Pulse Resp BP Pulse Ox 98 F 65 20 121/62 94 L 12/02/18 08:00 12/02/18 14:13 12/02/18 08:00 12/02/18 08:00 12/02/18 14:13 - Medications Medications: Current Medications Albuterol/Ipratropium (Duoneb 3 Mg/0.5 Mg (3 Ml) Ud) 3 ml INH RQ6 [facility] Last Admin: 12/02/18 14:01 Dose: 3 ml Clonazepam (Klonopin) 0.5 mg PO [facility] Enoxaparin Sodium (Lovenox) 40 mg SC DAILY [facility] Last Admin: 12/02/18 09:35 Dose: 40 mg Gabapentin (Neurontin) 300 mg PO BID [facility] Last Admin: 12/02/18 09:33 Dose: 300 mg Guaifenesin (Mucinex La) 600 mg PO BID [facility] Last Admin: 12/02/18 09:33 Dose: 600 mg Insulin Human Regular (Novolin R) 0 unit SC [facility]; Protocol Last Admin: 12/02/18 12:25 Dose: 1 unit Metformin HCl (Glucophage) 500 mg PO DAILY [facility] Last Admin: 12/02/18 09:33 Dose: 500 mg Methylprednisolone (Solu-Medrol) 60 mg IVP DAILY [facility] Risperidone (Risperdal Tab) 3 mg PO DAILY [facility] Last Admin: 12/02/18 09:34 Dose: 3 mg Rosuvastatin Calcium (Crestor) 5 mg PO HS [facility] Last Admin: 12/01/18 21:58 Dose: 5 mg Tramadol HCl (Ultram) 50 mg PO Q8 PRN PRN Reason: Pain, moderate (4-7) Last Admin: 12/02/18 12:58 Dose: 50 mg Zolpidem Tartrate (Ambien) 5 mg PO HS PRN PRN Reason: Insomnia Last Admin: 12/01/18 22:57 Dose: 5 mg - Labs Labs: 12/01/18 13:59 12/01/18 13:59 Assessment and Plan - Assessment and Plan (Free Text) Assessment: FOLLOW UP WITH DR GONZALEZ IN HIS OFFICE CONTINUE HOME MEDICATION NEW PRESCRIPTION GIVEN PREDNISONE TAPER ACTIVITY TOLERATED CALL DR KRAUS OR GO TO THE EMERGENCY ROOM IF SYMPTOM RETURN OR WORSENING
--- NOTE | 2018-12-02 20:22 | CP.PCM.DIS ---
Provider - Provider Date of Admission: 11/30/18 12:37 Attending physician: Miquel Macias MD Time Spent in preparation of Discharge (in minutes): 30 Hospital Course - Lab Results Lab Results: Micro Results 11/30/18 11:56 Blood Blood Culture - Preliminary NO GROWTH AFTER 48 HOURS 11/30/18 11:56 Blood Blood Culture - Preliminary NO GROWTH AFTER 48 HOURS Most Recent Lab Values WBC 13.9 K/uL (4.8-10.8) H 12/01/18 13:59 RBC 4.44 Mil/uL (3.80-5.20) 12/01/18 13:59 Hgb 13.7 g/dL (11.0-16.0) 12/01/18 13:59 Hct 41.9 % (34.0-47.0) 12/01/18 13:59 MCV 94.4 fL (81.0-99.0) 12/01/18 13:59 MCH 30.8 pg (27.0-31.0) 12/01/18 13:59 MCHC 32.7 g/dL (33.0-37.0) L 12/01/18 13:59 RDW 16.3 % (11.5-14.5) H 12/01/18 13:59 Plt Count 333 K/uL (130-400) 12/01/18 13:59 MPV 8.2 fL (7.2-11.7) 12/01/18 13:59 Neut % (Auto) 92.4 % (50.0-75.0) H 11/30/18 11:29 Lymph % (Auto) 5.1 % (20.0-40.0) L 11/30/18 11:29 Yancey % (Auto) 2.0 % (0.0-10.0) 11/30/18 11:29 Eos % (Auto) 0.0 % (0.0-4.0) 11/30/18 11:29 Baso % (Auto) 0.5 % (0.0-2.0) 11/30/18 11:29 Neut # (Auto) 13.5 K/uL (1.8-7.0) H 11/30/18 11:29 Lymph # (Auto) 0.7 K/uL (1.0-4.3) L 11/30/18 11:29 Yancey # (Auto) 0.3 K/uL (0.0-0.8) 11/30/18 11:29 Eos # (Auto) 0.0 K/uL (0.0-0.7) 11/30/18 11:29 Baso # (Auto) 0.1 K/uL (0.0-0.2) 11/30/18 11:29 Neutrophils % (Manual) 90 % (50-75) H 11/30/18 11:29 Lymphocytes % (Manual) 8 % (20-40) L 11/30/18 11:29 Monocytes % (Manual) 2 % (0-10) 11/30/18 11:29 Platelet Estimate Normal (NORMAL) 11/30/18 11:29 Anisocytosis (manual) Slight 11/30/18 11:29 Ovalocytes Slight 11/30/18 11:29 pO2 53 mm/Hg (30-55) 11/30/18 11:30 VBG pH 7.35 (7.32-7.43) 11/30/18 11:30 VBG pCO2 69 mmHg (40-60) H* 11/30/18 11:30 VBG HCO3 32.2 mmol/L 11/30/18 11:30 VBG Total CO2 40.2 mmol/L (22-28) H 11/30/18 11:30 VBG O2 Sat (Calc) 91.9 % (40-65) H 11/30/18 11:30 VBG Base Excess 9.7 mmol/L (0.0-2.0) H 11/30/18 11:30 VBG Potassium 4.7 mmol/L (3.6-5.2) 11/30/18 11:30 Sodium 136.0 mmol/l (132-148) 11/30/18 11:30 Chloride 97.0 mmol/L (98-107) L 11/30/18 11:30 Glucose 165 mg/dl (65-105) H 11/30/18 11:30 Lactate 3.0 mmol/L (0.7-2.1) H 11/30/18 11:30 Crit Value Called To Dr westbrook 11/30/18 11:30 Crit Value Called By Brian valdez dishwasher busser 11/30/18 11:30 Crit Value Read Back Y 11/30/18 11:30 Blood Gas Notified Time 1134 11/30/18 11:30 Sodium 139 mmol/L (132-148) 12/01/18 13:59 Potassium 4.4 mmol/L (3.6-5.2) 12/01/18 13:59 Chloride 92 mmol/L (98-107) L 12/01/18 13:59 Carbon Dioxide 39 mmol/L (22-30) H 12/01/18 13:59 Anion Gap 12 (10-20) 12/01/18 13:59 BUN 25 mg/dL (7-17) H 12/01/18 13:59 Creatinine 1.0 mg/dL (0.7-1.2) 12/01/18 13:59 Est GFR ( Amer) > 60 12/01/18 13:59 Est GFR (Non-Af Amer) 56 12/01/18 13:59 POC Glucose (mg/dL) 183 mg/dL (65-110) H 12/02/18 11:31 Random Glucose 129 mg/dL (65-105) H D 12/01/18 13:59 Calcium 8.9 mg/dl (8.6-10.4) 12/01/18 13:59 Total Bilirubin 0.5 mg/dL (0.2-1.3) 11/30/18 11:29 AST 21 U/L (14-36) 11/30/18 11:29 ALT 12 U/L (9-52) 11/30/18 11:29 Alkaline Phosphatase 86 U/L (38-126) 11/30/18 11:29 Total Creatine Kinase 31 U/L (30-135) 11/30/18 11:29 CK-MB (Mass) 0.64 ng/mL (0.0-3.38) 11/30/18 11:29 Troponin I < 0.0120 ng/mL (0.00-0.120) 11/30/18 11:29 NT-Pro-B Natriuret Pep 238 pg/mL (0-900) 11/30/18 11:29 Total Protein 7.7 g/dL (6.3-8.3) 11/30/18 11:29 Albumin 4.4 g/dL (3.5-5.0) 11/30/18 11:29 Globulin 3.3 gm/dL (2.2-3.9) 11/30/18 11:29 Albumin/Globulin Ratio 1.3 (1.0-2.1) 11/30/18 11:29 Venous Blood Potassium 4.7 mmol/L (3.6-5.2) 11/30/18 11:30 Discharge Plan - Discharge Medications Prescriptions: Famotidine [Pepcid] 20 mg PO DAILY 30 Days tab predniSONE [predniSONE Tab] 10 mg PO DAILY #11 tab Albuterol HFA [Ventolin HFA 90 mcg/actuation (8 g)] 0.09 mg IH Q6 #1 puff - Follow Up Plan Condition: FAIR Disposition: HOME/ ROUTINE Instructions: Exacerbation of COPD (DC), Medicines for Chronic Obstructive Pulmonary Disease (COPD), Prednisone, Risk Factors for COPD Additional Instructions: FOLLOW UP WITH DR GONZALEZ IN HIS OFFICE CONTINUE HOME MEDICATION NEW PRESCRIPTION GIVEN PREDNISONE TAPER ACTIVITY TOLERATED CALL DR MACIAS OR GO TO THE EMERGENCY ROOM IF SYMPTOM RETURN OR WORSENING SEGUIRSE CON EL DR GONZALEZ EN MORFIN OFICINA CONTINUAR MEDICAMENTOS EN [place] NUEVA PRESCRIPCIN SONIA TAPER DE PREDNISONA LA ACTIVIDAD ANGEL TOLERADA LLAME AL DR. MACIAS O VAYA A LA YUKO DE EMERGENCIA SI EL SNTOMA DEVUELVE O CONSIDERA Referrals: Miquel Macias MD [Staff Provider] -
--- NOTE | 2018-12-03 04:45 | DS ---
DISCHARGE DIAGNOSES: 1. Chronic obstructive pulmonary disease exacerbation. 2. Diabetes. 3. Hypertension. 4. Anxiety and depression. HISTORY OF PRESENT ILLNESS: This is a 63-year-old female with history of diabetes, hypertension, anxiety, depression, came in because of cough, congestion, shortness of breath, wheezing. The patient is using Solu-Medrol, oxygen nebulizer treatment, and antibiotics. The patient did well and she is for discharge. CONDITION UPON DISCHARGE: Stable. PHYSICAL EXAMINATION: VITAL SIGNS: Blood pressure 121/62, pulse 65, respiratory rate 20, temperature 98. LUNGS: Bilateral scattered rales and rhonchi. CARDIOVASCULAR SYSTEM: S1, S2. Regular. ABDOMEN: Soft. ASSESSMENT: 1. Exacerbation of chronic obstructive pulmonary disease. 2. Diabetes. 3. Hypertension. PLAN: Discharge. Miquel Macias MD
--- NOTE | 2018-12-03 12:47 | CARD ---
APPROVED REPORT Date of service: 11/30/2018 EKG Measurement Heart [id number] <Conclusion> Normal sinus rhythm Biatrial enlargement Left axis deviation Pulmonary disease pattern Incomplete left bundle branch block Abnormal ECG
== END 2018-12-02 16:46 | disposition home or self-care (01) ==
LOC: C.ER 10:30 → C.9E 12:37 → C.5S 12:55
PROVIDERS: ADMIT Internal Medicine; ATTEND Internal Medicine
DX: J44.1 Chronic obstructive pulmonary disease with (acute) exacerbation (principal); I10 Essential (primary) hypertension; F41.9 Anxiety disorder, unspecified; E78.5 Hyperlipidemia, unspecified; F17.200 Nicotine dependence, unspecified, uncomplicated; E11.9 Type 2 diabetes mellitus without complications; J45.901 Unspecified asthma with (acute) exacerbation; K59.00 Constipation, unspecified; M19.90 Unspecified osteoarthritis, unspecified site; F32.9 Major depressive disorder, single episode, unspecified
CPT/HCPCS: 36415; 71045; 80048; 80053; 82803; 82948; 83880; 84484; 85025; 85027; 87040; 90471; 90732; 94640; 97116; 97162; 97166; 97530; 99285; G0378; G8978; G8979; G8987; G8988; J1650; J2930; J3475